=== PATIENT | female | born 1955 | race Caucasian/White ===

== ENCOUNTER → 2018-03-23 07:54 | Outpatient (CLI) | payer OTHER, SELFPAY ==
--- NOTE | 2018-03-23 07:57 | BI_ITS ---
MAMMOGRAPHY - BILATERAL SCREENING REASON FOR EXAM: Female, 62 years old. Routine annual screening examination. PERTINENT HISTORY: Non-contributory. Prior right breast biopsies. TECHNIQUE: Digital bilateral breast shmuel (3D mammographic acquisition) in the CC and MLO projections. 2-D mediolateral oblique (MLO) and craniocaudad (CC) views of both breasts were obtained. CAD: Full Field Digital Mammography with Computer Added Detection was performed. COMPARISON: Comparison is made with prior study dated February 22, 2017 and February 05, 2010. FINDINGS: Breast Composition: The breasts are heterogeneously dense, which may obscure small masses. There are no dominant masses or suspicious calcifications. A tissue clip marker is once again seen in the deep upper lateral portion of the right breast. A subcentimeter well-defined nodular density is seen at that site. This is unchanged. A tissue clip marker is also seen in the retroareolar region of the left breast. Stable benign appearing bilateral axillary lymph nodes. No other significant abnormalities are identified. There has been no significant change since the prior study. BI/SCREENING MAMM (CAD), BILAT IMPRESSION: Stable bilateral screening mammogram. Yearly follow-up mammogram recommended. (A) ASSESSMENT CATEGORY: BIRADS Category 2: Benign. A letter regarding these results will be sent to the patient by the facility within 30 days. Approximately 10% of breast cancers are not detected by mammography. A normal mammogram should not delay biopsy of a clinically suspicious abnormality. [id number] Electronically Signed: Andres Veras MD at 9:31 EST Tel [phone], Service support ,
== END ==
PROVIDERS: Family Provider Family Medicine; PCP Family Medicine; Referring Provider Obstetrics & Gynecology; Visit Provider Obstetrics & Gynecology
DX: Z12.31 Encounter for screening mammogram for malignant neoplasm of breast (principal)
CPT/HCPCS: 77063; 77067

== ENCOUNTER → 2018-05-30 14:32 | Outpatient (CLI) | payer OTHER, SELFPAY ==
[2018-06-06 11:06] LABS: HPV Reflexed? NOT INDICATED
== END ==
PROVIDERS: Visit Provider Obstetrics & Gynecology
DX: Z12.4 Encounter for screening for malignant neoplasm of cervix (principal)
CPT/HCPCS: 88175; G0145

== ENCOUNTER → 2018-06-07 10:03 | Outpatient (CLI) | payer OTHER, SELFPAY ==
[2018-06-08 11:29] LABS: DHEA Sulfate 56.5 ug/dL (29.4-220.5)
== END ==
PROVIDERS: Referring Provider Obstetrics & Gynecology; Visit Provider Obstetrics & Gynecology
DX: R53.83 Other fatigue (principal)
CPT/HCPCS: 82533; 82627; 82626

== ENCOUNTER → 2018-07-17 08:27 | Outpatient (CLI) | payer OTHER, SELFPAY ==
--- NOTE | 2018-07-17 08:30 | BD_ITS ---
STUDY: DUAL ENERGY X-RAY ABSORPTIOMETRY / DXA REASON FOR EXAM: Female, 62 years old. The patient is postmenopausal. Loss of height. TECHNIQUE: Bone Mineral Density (BMD) measurements of lumbar spine and left hip were obtained. COMPARISON: None. FINDINGS: Lumbar Spine (L1-L4): g/cm2 (1.142) / T-score (-0.3) / Z-score (1.2) Findings are suggestive of normal bone density with a low fracture risk. Left Femur Total: g/cm2 (0.776) / T-score (-1.8) / Z-score (-0.7) Left Femoral Neck: g/cm2 (0.697) / T-score (-2.5) / Z-score (-1.1) BD/Dexa Bone Density Study IMPRESSION: The patient is considered osteopenic as outlined below according to World [employer] Organization (WHO) criteria with a high fracture risk. Reference Information: The T-score is the number of standard deviations above or below the standard which is normal for young adults at their peak bone mineral density. The World Health Organization (WHO) interprets the T-scores as follows: Above -1 Normal bone density Between -1 and -2.5 Osteopenia Equal to / or below -2.5 Osteoporosis As a practical clinical guideline, osteopenia may be graded as follows: Mild -1 through -1.5 Moderate -1.6 through -2.0 Severe -2.1 through -2.4 The Z-score is the number of standard deviations above or below age-matched controls. A Z-score of less than -1.5 would be considered abnormal. References: 1. NIH Osteoporosis and Related Bone Diseases http://www.osteo.org 2. International Society for Clinical Densitometry http://www.iscd.org 3. National Osteoporosis Foundation http://www.nof.org Electronically Signed: Andres Veras, at 15:18 EDT , Service support ,
== END ==
PROVIDERS: PCP Family Medicine; Referring Provider Obstetrics & Gynecology; Visit Provider Obstetrics & Gynecology
DX: Z13.820 Encounter for screening for osteoporosis (principal)
CPT/HCPCS: 77080

== ENCOUNTER → 2019-05-28 08:41 | Outpatient (CLI) | payer OTHER, SELFPAY ==
--- NOTE | 2019-05-28 08:50 | BI_ITS ---
MAMMOGRAPHY - BILATERAL SCREENING REASON FOR EXAM: Female, 63 years old. Routine annual screening examination. PERTINENT HISTORY: Non-contributory. TECHNIQUE: Digital bilateral breast ari (3D mammographic acquisition) in the CC and MLO projections. 2-D mediolateral oblique (MLO) and craniocaudad (CC) views of both breasts were obtained. CAD: Full Field Digital Mammography with Computer Added Detection was performed. COMPARISON: Comparison is made with prior study dated March 23, 2018 and February 22, 2017. FINDINGS: Breast Composition: The breasts are heterogeneously dense, which may obscure small masses. There are no dominant masses or suspicious calcifications. A tissue clip marker is once again seen in the deep upper lateral aspect of the right breast. A subcentimeter well-defined nodular density is seen at that site. This is unchanged. A tissue clip marker is also seen in the retroareolar region of the left breast. No other significant abnormalities are identified. There has been no significant change since the prior study. BI/SCREEN MAMM (CAD) W/ARI BILAT IMPRESSION: Stable bilateral screening mammogram. Yearly follow-up mammogram recommended. (A) ASSESSMENT CATEGORY: BIRADS Category 2: Benign. A letter regarding these results will be sent to the patient by the facility within 30 days. Approximately 10% of breast cancers are not detected by mammography. A normal mammogram should not delay biopsy of a clinically suspicious abnormality. [id number] Electronically Signed: Andres Veras, at 10:41 EST , Service support ,
== END ==
PROVIDERS: PCP Family Medicine; Referring Provider Obstetrics & Gynecology; Visit Provider Obstetrics & Gynecology
DX: Z12.31 Encounter for screening mammogram for malignant neoplasm of breast (principal)
CPT/HCPCS: 77063; 77067

== ENCOUNTER → 2020-03-24 16:43 | Outpatient (CLI) | payer OTHER, SELFPAY | PROVIDERS: PCP Family Medicine; Visit Provider Family Medicine | DX: J32.9 Chronic sinusitis, unspecified (principal) | CPT/HCPCS: 87635; U0003 ==

== ENCOUNTER → 2020-07-30 10:55 | Outpatient (CLI) | payer OTHER, SELFPAY ==
--- NOTE | 2020-07-30 10:58 | BI_ITS ---
MAMMOGRAPHY - BILATERAL SCREENING REASON FOR EXAM: Female, 64 years old. Routine annual screening examination. PERTINENT HISTORY: Non-contributory. Remote right stereotactic breast biopsy. TECHNIQUE: Digital bilateral breast ari (3D mammographic acquisition) in the CC and MLO projections. 2-D mediolateral oblique (MLO) and craniocaudad (CC) views of both breasts were obtained. CAD: Full Field Digital Mammography with Computer Added Detection was performed. COMPARISON: Comparison is made with prior study dated 05/28/2019 and 03/23/2018. FINDINGS: Breast Composition: The breasts are heterogeneously dense, which may obscure small masses. There are no dominant masses or suspicious calcifications. Once again, tissue clip marker is seen in the deep upper lateral aspect of the right breast. A tiny nodular density is seen at the biopsy site. This is unchanged. A patient with markers also seen in the retroareolar region of the left breast. No other significant abnormalities are identified. There has been no significant change since the prior study. BI/SCRN MAMM (CAD)W/ARI BILAT IMPRESSION: Stable bilateral screening mammogram. Yearly follow-up mammogram recommended. (A) ASSESSMENT CATEGORY: BIRADS Category 2: Benign. A letter regarding these results will be sent to the patient by the facility within 30 days. Approximately 10% of breast cancers are not detected by mammography. A normal mammogram should not delay biopsy of a clinically suspicious abnormality. [id number] Electronically Signed: Andres Veras MD at 12:20 EDT , Service support ,
--- NOTE | 2020-07-30 10:59 | BD_ITS ---
STUDY: DUAL ENERGY X-RAY ABSORPTIOMETRY / DXA REASON FOR EXAM: Female, 64 years old. [id number]. The patient is postmenopausal. Loss of height. TECHNIQUE: Bone Mineral Density (BMD) measurements of lumbar spine and left hip were obtained. COMPARISON: Comparison is made with prior examination dated 07/17/2018. FINDINGS: Lumbar Spine (L1-L4): g/cm2 (1.101) / T-score (-0.7) / Z-score (0.9) Findings are suggestive of normal bone density with a low fracture risk. Left Femur Total: g/cm2 (0.776) / T-score (-1.8) / Z-score (-0.6) Left Femoral Neck: g/cm2 (0.712) / T-score (-2.3) / Z-score (-0.9) The T-Scores on the most recent prior examination were: Lumbar Spine (L1-L4): There has been worsening of bone density since the previous examination. Left t Femur Total: which represents no significant change. . BD/Dexa Bone Density Study IMPRESSION: The patient is considered osteopenic as outlined below according to World [employer] Organization (WHO) criteria with a high fracture risk. There has been worsening of bone density since the previous examination. Reference Information: The T-score is the number of standard deviations above or below the standard which is normal for young adults at their peak bone mineral density. The World Health Organization (WHO) interprets the T-scores as follows: Above -1 Normal bone density Between -1 and -2.5 Osteopenia Equal to / or below -2.5 Osteoporosis As a practical clinical guideline, osteopenia may be graded as follows: Mild -1 through -1.5 Moderate -1.6 through -2.0 Severe -2.1 through -2.4 The Z-score is the number of standard deviations above or below age-matched controls. A Z-score of less than -1.5 would be considered abnormal. References: 1. NIH Osteoporosis and Related Bone Diseases www osteo.org 2. International Society for Clinical Densitometry www iscd.org 3. National Osteoporosis Foundation www nof.org Electronically Signed: Andres Veras MD at 14:44 EDT , Service support ,
== END ==
PROVIDERS: PCP Family Medicine; Referring Provider Student in an Organized Health Care Education/Training Program; Visit Provider Student in an Organized Health Care Education/Training Program
DX: Z12.31 Encounter for screening mammogram for malignant neoplasm of breast (principal); Z13.820 Encounter for screening for osteoporosis
CPT/HCPCS: 77063; 77067; 77080

== ENCOUNTER → 2020-11-12 08:07 | Outpatient (CLI) | payer OTHER, SELFPAY ==
[2020-11-12 10:13] LABS: Hemoglobin 12.6 g/dL (12.0-15.0); Mean Corp Hgb Conc 32.3 g/dL (32-36); Mean Corpuscular Hgb 28.5 pg (27.0-32.0); Mean Corpuscular Volume 88.2 fL (81-99); Mean Platelet Vol. 9.5 fl (6.2-12.0); Platelet Count 341 K/mm3 (150-450); RBC Distribution Width CV 14.3 % (11.6-14.6); RBC Distribution Width SD 46.1 fl (35.1-43.9); Red Blood Count 4.42 M/mm3 (4.2-5.4); White Blood Count 4.5 K/mm3 (4.4-11.0)
[2020-11-12 10:38] LABS: Vitamin B12 1495 pg/mL (211-911)
[2020-11-12 11:23] LABS: Ferritin 35 ng/mL (8-252); Iron 53 ug/dL (50-170); Iron Binding Capacity,Total 334 ug/dL (250-450); T4 Free Direct 0.96 ng/dL (0.76-1.46)
[2020-11-12 16:21] LABS: Vitamin D,25 Hydroxy 47.1 ng/mL
[2020-11-12 16:26] LABS: Free T3 3.4 pg/mL (2.18-3.98); T3 Uptake 36 % (30-39)
[2020-11-14 13:10] LABS: Zinc, Plasma or Serum 113 ug/dL (44-115)
== END ==
LOC: MTLAB 08:09
PROVIDERS: PCP Family Medicine; Referring Provider Dermatology; Visit Provider Dermatology
DX: L65.0 Telogen effluvium (principal); L30.9 Dermatitis, unspecified
CPT/HCPCS: 36415; 82306; 82607; 82652; 82728; 82746; 83540; 83550; 84439; 84443; 84479; 84481; 84630; 85027

== ENCOUNTER → 2021-03-01 16:20 | Outpatient (CLI) | payer OTHER, SELFPAY ==
--- NOTE | 2021-03-01 16:24 | RAD_ITS ---
STUDY: X-RAY CHEST REASON FOR EXAM: Female, 65 years old. CHEST PAIN COUGH TECHNIQUE: XR Chest 2 Views COMPARISON: 8.19.16 FINDINGS: There are bilateral pleural effusions. There are bilateral infiltrates. Normal size heart. Normal mediastinum and juan pablo. Normal visualized pulmonary arteries. Normal visualized aortic arch and descending thoracic aorta. There are diffuse degenerative changes of the visualized thoracic spine. Normal visualized ribs, clavicles, and shoulders. There is no demonstrated abnormality of the visualized soft tissue structures of the upper abdomen. RAD/Chest PA and Lateral IMPRESSION: There are no acute findings. Electronically Signed: Anoop Raymundo MD at 16:36 EST , Service support ,
== END ==
PROVIDERS: PCP Family Medicine; Referring Provider Nurse Practitioner Family; Visit Provider Nurse Practitioner Family
DX: R05.9 Cough, unspecified (principal)
CPT/HCPCS: 71046

== ENCOUNTER 2021-07-27 09:50 | Outpatient (CLI) | payer OTHER, SELFPAY ==
[2021-08-04 10:26] LABS: HPV APTIMA, High Risk Negative (Negative)
== END 2021-07-27 23:59 | disposition home or self-care (01) ==
LOC: LABSPEC 09:56
PROVIDERS: PCP Family Medicine; Visit Provider Student in an Organized Health Care Education/Training Program
DX: Z12.4 Encounter for screening for malignant neoplasm of cervix (principal)
CPT/HCPCS: 87624; 88175; G0145

== ENCOUNTER → 2021-08-06 | Outpatient (CLI) | payer OTHER, SELFPAY ==
--- NOTE | 2021-08-06 08:45 | BI_ITS ---
MAMMOGRAPHY - BILATERAL SCREENING 3-D TOMOSYNTHESIS REASON FOR EXAM: Female, 65 years old. SCREENING PERTINENT HISTORY: No significant family history. TECHNIQUE: 2-D mammograms and 3-D Tomosynthesis of the breast (s) were performed. CAD was performed. COMPARISON: 07/30/2020 FINDINGS: The breast composition is heterogeneously dense that can obscure small breast masses. Scattered benign calcifications are seen. No dense spiculated masses or suspicious microcalcifications are identified. No architectural distortion is identified. There is no skin thickening or retraction. There has been no significant change since the prior study. BI/SCRN MAMM (CAD)W/ARI BILAT IMPRESSION: No mammographic signs of malignancy. Routine yearly mammograms recommended. ASSESSMENT CATEGORY: BIRADS Category 1: Negative. A letter regarding these results will be sent to the patient by the facility within 30 days. FOLLOW UP RECOMMENDATION: Yearly follow up mammogram recommended. (A) Approximately 10% of breast cancers are not detected by mammography. A normal mammogram should not delay biopsy of a clinically suspicious abnormality. Electronically Signed: Rodri Moeller MD at 9:38 EDT ,
== END | disposition home or self-care (01) ==
LOC: OPBI 08:44
PROVIDERS: Referring Provider Student in an Organized Health Care Education/Training Program; Visit Provider Student in an Organized Health Care Education/Training Program
DX: Z12.31 Encounter for screening mammogram for malignant neoplasm of breast (principal)
CPT/HCPCS: 77063; 77067

== ENCOUNTER → 2022-02-18 | Outpatient (CLI) | payer OTHER, SELFPAY ==
--- NOTE | 2022-02-18 11:15 | RAD_ITS ---
STUDY: X-RAY CHEST REASON FOR EXAM: Female, 66 years old. BRONCHITIS TECHNIQUE: Frontal and lateral views of the chest. COMPARISON: 12/04/2015 and 03/01/2021 FINDINGS: The lungs remain hyperinflated. There is no new focal consolidation. Normal size heart. Normal mediastinum and juan pablo. Normal visualized pulmonary arteries. Normal visualized aortic arch and descending thoracic aorta. Normal visualized thoracic spine. Normal visualized ribs, clavicles, and shoulders. There is no demonstrated abnormality of the visualized soft tissue structures of the upper abdomen. RAD/Chest PA and Lateral IMPRESSION: Stable examination demonstrating no acute cardiopulmonary process. Electronically Signed: Mimi Rosado MD at 14:10 EDT ,
== END | disposition home or self-care (01) ==
LOC: MTLAB 11:13
PROVIDERS: PCP Family Medicine; Referring Provider Family Medicine; Visit Provider Family Medicine
DX: J20.9 Acute bronchitis, unspecified (principal)
CPT/HCPCS: 71046

== ENCOUNTER → 2022-08-15 | Outpatient (CLI) | payer OTHER, SELFPAY ==
--- NOTE | 2022-08-15 08:34 | BI_ITS ---
MAMMOGRAPHY - BILATERAL SCREENING REASON FOR EXAM: Female, 66 years old. Routine annual screening examination. PERTINENT HISTORY: Non-contributory. History of prior right stereotactic breast biopsy. TECHNIQUE: Digital bilateral breast ari (3D mammographic acquisition) in the CC and MLO projections. 2-D mediolateral oblique (MLO) and craniocaudad (CC) views of both breasts were obtained. CAD: Full Field Digital Mammography with Computer Added Detection was performed. COMPARISON: Comparison is made with prior study dated August 06, 2021 and July 30, 2020. FINDINGS: Breast Composition: The breasts are heterogeneously dense, which may obscure small masses. There are no dominant masses or suspicious calcifications. A tissue clip marker is once again seen in the deep upper lateral aspect of the right breast. A tissue clip marker is also seen in the retroareolar region of the left breast. No other significant abnormalities are identified. There has been no significant change since the prior study. BI/SCRN MAMM (CAD)W/ARI BILAT IMPRESSION: Stable bilateral screening mammogram. Yearly follow-up mammogram recommended. (A) ASSESSMENT CATEGORY: BIRADS Category 2: Benign. A letter regarding these results will be sent to the patient by the facility within 30 days. Approximately 10% of breast cancers are not detected by mammography. A normal mammogram should not delay biopsy of a clinically suspicious abnormality. [id number] Electronically Signed: Andres Veras MD at 9:30 EDT ,
== END | disposition home or self-care (01) ==
LOC: OPBI 08:33
PROVIDERS: PCP Family Medicine; Referring Provider Student in an Organized Health Care Education/Training Program; Visit Provider Student in an Organized Health Care Education/Training Program
DX: Z12.31 Encounter for screening mammogram for malignant neoplasm of breast (principal)
CPT/HCPCS: 77063; 77067

== ENCOUNTER → 2023-05-10 | Outpatient (CLI) | payer OTHER, SELFPAY ==
--- OUTSIDE RECORDS SUMMARY | 2023-05-10 17:20 | XMS RPT_ITS | CCD ---
Author Name Unknown Address [address] [place] [address] Organization [facility] Care Team Providers Care Book Illustrator Name Role Phone Unavailable Primary Care Provider UnavailBrandt Kumar MD Unavailable Pcp, No Primary Care Provider UnavailSERA Arevalo Attending Unavailable Brandt Ramos MD Unavailable ANTOINE JEREZ DO Primary Care Physician ANTOINE JEREZ DO Primary Care Unavailable BERNIE THOMAS, DR ASTRID Branch Attending [facility] Allergies Allergy Classification Reported Allergen(s) Allergy Type Date of Onset Reaction(s) Facility (6 sources) Escitalopram; Translations: [ESCITALOPRAM OXALATE] Drug Allergy 0 Intolerance [facility] Work Phone: (5 sources) Sulfamethoxazole / Trimethoprim Drug Allergy 2 Other: See Comments [facility] (6 sources) venlafaxine; Translations: [VENLAFAXINE ANALOGUES] Drug Allergy 0 Intolerance [facility] Work Phone: Medications Current Medications Medication Drug Class(es) Dates Sig (Normalized) Sig (Original) cephalexin 500 mg oral capsule (1 source) Cephalosporin Antibacterial Start: 04-29-2023 End: 05-09-2023 cephalexin 500 mg oral capsule Dose : 500 mg = 1 cap(s), Oral, QID, X 10 day(s), # 40 cap(s), 0 Refill(s), 05/09/23 1:47:00 PM EST, 55.9 Start Date: 04/29/23 Stop Date: 05/09/23 Status: Ordered fluticasone propionate 0.05 mg/actuat metered dose nasal spray (1 source) Corticosteroid Start: 04-29-2023 take 50 ug nasal route once daily in the morning fluticasone proprionate NASAL 50 mcg/ spray 50 mcg Dose = 1 spray(s), Nostril, each, qAM, 0 Refill(s) Start Date: 04/29/23 Status: Ordered levothyroxine sodium 0.025 mg oral tablet (6 sources) l-Thyroxine Start: 04-29-2023 levothyroxine 25 mcg (0.025 mg) oral tablet Dose : 25 mcg = 1 tab(s), Oral, qDay, # 30 tab(s), 0 Refill(s) Start Date: 04/29/23 Status: Ordered Completed/Discontinued Medications Medication Drug Class(es) Dates Sig (Normalized) Sig (Original) Albuterol (Eqv-ProAir HFA) 90 mcg/inh inhalation aerosol (1 source) Start: 04-29-2023 Albuterol (Eqv-ProAir HFA) 90 mcg/inh inhalation aerosol Dose = 2 puff(s), Inhalation, q4h, 2 PUFFS(WAIT 1-5 MINUTES BETWEEN PUFFS) EVERY 4-6 HOURS INHALATION EVERY 6 HRS 90 DAYS Start Date: 04/29/23 Status: Ordered calcium carbonate 1500 mg oral tablet (5 sources) Start: 03-02-2010 take 1 tablet by mouth once daily calcium carbonate (CALTRATE) 600 mg calcium (1,500 mg) tab Take one(1) tablet by mouth daily. 0 03/02/2010 Active Problems Active Problems Problem Classification Problem Date Documented Da te Episodic/Chronic Cancer of bone and connective tissue (5 sources) Osteosarcoma of bone; Translations: [Malignant neoplasm of bone and articular cartilage, unspecified] Onset: 05-28-2012 05-28-2012 Chronic Menopausal disorders (5 sources) Atrophic vaginitis; Translations: [Postmenopausal atrophic vaginitis] Onset: 08-23-2006 02-03-2015 Chronic Nonmalignant breast conditions (5 sources) Fibrocystic disease of breast; Translations: [Diffuse cystic mastopathy of unspecified breast] Onset: 03-29-2005 02-03-2015 Chronic Osteoporosis (5 sources) Senile osteoporosis; Translations: [Age-related osteoporosis without current pathological fracture] Onset: 08-06-2013 08-06-2013 Chronic Other and unspecified benign neoplasm (2 sources) History of polyp of colon; Translations: [Personal history of colonic polyps] Episodic Other nervous system disorders (1 source) Ivory's metatarsalgia; 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, left lower limb] Onset: 01-29-2021 01-29-2021 Chronic Other non-traumatic joint disorders (1 source) Pain in unspecified knee; Translations: [Pain of joint of knee] Onset: 04-29-2023 Episodic Other screening for suspected conditions (not mental disorders or infectious disease) (6 sources) Patient encounter status; Translations: [Encounter for screening for malignant neoplasm of colon] Onset: 06-11-2010 06-11-2010 Episodic Past or Other Problems Problem Classification Problem Date Documented Da te Episodic/Chronic Other and unspecified benign neoplasm (5 sources) Benign neoplasm of rectum and anal canal; Translations: [Benign neoplasm of rectum] Onset: 06-11-2010 06-11-2010 Episodic Results Test Name Value Interpretation Reference Range Facil ity Vital Signs Date Time Vital Sign Value Performing Clinician Facility 04-29-2023 13:52-0500 Diastolic Blood Pressure Non-Invasive 75 mm[Hg] DR ASTRID GIBBS MD [facility] 04-29-2023 13:52-0500 Heart rate 91 /min DR ASTRID GIBBS MD [facility] 04-29-2023 13:52-0500 Respiratory rate 16 /min DR ASTRID GIBBS MD [facility] 04-29-2023 13:52-0500 Systolic Blood Pressure Non-Invasive 133 mm[Hg] DR ASTRID GIBBS MD [facility] 04-29-2023 13:00-0500 Diastolic Blood Pressure Non-Invasive 71 mm[Hg] DR ASTRID GIBBS MD [facility] 04-29-2023 13:00-0500 Heart rate 90 /min DR ASTRID GIBBS MD [facility] 04-29-2023 13:00-0500 Systolic Blood Pressure Non-Invasive 126 mm[Hg] DR ASTRID GIBBS MD [facility] 04-29-2023 12:02-0500 Diastolic Blood Pressure Non-Invasive 63 mm[Hg] DR ASTRID GIBBS MD [facility] 04-29-2023 12:02-0500 Heart rate 83 /min DR ASTRID GIBBS MD [facility] 04-29-2023 12:02-0500 Respiratory rate 15 /min DR ASTRID GIBBS MD [facility] 04-29-2023 12:02-0500 Systolic Blood Pressure Non-Invasive 107 mm[Hg] DR ASTRID GIBBS MD [facility] 04-29-2023 10:09-0500 Body height 167.[address] ASTRID GIBBS MD [facility] 04-29-2023 10:09-0500 Body temperature 98.06 [degF] DR ASTRID GIBBS MD [facility] 04-29-2023 10:09-0500 Body weight 55.[address] ASTRID GIBBS MD [facility] 04-29-2023 10:09-0500 Heart rate 111 /min DR ASTRID GIBBS MD [facility] 05-27-2022 10:07-0500 Heart rate 65 /min Sera Lawton MD Work Phone: [facility] 05-27-2022 10:07-0500 Respiratory rate 16 /min Sera Lawton MD Work Phone: [facility] 05-27-2022 10:07-0500 SaO2% (BldA) [Mass fraction] 98 % Sera Lawton MD Work Phone: [facility] 05-27-2022 09:57-0500 Diastolic blood pressure 70 mm[Hg] Sera Lawton MD Work Phone: [facility] 05-27-2022 09:57-0500 Systolic blood pressure 136 mm[Hg] Sera Lawton MD Work Phone: [facility] 05-27-2022 08:47-0500 Body temperature 99 [degF] Sera Lawton MD Work Phone: [facility] 03-22-2022 09:35-0500 Body height 165.1 cm Sera Lawton MD Work Phone: [facility] 03-22-2022 09:35-0500 Body temperature 97.5 [degF] Sera Lawton MD Work Phone: [facility] 03-22-2022 09:35-0500 Body weight 59.78 kg Sera Lawton MD Work Phone: [facility] 03-22-2022 09:35-0500 Diastolic blood pressure 72 mm[Hg] Sera Lawton MD Work Phone: [facility] 03-22-2022 09:35-0500 Heart rate 78 /min Sera Lawton MD Work Phone: [facility] 03-22-2022 09:35-0500 SaO2% (BldA) [Mass fraction] 99 % Sera Lawton MD Work Phone: [facility] 03-22-2022 09:35-0500 Systolic blood pressure 112 mm[Hg] Sera Lawton MD Work Phone: [facility] Encounters Encounter Date Encounter Type Care Provider Facility Start: 04-29-2023 End: 04-29-2023 Emergency department patient visit ANTOINE JEREZ DO Facility:B Start: 04-29-2023 End: 04-29-2023 Emergency department patient visit DR ASTRID GIBBS MD [facility] Start: 05-30-2022 Telephone encounter Sera Ortiz MD Work Phone: Ambulatory Surgery Procedures Date Procedure Procedure Detail Performing Clinician Start: 05-27-2022 Level iv surg pathol ogy gross&microscopic exam Sera Lawton MD Work Phone: Start: 05-27-2022 Colonoscopy flx dx w /collj spec when pfrmd Sera Lawton MD Work Phone: Start: 05-27-2022 Colonoscopy Sera Lawton MD Work Phone: Start: 11-30-2015 Colonoscopy Sera Lawton MD Work Phone: Start: 08-10-2015 Mammography Sera Lawton MD Work Phone: Start: 05-28-2012 Lipid 1996 panel - S brad or Plasma Sera Lawton MD Work Phone: Arthroplasty of knee DR BRIAN GIBBS MD Plan of Treatment Date Care Activity Detail Author Start: 10-14-2031 Urine microalbumin profile DTaP,Tdap,Td Vaccine (2 - Td or Tdap) [facility] Start: 05-27-2025 Colonoscopy COLONOSCOPY [facility] Start: 05-27-2025 COLORECTAL CANCER SCREENING COLORECTAL CANCER SCREENING [facility] Start: 12-16-2022 Covid-19 Vaccine ( season) Covid-19 Vaccine ( season) [facility] Start: 12-16-2022 Influenza vaccination Influenza Vaccine (#1) [facility] Start: 04-17-2022 ADVANCE DIRECTIVE DISCUSSION ADVANCE DIRECTIVE DISCUSSION [facility] Start: 04-17-2022 DEPRESSION ASSESSMENT DEPRESSION ASSESSMENT [facility] Start: 12-16-2021 Influenza vaccination INFLUENZA (#1) [facility] Start: 04-17-2021 ADVANCE DIRECTIVE DISCUSSION ADVANCE DIRECTIVE DISCUSSION [facility] Start: 04-17-2021 DEPRESSION ASSESSMENT DEPRESSION ASSESSMENT [facility] Start: 04-08-2021 COVID-19 VACCINE (4 - Booster for Moderna series) COVID-19 VACCINE (4 - Booster for Moderna series) [facility] Start: 01-15-2021 Pneumococcal Vaccine: 65+ (2 - PCV) Pneumococcal Vaccine: 65+ (2 - PCV) [facility] Start: 12-16-2020 Influenza vaccination Flu vaccine (#1) [facility] Start: 11-29-2020 Colonoscopy COLONOSCOPY [facility] Start: 11-29-2020 COLORECTAL CANCER SCREENING COLORECTAL CANCER SCREENING [facility] Start: 11-05-2019 PNEUMOCOCCAL: 65+ (1 - PCV) PNEUMOCOCCAL: 65+ (1 - PCV) [facility] Start: 05-28-2017 Lipid 1996 panel - Serum or Plasma Lipid Screening [facility] Start: 05-28-2017 LIPID SCREEN LIPID SCREEN [facility] Start: 08-09-2016 Mammography [facility] Start: 08-19-2015 FECAL OCCULT BLOOD FECAL OCCULT BLOOD [facility] Start: 05-28-2015 DIABETES SCREEN DIABETES SCREEN [facility] Start: 05-28-2015 Diabetes Screening Diabetes Screening [facility] Start: 2014 RSV Vaccine (1 - 1-dose 60+ series) RSV Vaccine (1 - 1-dose 60+ series) [facility] Start: 2009 Screening for osteoporosis DEXA (modify frequency per FRAX score) [facility] Start: 2004 Screening for malignant neoplasm of breast Breast cancer screen [facility] Start: 2004 SHINGRIX VACCINE (1 of 2) SHINGRIX VACCINE (1 of 2) [facility] Start: 11-05-1999 COLOGUARD (FIT-DNA) COLOGUARD (FIT-DNA) [facility] Start: 11-05-[address] COLONOGRAPHY [facility] Start: 11-05-1999 Screening for malignant neoplasm of colon Colon cancer screen colonoscopy [facility] Start: 11-05-1999 SIGMOIDOSCOPY SIGMOIDOSCOPY [facility] Start: 1994 Lipid panel Lipid screen [facility] Start: 1973 DTaP/Tdap/Td vaccine (1 - Tdap) DTaP/Tdap/Td vaccine (1 - Tdap) [facility] Start: 1973 Urine microalbumin profile DTAP,TDAP,TD (1 - Tdap) [facility] Start: 1972 HEPATITIS C SCREENING HEPATITIS C SCREENING [facility] Start: 1966 COVID-19 Vaccine (1) COVID-19 Vaccine (1) [facility] Start: 1954 Hepatitis C screening Hepatitis C screen [facility] End: 03-22-2023 Screening colonoscopy COLONOSCOPY SCREENING Endoscopy Routine History of colonic polyps 1 Occurrences starting 03/22/2022 until 03/22/2023 [facility] Work Phone: Immunizations Immunization Date Immunization Notes Care Provider Rolando ernandez 01-15-2015 influenza virus vacc ine, unspecified formulation Sera Lawton MD Work Phone: [facility] Payers Date Payer Category Payer Private Health Insurance [id number] 2017 Private Health Insurance [id number] 2017 Private Health Insurance [id number] 1954 Unknown [id number] Social History Date Type Detail Facility Start: 01-29-2021 End: 04-29-2023 Tobacco smoking status DCIS Never smoked tobacco [facility] Work Phone: Start: 03-03-2011 End: 01-29-2021 Tobacco use and exposure Smokeless tobacco non-user [facility] Work Phone: Start: 1955 Sex Assigned At Not on file S [facility] Work Phone: Start: 03-22-2022 Alcohol intake Current non-dr family 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 counselor of alcohol (finding) [facility] Start: 08-07-2014 Alcohol Comment Rarely [facility] Start: 05-27-2022 End: 06-01-2022 Alcohol intake Current drinker of alcohol (finding) [facility] Start: 05-02-2022 End: 05-27-2022 History of Social function [facility] Start: 05-02-2022 End: 05-27-2022 Tobacco use panel [facility] National Score (1-10 0), lower number is lower risk 61 [facility] Start: 03-22-2021 Gender identity Identifies as female gender (finding) [facility] Start: 03-22-2021 Sexual orientation Heterosexual (jarod rushing) [facility] Sex Assigned At Female [facility] Functional Status Date Assessment Result Facility 04-29-2023 Functional Status Room check performed [facility] 04-29-2023 Functional Status [facility] Mental Status Date Assessment Result Facility 04-29-2023 Mental Status Orientation Oriented x 4 [facility] 04-29-2023 Mental Status [facility] Clinical Notes 03-22-2022 to 05-06-2023 Telephone Encounter - Sera Lawton MD - 05/30/2022 2:52 PM Viviana Lewis RN - 05/27/2022 9:37 AM Sera Caceres MD - 05/27/2022 9:00 AM ESTPatient Instructions Note Date & Type Note Facility 05-06-2023 Note . MICRO - Microbiology PROCEDURE: Culture Body Fluid with Gram Stain [*1] SOURCE: Body Fluid, BODY SITE: Miscellaneous COLLECTED DATE/TIME: 04/29/2023 13:43 EST RECEIVED DATE/TIME: 04/29/2023 15:58 EST START DATE/TIME: 04/29/2023 15:59 EST FREE TEXT SOURCE: synovial fluid FINAL REPORTS Final Report [] Verified Date/Time/Personnel: 05/06/2023 07:40 EST No aerobes or anaerobes isolated at 7 days. PRELIMINARY REPORTS Preliminary Report [] Verified Date/Time/Personnel: 04/30/2023 12:19 EST No growth to date Preliminary Report [] Verified Date/Time/Personnel: 04/29/2023 16:59 EST Culture has been received in lab and is no growth to date. Routine cultures are held for 5 days. STAINS GS [] Verified Date/Time/Personnel: 04/29/2023 18:40 EST Unsedimented No organisms seen. Performing Locations *1: This test was performed at: [facility], [address] [place] [address], [id number] , [facility] ([facility] 05-04-2023 Note . MICRO - Microbiology PROCEDURE: Blood Culture (bacterial) [*1] SOURCE: Blood BODY SITE: COLLECTED DATE/TIME: 04/29/2023 10:32 EST RECEIVED DATE/TIME: 04/29/2023 15:50 EST START DATE/TIME: 04/29/2023 15:50 EST FREE TEXT SOURCE: FINAL REPORTS Final Report [] Verified Date/Time/Personnel: 05/04/2023 15:59 EST Blood Culture: No Growth at 5 days. PRELIMINARY REPORTS Preliminary Report [] Verified Date/Time/Personnel: 04/29/2023 16:59 EST Culture has been received in lab and is no growth to date. Routine cultures are held for 5 days. Performing Locations *1: This test was performed at: [address] 05-04-2023 Note . MICRO - Microbiology PROCEDURE: Blood Culture (bacterial) [*1] SOURCE: Blood BODY SITE: COLLECTED DATE/TIME: 04/29/2023 10:32 EST RECEIVED DATE/TIME: 04/29/2023 15:50 EST START DATE/TIME: 04/29/2023 15:50 EST FREE TEXT SOURCE: FINAL REPORTS Final Report [] Verified Date/Time/Personnel: 05/04/2023 15:59 EST Blood Culture: No Growth at 5 days. PRELIMINARY REPORTS Preliminary Report [] Verified Date/Time/Personnel: 04/29/2023 16:59 EST Culture has been received in lab and is no growth to date. Routine cultures are held for 5 days. Performing Locations *1: This test was performed at: [address], [address] [place] [address] ([facility] 05-01-2023 Note . MICRO - Microbiology PROCEDURE: Fungal Culture with Stain if Ind [*1] SOURCE: Synovial Fluid BODY SITE: COLLECTED DATE/TIME: 04/29/2023 13:43 EST RECEIVED DATE/TIME: 04/29/2023 15:58 EST START DATE/TIME: 04/29/2023 15:59 EST FREE TEXT SOURCE: PRELIMINARY REPORTS Preliminary Report [] Verified Date/Time/Personnel: 05/01/2023 08:58 EST No fungus isolated to date. Final report to follow. STAINS FUNSM [] Verified Date/Time/Personnel: 05/01/2023 13:59 EST No fungal elements observed by calcofluor white stain. Performing Locations *1: This test was performed at: [address], [address] [place] [address] 05-01-2023 Note . MICRO - Microbiology PROCEDURE: Acid Fast Bacilli Culture w Stain if Ind [*1] SOURCE: Synovial Fluid BODY SITE: COLLECTED DATE/TIME: 04/29/2023 13:43 EST RECEIVED DATE/TIME: 04/29/2023 15:58 EST START DATE/TIME: 04/29/2023 15:59 EST FREE TEXT SOURCE: STAINS AFS [] Verified Date/Time/Personnel: 05/01/2023 13:44 EST Acid Fast Smear from Concentrated Specimen: Negative Performing Locations *1: This test was performed at: [address], [address] [place] [address] ([place]) 04-29-2023 Hospital Discharg e instructions Patient Education 04/29/2023 13:46:54 Knee Pain of Uncertain Cause Knee Pain with Uncertain Cause There are several common causes for knee pain. These can include: A sprain of the ligaments that support the joint An injury to the cartilage lining of the joint Arthritis from ktcy-bjv-gvyg or inflammation There are other causes as well. There may also be swelling, reduced movement of the knee joint, and pain with walking. A definite diagnosis will still need to be made. If your symptoms don't improve, further follow-up and testing may be needed. Home care Stay off the injured leg as much as possible until pain improves. Apply an ice pack over the injured area for 15 to 20 minutes every 3 to 6 hours. You should do this for the first 24 to 48 hours. You can make an ice pack by filling a plastic bag that seals at the top with ice cubes and then wrapping it with a thin towel. Continue to use ice packs for relief of pain and swelling as needed. As the ice melts, be careful not to get your wrap, splint, or cast wet. After 48 hours, apply heat (warm shower or warm bath) for 15 to 20 minutes several times a day, or alternate ice and heat. If you have to wear a dntf-vhk-qvrn knee brace, you can open it to apply the ice pack, or heat, directly to the knee. Never put ice directly on the skin. Always wrap the ice in a towel or other type of cloth. You may use acql-jht-buenqxz pain medicine to control pain, unless another pain medicine was prescribed. If you have chronic liver or kidney disease or ever had a stomach ulcer or gastrointestinal bleeding, talk with your healthcare provider before using these medicines. If crutches or a walker have been recommended, don't put weight on the injured leg until you can do so without pain. Check with your healthcare provider before returning to sports or full work duties. If you have a rcen-hln-fbpl knee brace, you can remove it to bathe and sleep, unless told otherwise. Follow-up care Follow up with your healthcare provider as advised. This is usually within 1 to 2 weeks. If X-rays were taken, you will be told of any new findings that may affect your care Call 911 Call 911 if you have: Shortness of breath Chest pain When to seek medical advice Call your healthcare provider right away if any of these occur: Toes or foot becomes swollen, cold, blue, numb, or tingly Pain or swelling spreads over the knee or calf Warmth or redness appears over the knee or calf Other joints become painful Rash appears Fever of 100.4 F (38 C) or higher, or as directed by your healthcare provider [employer] [id number] [employer]. [address] [place] [address], [place] [address]. All rights reserved. This information is not intended as a substitute for professional medical care. Always follow your healthcare professional's instructions. Follow Up Care 04/29/2023 09:57:11 With:ROXY ELY Address: [address] [place] [address] [facility] [place] [address]- [phone] Business (1) When:2-4 days Comments:Return to ED if symptoms worsen With:ANTOINE JEREZ Address: [address] [place] [address]- [phone] Business (1) When:2-4 days [facility] 04-29-2023 Evaluation + Plan note Diagnostic Tests PendingAcid Fast Bacilli Culture w Stain if Ind 04/29/23Fungal Culture with Stain if Ind 04/29/23 [facility] 04-29-2023 Note Discharge Instructions Thank you for allowing [facility] to assist you with your healthcare needs. The following is important discharge information regarding your hospital visit. Diagnosis from Today's Visit Body aches Chills Knee pain Leg pain-swelling Runny nose What to Do Next Instructions from Your Care Team No qualifying data available. Post Acute Orders No qualifying data available. You Need to Schedule the Following Appointments Follow Up with ROXY ELY When Within 2-4 days Why: Return to ED if symptoms worsen [facility] [address] [facility] [address] [place] [address] [phone] Business (1) Follow Up with ANTOINE JEREZ When Within 2-4 days Where: [address] [place] [address]- [phone] Business (1) Allergies NKA Medications Please ask your primary doctor or pharmacist before taking any other medication not listed, including over the counter drugs, herbal medications, vitamins and or supplements as they may interact with your home medications. What How Much When Why Instructions Last Dose New cephalexin (cephalexin 500 mg oral capsule) 1 cap by mouth Four (4) times a day Duration: 10 Days Printed Prescription New oxyCODONE (oxyCODONE 5 mg oral tablet ( IMMEDIATE release )) 1 tab(s) by mouth Every 6 hours as needed for for pain Knee pain Duration: 5 Days Printed Prescription New sulfamethoxazole-trimethoprim (Bactrim DS 800 mg-160 mg oral tablet) 1 tab(s) by mouth Two (2) times a day Duration: 10 Days Printed Prescription Unchanged albuterol (Albuterol (Eqv-ProAir HFA) 90 mcg/ inh inhalation aerosol) 2 puff(s) by inhalation Every 4 hours 2 PUFFS(WAIT 1-5 MINUTES BETWEEN PUFFS) EVERY 4-6 HOURS INHALATION EVERY 6 HRS 90 DAYS Unchanged fluticasone nasal (fluticasone proprionate NASAL 50 mcg/ spray) 1 spray(s) each nostril Once a day (in the morning) Unchanged levothyroxine (levothyroxine 25 mcg (0.025 mg) oral tablet) 1 tab(s) by mouth Once a day Unchanged meloxicam (meloxicam 15 mg oral tablet) 1 tab(s) by mouth Once a day Please take this list to your next doctor s visit. Bring all medications you take, including over the counter medications, herbals and other supplements with you to your doctor s visit. Patients and families are reminded to discard old lists and to update any records with all medication providers or retail pharmacies. Medication Leaflets cephalexin (sef a JUAN ANTONIO in) What is the most important information I should know about cephalexin? You should not use this medicine if you are allergic to cephalexin or to similar antibiotics, such as Ceftin, Cefzil, Omnicef, and others. Tell your doctor if you are allergic to any drugs, especially penicillins or other antibiotics. What is cephalexin? Cephalexin is a cephalosporin (SEF a low spor in) antibiotic that is used to treat bacterial infections of the lungs, ear, skin, bones, bladder, and kidneys. Cephalexin is used to treat infections in adults and children who are at least 1 year old. Cephalexin may also be used for purposes not listed in this medication guide. What should I discuss with my healthcare provider before taking cephalexin? You should not use this medicine if you are allergic to cephalexin or any other cephalosporin antibiotic (cefdinir, cefadroxil, cefoxitin, cefprozil, ceftriaxone, cefuroxime, Omnicef, and others). Tell your doctor if you have ever had: an allergy to any drug (especially penicillin); liver or kidney disease; or intestinal problems, such as colitis. The liquid form of cephalexin may contain sugar. This may affect you if you have diabetes. Tell your doctor if you are or breast-feeding. How should I take cephalexin? Follow all directions on your prescription label and read all medication guides or instruction sheets. Use the medicine exactly as directed. Do not use cephalexin to treat any condition that has not been checked by your doctor. Measure liquid medicine carefully. Use the dosing syringe provided, or use a medicine dose-measuring device (not a kitchen spoon). Use this medicine for the full prescribed length of time, even if your symptoms quickly improve. Skipping doses can increase your risk of infection that is resistant to medication. Cephalexin will not treat a viral infection such as the flu or a common cold. Do not share cephalexin with another person, even if they have the same symptoms you have. This medicine can affect the results of certain medical tests. Tell any doctor who treats you that you are using cephalexin. Store the tablets and capsules at room temperature away from moisture, heat, and light. Store the liquid medicine in the refrigerator. Throw away any unused liquid after 14 days. What happens if I miss a dose? Take the medicine as soon as you can, but skip the missed dose if it is almost time for your next dose. Do not take two doses at one time. What happens if I overdose? Seek emergency medical attention or call the Poison Help line at . Overdose symptoms may include nausea, vomiting, stomach pain, diarrhea, and blood in your urine. What should I avoid while taking cephalexin? Antibiotic medicines can cause diarrhea, which may be a sign of a new infection. If you have diarrhea that is watery or bloody, call your doctor before using anti-diarrhea medicine. What are the possible side effects of cephalexin? Get emergency medical help if you have signs of an allergic reaction (hives, difficult breathing, swelling in your face or throat) or a severe skin reaction (fever, sore throat, burning eyes, skin pain, red or purple skin rash with blistering and peeling). Call your doctor at once if you have: severe stomach pain, diarrhea that is watery or bloody (even if it occurs months after your last dose); unusual tiredness, feeling light-headed or short of breath; easy bruising, unusual bleeding, purple or red spots under your skin; a seizure; pale skin, cold hands and feet; yellowed skin, dark colored urine; fever, weakness; or pain in your side or lower back, painful urination. Common side effects may include: diarrhea; nausea, vomiting; indigestion, stomach pain; or vaginal itching or discharge. This is not a complete list of side effects and others may occur. Call your doctor for medical advice about side effects. You may report side effects to FDA at 9-702-PLS-0295. What other drugs will affect cephalexin? Tell your doctor about all your other medicines, especially: metformin; or probenecid. This list is not complete. Other drugs may affect cephalexin, including prescription and lzrm-zrh-rwwlbyj medicines, vitamins, and herbal products. Not all possible drug interactions are listed here. Where can I get more information? Your pharmacist can provide more information about cephalexin. Remember, keep this and all other medicines out of the reach of children, never share your medicines with others, and use this medication only for the indication prescribed. Every effort has been made to ensure that the information provided by [employer]. [employer]') is accurate, up-to-date, and complete, but no guarantee is made to that effect. Drug information contained herein may be time sensitive. [employer] information has been compiled for use by healthcare practitioners and consumers in the [place] and therefore [employer] does not warrant that uses outside of the [place] are appropriate, unless specifically indicated otherwise. [employer] drug information does not endorse drugs, diagnose patients or recommend therapy. [employer] drug information is an informational resource designed to assist licensed healthcare practitioners in caring for their patients and/or to serve consumers viewing this service as a supplement to, and not a substitute for, the expertise, skill, knowledge and judgment of healthcare practitioners. The absence of a warning for a given drug or drug combination in no way should be construed to indicate that the drug or drug combination is safe, effective or appropriate for any given patient. [employer] does not assume any responsibility for any aspect of healthcare administered with the aid of information [employer] provides. The information contained herein is not intended to cover all possible uses, directions, precautions, warnings, drug interactions, allergic reactions, or adverse effects. If you have questions about the drugs you are taking, check with your doctor, nurse or pharmacist. Copyright 8613-0856 [employer]. Version: 12.. Revision Date: 11/16/2022. oxycodone (ox i KOE done) Oxaydo, OxyCONTIN, Roxicodone, RoxyBond, Xtampza ER What is the most important information I should know about oxycodone? MISUSE OF OPIOID MEDICINE CAN CAUSE ADDICTION, OVERDOSE, OR . Keep the medication in a place where others cannot get to it. Taking opioid medicine during may cause life-threatening withdrawal symptoms in the . Fatal side effects can occur if you use opioid medicine with alcohol, or with other drugs that cause drowsiness or slow your breathing. What is oxycodone? Oxycodone is an opioid pain medication used to treat moderate to severe pain. The extended-release form of oxycodone is for fmeuoh-bis-bunzs treatment of pain and should not be used on an as-needed basis for pain. Oxycodone may also be used for purposes not listed in this medication guide. What should I discuss with my healthcare provider before using oxycodone? You should not use oxycodone if you are allergic to it, or if you have: severe asthma or breathing problems; or a blockage in your stomach or intestines. You should not use oxycodone unless you are already using a similar opioid medicine and are tolerant to it. Most brands of oxycodone are not approved for use in people under 18. OxyContin should not be given to a child younger than 11 years old. Tell your doctor if you have ever had: breathing problems, sleep apnea; a head injury, or seizures; drug or alcohol addiction, or mental illness; liver or kidney disease; urination problems; or problems with your gallbladder, pancreas, or thyroid. If you use opioid medicine while you are , your baby could become dependent on the drug. This can cause life-threatening withdrawal symptoms in the baby after it is born. Babies born dependent on opioids may need medical treatment for several weeks. Ask a doctor before using opioid medicine if you are . Tell your doctor if you notice severe drowsiness or slow breathing in the nursing baby. How should I use oxycodone? Follow the directions on your prescription label and read all medication guides. Never use oxycodone in larger amounts, or for longer than prescribed. Tell your doctor if you feel an increased urge to take more of this medicine. Never share opioid medicine with another person, especially someone with a history of drug abuse or addiction. MISUSE CAN CAUSE ADDICTION, OVERDOSE, OR . Keep the medication in a place where others cannot get to it. Selling or giving away opioid medicine is against the law. Stop taking all other hkdmle-tsg-vniwh opioid pain medicines when you start taking extended-release oxycodone. Take oxycodone with food. Swallow the capsule or tablet whole to avoid exposure to a potentially fatal overdose. Do not crush, chew, break, open, or dissolve. If you cannot swallow a capsule whole, open it and sprinkle the medicine into a spoonful of pudding or applesauce. Swallow the mixture right away without chewing. Do not save it for later use. Never crush or break an oxycodone pill to inhale the powder or mix it into a liquid to inject the drug into your vein. This can cause in . Measure liquid medicine carefully. Use the dosing syringe provided, or use a medicine dose-measuring device (not a kitchen spoon). You should not stop using oxycodone suddenly. Follow your doctor's instructions about tapering your dose. Store at room temperature, away from heat, moisture, and light. Keep track of your medicine. Oxycodone is a drug of abuse and you should be aware if anyone is using your medicine improperly or without a prescription. Do not keep leftover opioid medication. Just one dose can cause in someone using this medicine accidentally or improperly. Ask your pharmacist where to locate a drug take-back disposal program. If there is no take-back program, flush the unused medicine down the toilet. What happens if I miss a dose? Since oxycodone is used for pain, you are not likely to miss a dose. Skip any missed dose if it is almost time for your next dose. Do not use two doses at one time. What happens if I overdose? Seek emergency medical attention or call the Poison Help line at . An opioid overdose can be fatal, especially in a child or other person using the medicine without a prescription. Overdose symptoms may include severe drowsiness, pinpoint pupils, slow breathing, or no breathing. Your doctor may recommend you get naloxone (a medicine to reverse an opioid overdose) and keep it with you at all times. A person caring for you can give the naloxone if you stop breathing or don't wake up. Your caregiver must still get emergency medical help and may need to perform CPR (cardiopulmonary resuscitation) on you while waiting for help to arrive. Anyone can buy naloxone from a pharmacy or local health department. Make sure any person caring for you knows where you keep naloxone and how to use it. What should I avoid while using oxycodone? Do not drink alcohol. Dangerous side effects or could occur. Avoid driving or operating machinery until you know how oxycodone will affect you. Dizziness or severe drowsiness can cause falls or other accidents. Avoid medication errors. Always check the brand and strength of oxycodone you get from the pharmacy. What are the possible side effects of oxycodone? Get emergency medical help if you have signs of an allergic reaction: hives; difficult breathing; swelling of your face, lips, tongue, or throat. Opioid medicine can slow or stop your breathing, and may occur. A person caring for you should give naloxone and/or seek emergency medical attention if you have slow breathing with long pauses, blue colored lips, or if you are hard to wake up. Call your doctor at once if you have: noisy breathing, sighing, shallow breathing, breathing that stops during sleep; a slow heart rate or weak pulse; a light-headed feeling, like you might pass out; confusion, unusual thoughts or behavior; seizure (convulsions); low cortisol levels-- nausea, vomiting, loss of appetite, dizziness, worsening tiredness or weakness; or high levels of serotonin in the body--agitation, hallucinations, fever, sweating, shivering, fast heart rate, muscle stiffness, twitching, loss of coordination, nausea, vomiting, diarrhea. Serious breathing problems may be more likely in older adults and in those who are debilitated or have wasting syndrome or chronic breathing disorders. Common side effects may include: drowsiness, headache, dizziness, tiredness; or constipation, stomach pain, nausea, vomiting. This is not a complete list of side effects and others may occur. Call your doctor for medical advice about side effects. You may report side effects to FDA at 7-370-LZU-6258. What other drugs will affect oxycodone? You may have breathing problems or withdrawal symptoms if you start or stop taking certain other medicines. Tell your doctor if you also use an antibiotic, antifungal medication, heart or blood pressure medication, seizure medication, or medicine to treat HIV or hepatitis C. Opioid medication can interact with many other drugs and cause dangerous side effects or . Be sure your doctor knows if you also use: cold or allergy medicines, bronchodilator asthma/COPD medication, or a diuretic ('water pill'); medicines for motion sickness, irritable bowel syndrome, or overactive bladder; other opioids--opioid pain medicine or prescription cough medicine; a sedative like Valium--diazepam, alprazolam, lorazepam, Xanax, Klonopin, Versed, and others; drugs that make you sleepy or slow your breathing--a sleeping pill, muscle relaxer, medicine to treat mood disorders or mental illness; or drugs that affect serotonin levels in your body--a stimulant, or medicine for depression, Parkinson's disease, migraine headaches, serious infections, or nausea and vomiting. This list is not complete and many other drugs may affect oxycodone. This includes prescription and lozb-jfz-rhkhwrx medicines, vitamins, and herbal products. Not all possible drug interactions are listed here. Where can I get more information? Your pharmacist can provide more information about oxycodone. Remember, keep this and all other medicines out of the reach of children, never share your medicines with others, and use this medication only for the indication prescribed. Every effort has been made to ensure that the information provided by [employer]. [employer]') is accurate, up-to-date, and complete, but no guarantee is made to that effect. Drug information contained herein may be time sensitive. [employer] information has been compiled for use by healthcare practitioners and consumers in the [place] and therefore [employer] does not warrant that uses outside of the [place] are appropriate, unless specifically indicated otherwise. [employer]'s drug information does not endorse drugs, diagnose patients or recommend therapy. [employer] drug information is an informational resource designed to assist licensed healthcare practitioners in caring for their patients and/or to serve consumers viewing this service as a supplement to, and not a substitute for, the expertise, skill, knowledge and judgment of healthcare practitioners. The absence of a warning for a given drug or drug combination in no way should be construed to indicate that the drug or drug combination is safe, effective or appropriate for any given patient. [employer] does not assume any responsibility for any aspect of healthcare administered with the aid of information [employer] provides. The information contained herein is not intended to cover all possible uses, directions, precautions, warnings, drug interactions, allergic reactions, or adverse effects. If you have questions about the drugs you are taking, check with your doctor, nurse or pharmacist. Copyright 6711-5471 [employer]. Version: 16.01. Revision Date: 11/18/2022. sulfamethoxazole and trimethoprim (oral/injection) (SUL fa meth OX a zole and trye METH oh prim) Bactrim, Bactrim DS, Sulfatrim Pediatric What is the most important information I should know about sulfamethoxazole and trimethoprim? Use only as directed. Tell your doctor if you use other medicines or have other medical conditions or allergies. What is sulfamethoxazole and trimethoprim? Sulfamethoxazole and trimethoprim is a combination antibiotic used to treat ear infections, urinary tract infections, bronchitis, traveler's diarrhea, shigellosis, and Pneumocystis jiroveci pneumonia. Sulfamethoxazole and trimethoprim may also be used for purposes not listed in this medication guide. What should I discuss with my healthcare provider before using sulfamethoxazole and trimethoprim? You should not use this medicine if you are allergic to sulfamethoxazole or trimethoprim, or if you have: severe liver disease; kidney disease that is not being treated or monitored; anemia (low red blood cells) caused by folic acid deficiency; a history of low blood platelets after taking trimethoprim or any sulfa drug; or if you take dofetilide. May cause defects. Do not use if you are . Tell your doctor if you become . Do not breastfeed. This medicine should not be given to a child younger than 2 months old. Tell your doctor if you have ever had: kidney or liver disease; a folate (folic acid) deficiency; asthma or severe allergies; HIV or AIDS; a thyroid disorder; malnourishment; alcoholism; an electrolyte imbalance (such as low blood sodium or high potassium); porphyria, or isjekok-4-ikwmczihv dehydrogenase (G6PD) deficiency; or if you use a blood thinner (such as warfarin) and you have routine 'INR' or prothrombin time tests. How should I use sulfamethoxazole and trimethoprim? Follow all directions on your prescription label and read all medication guides or instruction sheets. Use the medicine exactly as directed. Sulfamethoxazole and trimethoprim oral is taken by mouth. Shake the oral suspension (liquid). Measure a dose with the supplied measuring device (not a kitchen spoon). Sulfamethoxazole and trimethoprim injection is given in a vein. Be sure you understand how to properly mix this medicine with a liquid (diluent) and how to store the mixture. Ask your doctor or pharmacist if you don't understand how to use an injection. Prepare an injection only when you are ready to give it. Call your pharmacist if the medicine looks cloudy, has changed colors, or has particles in it. Mixed medicine must be used within 2 to 6 hours depending on the amount of diluent in the mixture. Follow your doctor's instructions. Do not refrigerate mixed medicine. Do not reuse a needle or syringe. Place them in a puncture-proof 'sharps' container and dispose of it following state or local laws. Keep out of the reach of children and pets. Drink plenty of fluids to prevent kidney stones. Antibiotic medicines can cause diarrhea. Tell your doctor if you have diarrhea that is watery or bloody. Keep using this medicine even if your symptoms quickly improve. Skipping doses could make your infection resistant to medication. Sulfamethoxazole and trimethoprim will not treat a viral infection (flu or a common cold). You may need blood and urine tests, and this medicine may be stopped based on the results. Store at room temperature away from moisture, heat, and light. Do not refrigerate. What happens if I miss a dose? Use the medicine as soon as you can, but skip the missed dose if it is almost time for your next dose. Do not use two doses at one time. What happens if I overdose? Seek emergency medical attention or call the Poison Help line at . Overdose symptoms may include loss of appetite, vomiting, fever, blood in your urine, yellowing of your skin or eyes, confusion, or loss of consciousness. What should I avoid while using sulfamethoxazole and trimethoprim? If you use the injection form of this medicine, do not eat or drink anything that contains propylene glycol (an ingredient in many processed foods, soft drinks, and medicines). Dangerous effects could occur. Sulfamethoxazole and trimethoprim could make you sunburn more easily. Avoid sunlight or tanning beds. Wear protective clothing and use sunscreen (SPF 30 or higher) when you are outdoors. What are the possible side effects of sulfamethoxazole and trimethoprim? Get emergency medical help if you have signs of an allergic reaction (hives, cough, chest pain, shortness of breath, swelling in your face or throat) or a severe skin reaction (fever, sore throat, burning eyes, skin pain, red or purple skin rash with blistering and peeling). Seek medical treatment if you have a serious drug reaction that can affect many parts of your body. Symptoms may include: skin rash, fever, swollen glands, joint pain, muscle aches, severe weakness, pale skin, unusual bruising, or yellowing of your skin or eyes. Call your doctor at once if you have: severe stomach pain, diarrhea that is watery or bloody (even if it occurs months after your last dose); any skin rash, no matter how mild; yellowing of your skin or eyes; a seizure; new or unusual joint pain; increased or decreased urination; swelling, bruising, or irritation around the IV needle; increased thirst, dry mouth, fruity breath odor; new or worsening cough, fever, trouble breathing; high blood potassium--nausea, weakness, tingly feeling, chest pain, irregular heartbeats, loss of movement; low blood sodium--headache, confusion, problems with thinking or memory, weakness, feeling unsteady; or low blood cell counts--fever, chills, mouth sores, skin sores, easy bruising, unusual bleeding, pale skin, cold hands and feet, feeling light-headed or short of breath. Common side effects may include: nausea, vomiting, loss of appetite; or skin rash. This is not a complete list of side effects and others may occur. Call your doctor for medical advice about side effects. You may report side effects to FDA at 2-677-AIH-9638. What other drugs will affect sulfamethoxazole and trimethoprim? You may need more frequent check-ups or medical tests if you also use medicine to treat depression, diabetes, seizures, or HIV. Tell your doctor about all your current medicines. Many drugs can affect sulfamethoxazole and trimethoprim, especially: amantadine, digoxin, cyclosporine, indomethacin, leucovorin, methotrexate, procainamide, pyrimethamine; an 'SILVANA inhibitor' heart or blood presure medication (benazepril, enalapril, lisinopril, quinapril, ramipril, and others); or a diuretic or 'water pill'. This list is not complete and many other drugs may affect sulfamethoxazole and trimethoprim. This includes prescription and upmv-rzw-shvdsxe medicines, vitamins, and herbal products. Not all possible drug interactions are listed here. Where can I get more information? Your pharmacist can provide more information about sulfamethoxazole and trimethoprim. Remember, keep this and all other medicines out of the reach of children, never share your medicines with others, and use this medication only for the indication prescribed. Every effort has been made to ensure that the information provided by [employer]. ('[employer]') is accurate, up-to-date, and complete, but no guarantee is made to that effect. Drug information contained herein may be time sensitive. [employer] information has been compiled for use by healthcare practitioners and consumers in the [place] and therefore [employer] does not warrant that uses outside of the [place] are appropriate, unless specifically indicated otherwise. [employer]'s drug information does not endorse drugs, diagnose patients or recommend therapy. [employer] drug information is an informational resource designed to assist licensed healthcare practitioners in caring for their patients and/or to serve consumers viewing this service as a supplement to, and not a substitute for, the expertise, skill, knowledge and judgment of healthcare practitioners. The absence of a warning for a given drug or drug combination in no way should be construed to indicate that the drug or drug combination is safe, effective or appropriate for any given patient. [employer] does not assume any responsibility for any aspect of healthcare administered with the aid of information [employer] provides. The information contained herein is not intended to cover all possible uses, directions, precautions, warnings, drug interactions, allergic reactions, or adverse effects. If you have questions about the drugs you are taking, check with your doctor, nurse or pharmacist. Copyright 4236-5408 [employer]. Version: 13.. Revision Date: 11/17/2022. Education Materials Knee Pain with Uncertain Cause There are several common causes for knee pain. These can include: A sprain of the ligaments that support the joint An injury to the cartilage lining of the joint Arthritis from xwhe-xxf-xoyo or inflammation There are other causes as well. There may also be swelling, reduced movement of the knee joint, and pain with walking. A definite diagnosis will still need to be made. If your symptoms don't improve, further follow-up and testing may be needed. Home care Stay off the injured leg as much as possible until pain improves. Apply an ice pack over the injured area for 15 to 20 minutes every 3 to 6 hours. You should do this for the first 24 to 48 hours. You can make an ice pack by filling a plastic bag that seals at the top with ice cubes and then wrapping it with a thin towel. Continue to use ice packs for relief of pain and swelling as needed. As the ice melts, be careful not to get your wrap, splint, or cast wet. After 48 hours, apply heat (warm shower or warm bath) for 15 to 20 minutes several times a day, or alternate ice and heat. If you have to wear a exiw-ofj-ywqd knee brace, you can open it to apply the ice pack, or heat, directly to the knee. Never put ice directly on the skin. Always wrap the ice in a towel or other type of cloth. You may use bwvi-uei-lcixwng pain medicine to control pain, unless another pain medicine was prescribed. If you have chronic liver or kidney disease or ever had a stomach ulcer or gastrointestinal bleeding, talk with your healthcare provider before using these medicines. If crutches or a walker have been recommended, don't put weight on the injured leg until you can do so without pain. Check with your healthcare provider before returning to sports or full work duties. If you have a muws-fzh-lvuv knee brace, you can remove it to bathe and sleep, unless told otherwise. Follow-up care Follow up with your healthcare provider as advised. This is usually within 1 to 2 weeks. If X-rays were taken, you will be told of any new findings that may affect your care Call 911 Call 911 if you have: Shortness of breath Chest pain When to seek medical advice Call your healthcare provider right away if any of these occur: Toes or foot becomes swollen, cold, blue, numb, or tingly Pain or swelling spreads over the knee or calf Warmth or redness appears over the knee or calf Other joints become painful Rash appears Fever of 100.4 F (38 C) or higher, or as directed by your healthcare provider [place] 4361-4995 [employer]. [address] [place] [address], [place] [address]. All rights reserved. This information is not intended as a substitute for professional medical care. Always follow your healthcare professional's instructions. Additional Information VACCINATE! IT SAVES LIVES! Members of the community who have not yet received the COVID-19 vaccine and would like to receive it can visit one of [facility] vaccine clinics. There are many vaccine clinic locations within the [facility]. For locations and available times, please visit [email or web address] .gov/. It is important to note that some COVID mobile vaccine clinics are held outdoors and may be canceled in rainy or stormy conditions. To learn more about pediatric vaccinations (ages 5-11), we invite you to visit the [facility] webpage. [email or web address].[email or web address]/ [email or web address]-Uaygd-Efutbojiubt-Fr jpkfusvs-Lqzgn-Jpgtdurln.html To learn more about the COVID-19 vaccine, we invite you to visit the CDC website for a list of frequently asked questions. https://www.cdc.gov/coronavirus /2019-ncov/vaccines/faq.html [facility] Patient Portal Access Instructions: Stay connected with your healthcare team and access your personal medical information anytime with the [facility] Patient Portal. If you would like a full copy of your medical records please contact the [facility] Medical Records Department Monday through Monday between 8a.m. and 4:30p.m. Please follow the directions below to access the portal: 1.Access the email account you provided upon registration to the hospital.2.Look for an invitation email from [facility].3.Open the email and access the invitation link: Accept Invitation to [facility]4.Fill in the required bishop to create your account. Sign into www.[employer] with your username and password that you created in the above steps to stay up to date. You can then view a summary of results, a summary of your visits, and the ability to download your summaries to your computer or send the information securely to a physician. Remember that your healthcare information is confidential, so carefully consider who you will allow to register on the [facility] Patient Portal for access to your information. You can also access the [facility] Patient Portal on the [employer] holland. Simply click on Health Records under Health Data and then click on the [facility] logo. HOW TO SAFELY DISPOSE OF PRESCRIPTION MEDICATIONS Please use one of the following methods to safely dispose of your unused medications. 1.Use a drug disposal kit: the drug disposal pouch allows you to safely discard your old and unused drugs. Ask your nurse to give you one when you are discharged.2.Visit a local take-back location: Many local pharmacies and police departments have programs that collect old and unwanted prescription drugs. Call your local pharmacy or go to http://[employer]/4D8Ff0n to find one close to you.3.Make use of household items: Use cat litter or old coffee grounds to dispose medications if other options are not available. Mix your drugs with these household products, seal them in an airtight container and throw it into the garbage. Call [facility]: [phone] to be sure your drugs can be disposed of in this way. Some medicines may require a different approach.4.Never flush your medications down the toilet. IF YOU HAVE BEEN PRESCRIBED AN OPIOIDS FOR PAIN If you have been prescribed an opioid (such as hydrocodone, oxycodone or morphine), it is critical to understand the possible side effects and risks of opioid pain medications. Even when taken as directed, opioids can have several side effects including: Tolerance, meaning you might need to take more of a medication for the same pain relief. Nausea, vomiting and/or constipation. Sleepiness, dizziness, dry mouth, confusion, depression or itching. Physical dependence, meaning you have withdrawal symptoms when a medication is stopped ? this can develop within a few days. KNOW YOUR RESPONSIBILITIES It is important to know exactly how much and how often to take the opioid pain medications you are prescribed. Never take opioids in higher amounts or more often than prescribed. Do not combine opioids with alcohol or other drugs that cause drowsiness, such as benzodiazepines, also known as benzos, including diazepam and alprazolam, muscle relaxants or sleep aids. Never sell or share prescription opioids. This is illegal. Store opioids in a secure place and out of reach of others (including children, family, friends and visitors). The last page(s) of this document has been signed and retained as a CHART COPY Signatures Patient Education Materials Knee Pain of Uncertain Cause Medication Leaflets cephalexin, oxycodone, sulfamethoxazole and trimethoprim (oral/injection) My discharge plan and instructions have been reviewed and explained to me and I,REVA TAYLOR understand my current condition and have read and understand these discharge instructions. I have received a written copy of the plan/instructions. If I have questions, I am aware that I should contact my doctor. 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 HISTORY: ORDERING SYSTEM PROVIDED HISTORY: Reason for Exam: Pain FINDINGS: Surgical prosthesis noted in the left knee. There is resection of a distal segment of the femur with cement type material surrounding the prosthesis of the femur in this region. Lucency is seen surrounding the tibial stem. The lucency is well-defined and could relate to prior surgical revision. There is osteopenia. IMPRESSION: Extensive surgical changes. Lucency around the tibial stem is nonspecific but could relate to revision of a prior knee arthroplasty. If there is concern for loosening or infection, a follow-up dual acquisition bone scan will be necessary Interpreted by: Arthur Rojas MD Preliminary Report By: Arthur Rojas MD Electronically signed By Arthur Rojas MD Dictated Date: 04/29/2023 1:37:37 PM Prelim Date: 04/29/2023 1:40:11 PM Sign Date: 04/29/2023 1:40:11 PM Ordering Provider: ASTRID GIBBS [facility] 04-29-2023 Note ORIGINAL EXAMINATION: TWO XRAY VIEWS OF THE LEFT KNEE04/29/2023 1:32 pm COMPARISON: None. HISTORY: ORDERING SYSTEM PROVIDED HISTORY: Reason for Exam: Pain FINDINGS: Surgical prosthesis noted in the left knee. There is resection of a distal segment of the femur with cement type material surrounding the prosthesis of the femur in this region. Lucency is seen surrounding the tibial stem. The lucency is well-defined and could relate to prior surgical revision. There is osteopenia. IMPRESSION: Extensive surgical changes. Lucency around the tibial stem is nonspecific but could relate to revision of a prior knee arthroplasty. If there is concern for loosening or infection, a follow-up dual acquisition bone scan will be necessary Interpreted by: Arthur Rojas MD Preliminary Report By: Arthur Rojas MD Electronically signed By Arthur Rojas MD Dictated Date: 04/29/2023 1:37:37 PM Prelim Date: 04/29/2023 1:40:11 PM Sign Date: 04/29/2023 1:40:11 PM Ordering Provider: [facility] 04-29-2023 Note ORIGINAL EXAMINATION: XRAY VIEWS OF THE RIGHT FEMUR04/29/2023 11:52 am FEMUR RIGHT CLINICAL STATEMENT: . COMPARISON: None HISTORY: ORDERING SYSTEM PROVIDED HISTORY: Reason for Exam: pain FINDINGS: No status post total knee arthroplasty, with likely revision with a femoral kaleb extending to the level of the lesser trochanter. There is perihardware lucency surrounding the tibial component. No evidence of hardware fracture. No evidence of osseous fracture or traumatic malalignment. The knee joint is poorly visualized. Grossly unremarkable soft tissues. IMPRESSION: 1. No evidence of acute fracture. 2. Status post total knee arthroplasty, with likely revision with findings suspicious for hardware loosening or infection involving the tibial component. Highly recommend correlation with any prior imaging to assess stability over time and clinical correlation. Interpreted by: Josias Guevara Preliminary Report By: Josias Guevara Electronically signed By Josias Guevara Dictated Date: 04/29/2023 12:08:51 PM Prelim Date: 04/29/2023 12:11:26 PM Sign Date: 04/29/2023 12:11:26 PM Ordering Provider: [facility] 04-29-2023 Note ORIGINAL EXAMINATION: ONE XRAY VIEW OF THE CHEST04/29/2023 10:58 am COMPARISON: None. HISTORY: ORDERING SYSTEM PROVIDED HISTORY: Reason for Exam: SOB/cough/fever FINDINGS: The heart is normal in size. Vascular structures appear within normal limits. There is no consolidation. No pleural fluid or pneumothorax. No aggressive osseous lesions identified.Prominent costochondral calcifications seen. Left upper quadrant rim calcified structure may be related to the spleen or splenic artery. IMPRESSION: No acute radiographic findings. Interpreted by: Arthur Rojas MD Preliminary Report By: Arthur Rojas MD Electronically signed By Arthur Rojas MD Dictated Date: 04/29/2023 11:07:09 AM Prelim Date: 04/29/2023 11:08:25 AM Sign Date: 04/29/2023 11:08:25 AM Ordering Provider: [facility] 04-29-2023 SARS-CoV-2 (COVID-19) RNA LACEY+probe Ql (Nph) Negative *NA* (04/29/23 10:23 AM) AO Auto Urine SS 05-30-2022 Miscellaneous Notes Told patient pathology results from colonoscopy - sessile serrated polyp, < 1 cm, I have rec'd follow up surveillance colonoscopy in 3 years Patient acknowledges above HM updated and recall letter entered. documented in this encounter [facility] 05-27-2022 Nurse Note Arrived in phase II via cart. Left lateral position. Sedated, but responds to verbal stimuli. Color normal; skin warm and dry. Respirations wnl and unlabored. Abdomen soft and with + bowel sounds in quads X 4. Patient resting comfortably. Viviana Yeboah RN documented in this encounter [facility] 05-27-2022 History and physical note UPDATED PROCEDURAL SEDATION HISTORY AND PHYSICAL EXAMINATION SERVICE DATE: 05/27/2022 SERVICE TIME: 8:54 PHYSICAL EXAM MUST BE COMPLETED ON ADMISSION PROCEDURE: colonoscopy, possible biopsies Procedure Indications: history of colon polyps The History and Physical (completed in the past 30 days) has been reviewed and the patient has been examined. The contents accurately reflect the patient's condition with the following additions or revisions since the H&P was completed. ASA Class: ASA Class:: Patient with mild systemic disease Examination indicates no changes. AIRWAY: Airway Visualization of Uvula: Yes Mouth opening greater than 2 fingerbreadths: Yes Neck Full Range of Motion: Yes LUNGS: Lungs clear to auscultation CARDIAC: Regular rhythm,Regular rate Provisional Diagnosis/Treatment Plan: colonoscopy, possible biopsies SEDATION GOAL: Moderate This H&P can be found in the Electronic Medical Record. SIGNATURE: Sera Lawton MD PATIENT NAME: Reva Taylor DATE: May 27, 2022 TIME: 8:54 AM Source Note - Sera Lawton MD - 05/27/2022 9:00 AM EST HISTORY AND PHYSICAL Reva Taylor 1955 REFERRING PHYSICIAN: Self CHIEF COMPLAINT: Consult (colonoscopy) HPI: The patient is a 66 year old female referred for endoscopy. Reva notes history of tubular adenoma from colonoscopy done in 2010. 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 She denies noting any blood in her stools. She denies abdominal pain. She denies changes in her bowel habits. She notes no colon cancer in her family. PAST MEDICAL HISTORY Diagnosis Date Benign neoplasm of rectum and anal canal Internal hemorrhoids without mention of complication Microcalcifications of the breast 10/08/2015 [facility] - PAST MEDICAL HISTORY OF OSTEOSARCOMA/ RIGHT KNEE PAST SURGICAL HISTORY Procedure Laterality Date COLONOSCOPY FLX DX W/COLLJ SPEC WHEN PFRMD 11/30/2015 Colonoscopy COLONOSCOPY W/BIOPSY SINGLE/MULTIPLE 06/11/2010 LIG/TRNSXJ FLP TUBE ABDL/VAG APPR UNI/BI PAST SURGICAL HISTORY OF RIGHT KNEE RECONSTRUCTION AFTER A TUMOR REMOVAL PAST SURGICAL HISTORY OF 04/17/2001 EXCISION OF AN ENLARGED LYMPH NODE IN THE LEFT GROIN, BENIGN REVISION OF KNEE JOINT Right 1999 femur REVISION OF KNEE JOINT Right 2000 STEREOTACTIC CORE BIOPSY Right 10/08/2015 benign Current Outpatient Medications Medication Sig CALCIUM CARBONATE/VITAMIN D3 (VITAMIN D-3 ORAL) Take by mouth. calcium carbonate (CALTRATE) 600 mg calcium (1,500 mg) tab Take one(1) tablet by mouth daily. MULTIVITAMIN TAB Take one(1) tablet daily. levothyroxine (SYNTHROID) 100 mcg tablet Take 100 mcg by mouth daily before breakfast. minoxidil (LONITEN) 10 mg tablet Take 5 mg by mouth once daily. peg 3350-Electrolytes (GOLYTELY) 236-22.74-6.74 -5.86 gram suspension Take 4,000 mL by mouth one time only for 1 dose. Refer to printed prep instructions from your provider. DOCOSAHEXANOIC ACID/EPA (FISH OIL ORAL) Take by mouth once daily. 1200mg daily (Patient not taking: Reported on 03/22/2022) estradiol (ESTRACE) 0.01 % (0.1 mg/gram) vaginal cream Use small amount at vaginal opening 2 nights per week (Patient not taking: Reported on 03/22/2022) ALLERGIES: Bactrim [Sulfamethoxazole-Trimethoprim] , Effexor [Venlafaxine Analogues], and Lexapro [Escitalopram Oxalate] PERSONAL HISTORY: Social History Tobacco Use Smoking status: Never Smokeless tobacco: Never Vaping Use Vaping Use: Never used Substance Use Topics Alcohol use: No Comment: Rarely Drug use: No FAMILY HISTORY Problem Relation Age of Onset Hypertension Mother Hypertension Father Heart Mother [place] REVIEW OF SYMPTOMS: The review of systems data was entered by the nurse and reviewed by me There are no exam notes on file for this visit. PHYSICAL EXAMINATION: General: The patient is 66 year old female, well nourished, well hydrated in no acute distress. The patient is oriented to time, place, and person. VITALS: Blood pressure 112/72, pulse 78, temperature 36.4 C (97.5 F), height 165.1 cm (5' 5 ), weight 59.8 kg (131 lb 12.8 oz), SpO2 99 %. Body mass index is 21.93 kg/m . Head: Normal cephalic, atraumatic Eyes: pupils are equally round, sclera are clear/anicteric Neck is supple with no tracheal deviation Respiratory: Normal respiratory excursion and pattern. Abdominal exam: benign Extremities: no clubbing, cyanosis or edema. Neuro: non focal Psych: normal mood IMPRESSION: history of colon polyps PLAN: I have discussed the above with the patient. I have offered colonoscopy , possible biopsies I have explained the procedure to the patient. I have counseled the patient as to the risks of the procedure, including but not limited to: infection, bleeding, injury to any intrabdominal organs such as liver/spleen, perforation of the GI tract, inability to complete the procedure, complications of anesthesia, etc. - the patient understands. The patient wishes to proceed. I have answered all questions to the patient s satisfaction and the patient has no further questions. Diagnoses: (Z86.010) History of colonic polyps (primary encounter diagnosis) HISTORY AND PHYSICAL Reva Taylor 1955 REFERRING PHYSICIAN: Self CHIEF COMPLAINT: Consult (colonoscopy) HPI: The patient is a 66 year old female referred for endoscopy. Reva notes history of tubular adenoma from colonoscopy done in 2010. 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 She denies noting any blood in her stools. She denies abdominal pain. She denies changes in her bowel habits. She notes no colon cancer in her family. PAST MEDICAL HISTORY Diagnosis Date Benign neoplasm of rectum and anal canal Internal hemorrhoids without mention of complication Microcalcifications of the breast 10/08/2015 [facility] - PAST MEDICAL HISTORY OF OSTEOSARCOMA/ RIGHT KNEE PAST SURGICAL HISTORY Procedure Laterality Date COLONOSCOPY FLX DX W/COLLJ SPEC WHEN PFRMD 11/30/2015 Colonoscopy COLONOSCOPY W/BIOPSY SINGLE/MULTIPLE 06/11/2010 LIG/TRNSXJ FLP TUBE ABDL/VAG APPR UNI/BI PAST SURGICAL HISTORY OF RIGHT KNEE RECONSTRUCTION AFTER A TUMOR REMOVAL PAST SURGICAL HISTORY OF 04/17/2001 EXCISION OF AN ENLARGED LYMPH NODE IN THE LEFT GROIN, BENIGN REVISION OF KNEE JOINT Right 1999 femur REVISION OF KNEE JOINT Right 2000 STEREOTACTIC CORE BIOPSY Right 10/08/2015 benign Current Outpatient Medications Medication Sig CALCIUM CARBONATE/VITAMIN D3 (VITAMIN D-3 ORAL) Take by mouth. calcium carbonate (CALTRATE) 600 mg calcium (1,500 mg) tab Take one(1) tablet by mouth daily. MULTIVITAMIN TAB Take one(1) tablet daily. levothyroxine (SYNTHROID) 100 mcg tablet Take 100 mcg by mouth daily before breakfast. minoxidil (LONITEN) 10 mg tablet Take 5 mg by mouth once daily. peg 3350-Electrolytes (GOLYTELY) 236-22.74-6.74 -5.86 gram suspension Take 4,000 mL by mouth one time only for 1 dose. Refer to printed prep instructions from your provider. DOCOSAHEXANOIC ACID/EPA (FISH OIL ORAL) Take by mouth once daily. 1200mg daily (Patient not taking: Reported on 03/22/2022) estradiol (ESTRACE) 0.01 % (0.1 mg/gram) vaginal cream Use small amount at vaginal opening 2 nights per week (Patient not taking: Reported on 03/22/2022) ALLERGIES: Bactrim [Sulfamethoxazole-Trimethoprim] , Effexor [Venlafaxine Analogues], and Lexapro [Escitalopram Oxalate] PERSONAL HISTORY: Social History Tobacco Use Smoking status: Never Smokeless tobacco: Never Vaping Use Vaping Use: Never used Substance Use Topics Alcohol use: No Comment: Rarely Drug use: No FAMILY HISTORY Problem Relation Age of Onset Hypertension Mother Hypertension Father Heart Mother [place] REVIEW OF SYMPTOMS: The review of systems data was entered by the nurse and reviewed by me There are no exam notes on file for this visit. PHYSICAL EXAMINATION: General: The patient is 66 year old female, well nourished, well hydrated in no acute distress. The patient is oriented to time, place, and person. VITALS: Blood pressure 112/72, pulse 78, temperature 36.4 C (97.5 F), height 165.1 cm (5' 5 ), weight 59.8 kg (131 lb 12.8 oz), SpO2 99 %. Body mass index is 21.93 kg/m . Head: Normal cephalic, atraumatic Eyes: pupils are equally round, sclera are clear/anicteric Neck is supple with no tracheal deviation Respiratory: Normal respiratory excursion and pattern. Abdominal exam: benign Extremities: no clubbing, cyanosis or edema. Neuro: non focal Psych: normal mood IMPRESSION: history of colon polyps PLAN: I have discussed the above with the patient. I have offered colonoscopy , possible biopsies I have explained the procedure to the patient. I have counseled the patient as to the risks of the procedure, including but not limited to: infection, bleeding, injury to any intrabdominal organs such as liver/spleen, perforation of the GI tract, inability to complete the procedure, complications of anesthesia, etc. - the patient understands. The patient wishes to proceed. I have answered all questions to the patient s satisfaction and the patient has no further questions. Diagnoses: (Z86.010) History of colonic polyps (primary encounter diagnosis) documented in this encounter [facility] 05-26-2022 Miscellaneous Notes [facility] for Reva regarding Dr. Lawton's message. Krystin Chen RN Images from the original note were not included. Sera Lawton MD You 3 hours ago (9:37 AM) Yes, she is OK to proceed Pt called in states had a dental procedure this week where that had to put tissue grafts in her gums. Pt had local anesthetic and has not had any complications with bleeding or infection. Pt was just making sure she was still ok to proceed with colonoscopy tomorrow. Please advise documented in this encounter [facility] 05-16-2022 Miscellaneous Notes Patient called to notify Dr. Lawton that she has been prescribed Amoxicillin by [facility] to take prior to colonoscopy. Gissell Leigh LPN documented in this encounter [facility] 03-22-2022 Note HNO ID: [id number] Author: Sera Lawton MD Service: ? Author Type: Physician Type: Progress Notes Filed: 03/26/2022 12:53 PM Note Text: HISTORY AND PHYSICAL Reva Taylor 1955 REFERRING PHYSICIAN: Self CHIEF COMPLAINT: Consult (colonoscopy) HPI: The patient is a 66 year old female referred for endoscopy. Reva notes history of tubular adenoma from colonoscopy done in 2010. 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 She denies noting any blood in her stools. She denies abdominal pain. She denies changes in her bowel habits. She notes no colon cancer in her family. PAST MEDICAL HISTORY Diagnosis Date Benign neoplasm of rectum and anal canal Internal hemorrhoids without mention of complication Microcalcifications of the breast 10/08/2015 [facility] - PAST MEDICAL HISTORY OF OSTEOSARCOMA/ RIGHT KNEE PAST SURGICAL HISTORY Procedure Laterality Date COLONOSCOPY FLX DX W/COLLJ SPEC WHEN PFRMD 11/30/2015 Colonoscopy COLONOSCOPY W/BIOPSY SINGLE/MULTIPLE 06/11/2010 LIG/TRNSXJ FLP TUBE ABDL/VAG APPR UNI/BI PAST SURGICAL HISTORY OF RIGHT KNEE RECONSTRUCTION AFTER A TUMOR REMOVAL PAST SURGICAL HISTORY OF 04/17/2001 EXCISION OF AN ENLARGED LYMPH NODE IN THE LEFT GROIN, BENIGN REVISION OF KNEE JOINT Right 1999 femur REVISION OF KNEE JOINT Right 2000 STEREOTACTIC CORE BIOPSY Right 10/08/2015 benign Current Outpatient Medications Medication Sig CALCIUM CARBONATE/VITAMIN D3 (VITAMIN D-3 ORAL) Take by mouth. calcium carbonate (CALTRATE) 600 mg calcium (1,500 mg) tab Take one(1) tablet by mouth daily. MULTIVITAMIN TAB Take one(1) tablet daily. levothyroxine (SYNTHROID) 100 mcg tablet Take 100 mcg by mouth daily before breakfast. minoxidil (LONITEN) 10 mg tablet Take 5 mg by mouth once daily. peg 3350-Electrolytes (GOLYTELY) 236-22.74-6.74 -5.86 gram suspension Take 4,000 mL by mouth one time only for 1 dose. Refer to printed prep instructions from your provider. DOCOSAHEXANOIC ACID/EPA (FISH OIL ORAL) Take by mouth once daily. 1200mg daily (Patient not taking: Reported on 03/22/2022) estradiol (ESTRACE) 0.01 % (0.1 mg/gram) vaginal cream Use small amount at vaginal opening 2 nights per week (Patient not taking: Reported on 03/22/2022) ALLERGIES: Bactrim [Sulfamethoxazole-Trimethoprim] , Effexor [Venlafaxine Analogues], and Lexapro [Escitalopram Oxalate] PERSONAL HISTORY: Social History Tobacco Use Smoking status: Never Smokeless tobacco: Never Vaping Use Vaping Use: Never used Substance Use Topics Alcohol use: No Comment: Rarely Drug use: No FAMILY HISTORY Problem Relation Age of Onset Hypertension Mother Hypertension Father Heart Mother [place] REVIEW OF SYMPTOMS: The review of systems data was entered by the nurse and reviewed by me There are no exam notes on file for this visit. PHYSICAL EXAMINATION: General: The patient is 66 year old female, well nourished, well hydrated in no acute distress. The patient is oriented to time, place, and person. VITALS: Blood pressure 112/72, pulse 78, temperature 36.4 ?C (97.5 ?F), height 165.1 cm (5' 5 ), weight 59.8 kg (131 lb 12.8 oz), SpO2 99 %. Body mass index is 21.93 kg/m?. Head: Normal cephalic, atraumatic Eyes: pupils are equally round, sclera are clear/anicteric Neck is supple with no tracheal deviation Respiratory: Normal respiratory excursion and pattern. Abdominal exam: benign Extremities: no clubbing, cyanosis or edema. Neuro: non focal Psych: normal mood Assessment IMPRESSION: history of colon polyps PLAN: I have discussed the above with the patient. I have offered colonoscopy , possible biopsies I have explained the procedure to the patient. I have counseled the patient as to the risks of the procedure, including but not limited to: infection, bleeding, injury to any intrabdominal organs such as liver/spleen, perforation of the GI tract, inability to complete the procedure, complications of anesthesia, etc. - the patient understands. The patient was offered a surgery/procedure at a [facility] facility. The provider and patient have discussed in detail the risk of exposure to and/or potential harm posed by the COVID-19 virus with having a surgery/procedure at this time versus the risk of delaying the surgery/procedure. It is not possible to know either the risk of delaying the surgery or procedure or chance of getting an infection with perfect accuracy, but a joint decision was made between the patient and the provider to proceed at this time with the scheduled surgery/procedure. The patient wishes to proceed. I have answered all questions to the patient?s satisfaction and the patient has no further questions. Diagnoses: (Z86.010) History of colonic polyps (primary encounter diagnosis) I have confirmed and edited as necessary, the PFSH and ROS obtained by others. Return (more content not included)... [facility] 03-22-2022 History of Presen t illness Narrative HISTORY AND PHYSICAL Reva Taylor 1955 REFERRING PHYSICIAN: Self CHIEF COMPLAINT: Consult (colonoscopy) HPI: The patient is a 66 year old female referred for endoscopy. Reva notes history of tubular adenoma from colonoscopy done in 2010. 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 She denies noting any blood in her stools. She denies abdominal pain. She denies changes in her bowel habits. She notes no colon cancer in her family. PAST MEDICAL HISTORY Diagnosis Date Benign neoplasm of rectum and anal canal Internal hemorrhoids without mention of complication Microcalcifications of the breast 10/08/2015 PMH - PAST MEDICAL HISTORY OF OSTEOSARCOMA/ RIGHT KNEE PAST SURGICAL HISTORY Procedure Laterality Date COLONOSCOPY FLX DX W/COLLJ SPEC WHEN PFRMD 11/30/2015 Colonoscopy COLONOSCOPY W/BIOPSY SINGLE/MULTIPLE 06/11/2010 LIG/TRNSXJ FLP TUBE ABDL/VAG APPR UNI/BI PAST SURGICAL HISTORY OF RIGHT KNEE RECONSTRUCTION AFTER A TUMOR REMOVAL PAST SURGICAL HISTORY OF 04/17/2001 EXCISION OF AN ENLARGED LYMPH NODE IN THE LEFT GROIN, BENIGN REVISION OF KNEE JOINT Right 1999 femur REVISION OF KNEE JOINT Right 2000 STEREOTACTIC CORE BIOPSY Right 10/08/2015 benign Current Outpatient Medications Medication Sig CALCIUM CARBONATE/VITAMIN D3 (VITAMIN D-3 ORAL) Take by mouth. calcium carbonate (CALTRATE) 600 mg calcium (1,500 mg) tab Take one(1) tablet by mouth daily. MULTIVITAMIN TAB Take one(1) tablet daily. levothyroxine (SYNTHROID) 100 mcg tablet Take 100 mcg by mouth daily before breakfast. minoxidil (LONITEN) 10 mg tablet Take 5 mg by mouth once daily. peg 3350-Electrolytes (GOLYTELY) 236-22.74-6.74 -5.86 gram suspension Take 4,000 mL by mouth one time only for 1 dose. Refer to printed prep instructions from your provider. DOCOSAHEXANOIC ACID/EPA (FISH OIL ORAL) Take by mouth once daily. 1200mg daily (Patient not taking: Reported on 03/22/2022) estradiol (ESTRACE) 0.01 % (0.1 mg/gram) vaginal cream Use small amount at vaginal opening 2 nights per week (Patient not taking: Reported on 03/22/2022) ALLERGIES: Bactrim [Sulfamethoxazole-Trimethoprim] , Effexor [Venlafaxine Analogues], and Lexapro [Escitalopram Oxalate] PERSONAL HISTORY: Social History Tobacco Use Smoking status: Never Smokeless tobacco: Never Vaping Use Vaping Use: Never used Substance Use Topics Alcohol use: No Comment: Rarely Drug use: No FAMILY HISTORY Problem Relation Age of Onset Hypertension Mother Hypertension Father Heart Mother [place] REVIEW OF SYMPTOMS: The review of systems data was entered by the nurse and reviewed by me There are no exam notes on file for this visit. PHYSICAL EXAMINATION: General: The patient is 66 year old female, well nourished, well hydrated in no acute distress. The patient is oriented to time, place, and person. VITALS: Blood pressure 112/72, pulse 78, temperature 36.4 C (97.5 F), height 165.1 cm (5' 5 ), weight 59.8 kg (131 lb 12.8 oz), SpO2 99 %. Body mass index is 21.93 kg/m . Head: Normal cephalic, atraumatic Eyes: pupils are equally round, sclera are clear/anicteric Neck is supple with no tracheal deviation Respiratory: Normal respiratory excursion and pattern. Abdominal exam: benign Extremities: no clubbing, cyanosis or edema. Neuro: non focal Psych: normal mood Assessment IMPRESSION: history of colon polyps PLAN: I have discussed the above with the patient. I have offered colonoscopy , possible biopsies I have explained the procedure to the patient. I have counseled the patient as to the risks of the procedure, including but not limited to: infection, bleeding, injury to any intrabdominal organs such as liver/spleen, perforation of the GI tract, inability to complete the procedure, complications of anesthesia, etc. - the patient understands. The patient was offered a surgery/procedure at a [facility] facility. The provider and patient have discussed in detail the risk of exposure to and/or potential harm posed by the COVID-19 virus with having a surgery/procedure at this time versus the risk of delaying the surgery/procedure. It is not possible to know either the risk of delaying the surgery or procedure or chance of getting an infection with perfect accuracy, but a joint decision was made between the patient and the provider to proceed at this time with the scheduled surgery/procedure. The patient wishes to proceed. I have answered all questions to the patient s satisfaction and the patient has no further questions. Diagnoses: (Z86.010) History of colonic polyps (primary encounter diagnosis) I have confirmed and edited as necessary, the PFSH and ROS obtained by others. Return to Clinic: The patient will be scheduled at [facility] for colonoscopy. Medical Decision Making: Risk: Moderate: Moderate risk from testing/treatment Medical Decision Making Level: 2 - Straightforward Sera Lawton MD REVIEW OF SYSTEMS: General: The patient denies fatigue, denies weight loss, denies weight gain, NOTES feeling hot, and denies feelings of cold. Eyes: The patient denies glaucoma, denies eye injury/surgery, wears glasses or contacts. Ear/Nose/Throat: The patient denies allergies, denies hayfever, denies ear infections, and denies bloody noses. Cardiovascular: The patient denies chest pain, denies heart disease, denies high blood pressure,denies cardiac stent, denies prior heart attack, denies irregular heart beat, denies high cholesterol, denies poor circulation, denies heart failure, other cardiac issues, denies claudication, denies cold feet, denies peripheral arterial stent. Respiratory: The patient denies tuberculosis, denies pneumonia, denies frequent cough, denies pulmonary embolism, denies shortness of breath, and denies coughing up blood. Gastrointestinal: The patient denies difficulty swallowing, denies acid reflux, denies ulcers, denies vomiting, denies jaundice/hepatitis, denies gallbladder problems, denies black or tarry stools, notes hemorrhoids, denies bleeding from rectum, denies diverticulitis, denies constipation, denies diarrhea, denies loss of stool control, and denies hernias. Kidney/Bladder: The patient denies kidney stones, denies urine infections, and denies bloody urine. Skin: The patient denies a history of skin cancer, denies bleeding/changing moles, and denies a history of skin rash. Neurologic: The patient denies a history of epilepsy/convulsions, NOTES headaches, denies head/spinal injuries, and denies stroke/TIA. Psychiatric: The patient denies psychiatric medications, denies depression, and denies voices, denies substance abuse. Endocrine: The patient NOTES thyroid disorders, denies diabetes, and denies hormonal problems. Hematologic: The patient denies a history of bruising, denies bleeding, and denies anemia, denies blood clots. Infections: The patient denies a history of measles and mumps, denies rheumatic fever, and denies sexually transmitted diseases. Musculoskeletal: The patient denies back pain/injury, denies back problems, denies sciatica, NOTES knee/foot trouble, denies arthritis, or denies gout. When was patient's last Mammogram screening? 2020 Last Colonoscopy: 2015 Gissell Leigh LPN documented in this encounter [facility] 03-22-2022 Note HNO ID: [id number] Author: Gissell Leigh LPN Service: ? Author Type: LICENSED NURSE Type: Progress Notes Filed: 03/26/2022 12:53 PM Note Text: REVIEW OF SYSTEMS: General: The patient denies fatigue, denies weight loss, denies weight gain, NOTES feeling hot, and denies feelings of cold. Eyes: The patient denies glaucoma, denies eye injury/surgery, wears glasses or contacts. Ear/Nose/Throat: The patient denies allergies, denies hayfever, denies ear infections, and denies bloody noses. Cardiovascular: The patient denies chest pain, denies heart disease, denies high blood pressure,denies cardiac stent, denies prior heart attack, denies irregular heart beat, denies high cholesterol, denies poor circulation, denies heart failure, other cardiac issues, denies claudication, denies cold feet, denies peripheral arterial stent. Respiratory: The patient denies tuberculosis, denies pneumonia, denies frequent cough, denies pulmonary embolism, denies shortness of breath, and denies coughing up blood. Gastrointestinal: The patient denies difficulty swallowing, denies acid reflux, denies ulcers, denies vomiting, denies jaundice/hepatitis, denies gallbladder problems, denies black or tarry stools, notes hemorrhoids, denies bleeding from rectum, denies diverticulitis, denies constipation, denies diarrhea, denies loss of stool control, and denies hernias. Kidney/Bladder: The patient denies kidney stones, denies urine infections, and denies bloody urine. Skin: The patient denies a history of skin cancer, denies bleeding/changing moles, and denies a history of skin rash. Neurologic: The patient denies a history of epilepsy/convulsions, NOTES headaches, denies head/spinal injuries, and denies stroke/TIA. Psychiatric: The patient denies psychiatric medications, denies depression, and denies voices, denies substance abuse. Endocrine: The patient NOTES thyroid disorders, denies diabetes, and denies hormonal problems. Hematologic: The patient denies a history of bruising, denies bleeding, and denies anemia, denies blood clots. Infections: The patient denies a history of measles and mumps, denies rheumatic fever, and denies sexually transmitted diseases. Musculoskeletal: The patient denies back pain/injury, denies back problems, denies sciatica, NOTES knee/foot trouble, denies arthritis, or denies gout. When was patient's last Mammogram screening? 2020 Last Colonoscopy: 2015 Gissell Leigh LPN [facility] 03-22-2022 Instructions Sera Lawton MD - 03/22/2022 9:46 AM EST Images from the original note were not included. Bowel Preparation Instructions for: Golytely, Nulytely, Trilyte or Colyte (polyethylene glycol 3350 and electrolytes) IF YOU DO NOT FOLLOW THESE DIRECTIONS, YOUR COLONOSCOPY WILL BE CANCELLED. Sow Instructions: Your bowel must be empty so that your doctor can clearly view your colon. Follow all of the instructions in this handout EXACTLY as they are written. Do NOT eat any solid food the ENTIRE day before your colonoscopy. Drink only clear liquids. Buy your bowel preparation at least 5 days before your colonoscopy. TRANSPORTATION on the Day of Your Exam A responsible person MUST be present with you at Check In prior to your colonoscopy and REMAIN in the endoscopy area until you are discharged. You are NOT ALLOWED to drive, take a taxi or bus, or leave the Endoscopy Center ALONE. If you do not have a responsible show horse driver (family member or friend) with you to take you home, your exam cannot be done with sedation and will be cancelled. Please bring a list of all of your current medications, including any Over-the Counter medications with you. Medications If you take insulin, diabetic medications or blood thinners such as Coumadin (warfarin), Plavix (clopidogrel), Ticlid (ticlopidine hydrochloride), Agrylin (anagrelide), Xarelto (Rivaroxaban), Pradaxa (Dabigatran), Eliquis (Apixaban), and Effient (Prasugrel). You MUST call the doctors who orders those medicines for instructions on altering the dosage before your colonoscopy. All other medications should be taken the day of the exam with a sip of water including ASPIRIN. Five (5) Days Before Your Colonoscopy Do NOT take medicines that stop diarrhea - such as Imodium, Kaopectate, or Pepto Bismol. Do NOT take fiber supplements - such as Metamucil, Citrucel, or Perdiem. Do NOT take products that contain iron - such as multi-vitamins (the label lists what is in the products). Do NOT take Vitamin E. Buy the prescription bowel preparation solution at your local pharmacy or drugstore pharmacy. 03/2019 Bowel Preparation Instructions for: Golytely, Nulytely, Trilyte or Colyte (polyethylene glycol 3350 and electrolytes) Three (3) Days Before Your Colonoscopy Do NOT eat high-fiber foods - such as popcorn, beans, seeds (flax, sunflower, quinoa), multigrain bread, nuts, salad/vegetables, or fresh and dried fruit. One (1) Day Before Your Colonoscopy Only drink clear liquids the ENTIRE DAY before your colonoscopy. Do NOT eat any solid foods. Drink at least 8 ounces of clear liquids every hour after waking up. The clear liquids you can drink include: Clear Liquid (NO RED LIQUIDS) DO NOT DRINK Gatorade, Pedialyte or Powerade Clear broth or bouillon Coffee or tea (no milk or non-dairy creamer) Carbonated and non-carbonated soft drinks Romain-Aid or other fruit flavored drinks Strained fruit juices (no pulp) Jell-O, popsicles, hard candy Water Alcohol Milk or non-dairy creamers Noodles or vegetables in soup Juice with pulp Liquid you cannot see through Do not use tobacco/vaping products The bowel preparation solution will be consumed in two parts. Mix the solution the evening before your colonoscopy and refrigerate before drinking. You may add the flavor pack that came with the bowel preparation. Do NOT add ice, sugar or any other flavorings to the solution. Part 1 At 6:00 PM - Evening before your colonoscopy Drink an 8-oz glass of bowel preparation every 10 minutes for a total of 8 glasses. You may continue to drink clear liquids until midnight. Part 2 On the day of your colonoscopy you may drink clear liquids up to (three) 3 hours before your procedure. 4 1/2 hours before your colonoscopy Drink an 8-oz glass of bowel preparation every 10 minutes for a total of 8 glasses. Fifteen (15) minutes later, drink an 8-oz glass of clear liquids every 15 minutes for a total of 2 glasses. You may continue to drink clear liquids up to (three) 3 hours before your exam. 2 03/2019 documented in this encounter [facility] documented in this [facility] Diagnosis Special screening for malignant neoplasms, colon- Primary History of colonic polyps Personal history of colonic polyps documented in this encounter [facility] course Narrative No data available for this section [facility] Reason for referral (narrative)* Outpatient Procedure (Routine) - Authorized Specialty Diagnoses / Procedures Referred By Jake knott Referred To Contact [facility] Diagnoses History of colonic polyps Procedures COLONOSCOPY SCREENING COLONOSCOPY FLX DX W/COLLJ SPEC WHEN Sera Davis MD [address] [place] [address] [place] [address] Referral ID Status Reason Start Date Expiration Date Visits Requested Visits Authorized [id number] Authorized Auto-Generat ed Referral 03/22/2022 03/22/2023 1 1 [facility] for referral (narrative)* Outpatient Procedure (Routine) - Closed Specialty Diagnoses / Procedures Referred By Jake knott Referred To Contact [facility] Diagnoses History of colonic polyps Procedures COLONOSCOPY SCREENING COLONOSCOPY FLX DX W/COLLJ SPEC WHEN Sera Davis MD [address] [place] [address] [facility] Disease [address] [address] Referral ID Status Reason Start Date Expiration Date V isits Requested Visits Authorized [id number] Closed Auto-Generate d Referral 03/22/2022 03/22/2023 1 1 [facility] N[facility]* Outpatient Procedure (Routine) - Closed Specialty Diagnoses / Procedures Referred By Contac t Referred To Contact [facility] Diagnoses History of colonic polyps Procedures COLONOSCOPY SCREENING COLONOSCOPY FLX DX W/COLLJ SPEC WHEN PFRMD Sera Lawton MD [address] [facility] [place] [address] [facility] [place] [address] [place] [address] Referral ID Status Reason Start Date Expiration Date V isits Requested Visits Authorized [id number] Closed Auto-Generate d Referral 03/22/2022 03/22/2023 1 1 [facility] Summary Purpose Family History No Family History Records Found No data available for this section No Family History Records Found Advance Directives No Advanced Directives Records FoundNo Advanced Directives Records Found Medications Administered Section Inactive Administered Medications - up to 3 most recent administrations Medication Order MAR Action Action Date Dose Rate Site diphenhydrAMINE 12.5-50 mg injection (BENADRYL) 12.5-50 mg, INTRAVENOUS, DIRECTED, Starting on Mon05/27/22 at 0930, Until Mon05/27/22 at 1329, DOSING DIRECTED BY PHYSICIAN FOR PROCEDURAL SEDATION ONLY, Intraprocedure Given 05/27/2022 9:02 AM EST 50 mg fentaNYL 50 mcg/mL 25-100 mcg injection (SUBLIMAZE) 25-100 mcg, INTRAVENOUS, DIRECTED, Starting on Mon05/27/22 at 0930, Until Mon05/27/22 at 1329, DOSING DIRECTED BY PHYSICIAN FOR PROCEDURAL SEDATION ONLY, Intraprocedure Given 05/27/2022 9:24 AM EST 25 mcg Additional Source Comments Source Comments (unrecognize d section and content) In the event this informatio n is protected by the Federal Confidentiality of Alcohol and Drug Abuse Patient Records regulations: The Federal rules restrict any use of the information to criminally investigate or prosecute any alcohol or drug abuse patient.[facility] the event this information is protected by the Federal Confidentiality of Alcohol and Drug Abuse Patient Records regulations: The Federal rules restrict any use of the information to criminally investigate or prosecute any alcohol or drug abuse patient.[facility] the event this information is protected by the Federal Confidentiality of Alcohol and Drug Abuse Patient Records regulations: The Federal rules restrict any use of the information to criminally investigate or prosecute any alcohol or drug abuse patient.[facility] the event this information is protected by the Federal Confidentiality of Alcohol and Drug Abuse Patient Records regulations: The Federal rules restrict any use of the information to criminally investigate or prosecute any alcohol or drug abuse patient.[facility] the event this information is protected by the Federal Confidentiality of Alcohol and Drug Abuse Patient Records regulations: The Federal rules restrict any use of the information to criminally investigate or prosecute any alcohol or drug abuse patient.[facility] Reason for Visit (unrecogniz ed section and content) Reason Comments Patient Update Regarding antibiotic d/t ortho Reason Comments Patient Update Reason Comments Results Care Teams (unrecognized sec tion and content) Book Illustrator Relationship Specialty Start Date End Date Pcp, No PCP - General 10/30/21 05/17/22 Brandt Ramos MD [address] [place] [address] [id number] 06/30/04 Book Illustrator Relationship Specialty Start Date End Date Brandt Ramos MD [address] [place] [id number] 06/30/04 Book Illustrator Relationship Specialty Start Date End Date Brandt Ramos MD [address] [place] [address] [id number] 06/30/04 Book Illustrator Relationship Specialty Start Date End Date Brandt Ramos MD [address] [place] [address] [id number] 06/30/04 INFORMATION SOURCE (unrecogn ized section and content) DATE CREATED AUTHOR AUTHOR'S ORGANIZ ATION 05/07/2023 [facility] ([place]) FOR RECORDS PERTAINING TO PATIENTS WHO ARE OR HAVE BEEN ENROLLED IN A CHEMICAL DEPENDENCY/SUBSTANCEABUSE PROGRAM, SOME INFORMATION MAY BE OMITTED. This clinical summary was aggregated from multiple sources. Caution should be exercised in using it in the provision of clinical care. This summary normalizes information from multiple sources, and as a consequence, information in this document may materially change the coding, format and clinical context of patient data. In addition, data may be omitted in some cases. CLINICAL DECISIONS SHOULD BE BASED ON THE PRIMARY CLINICAL RECORDS. [facility]. provides no warranty or guarantee of the accuracy or completeness of information in this document.
[2023-05-10 17:58] LABS: Vitamin B12 1236 pg/mL (211-911)
[2023-05-10 18:00] LABS: Absolute Lymphocyte Count 1.32 X10^3/uL (0.83-4.51); Basophil# 0.04 X10^3/uL; Basophil% 0.5 % (0-1); Eosinophil# 0.67 X10^3/uL; Eosinophils% 8.8 % (0-5); Hematocrit 33.5 % (37-47); Hemoglobin 10.4 g/dL (12.0-15.0); Lymphocyte # 1.32 X10^3/ul (0.83-4.51); Lymphocyte % 17.3 % (19-41); Mean Corpuscular Volume 83.8 fL (81-99); Mean Platelet Vol. 8.8 fl (6.2-12.0); Monocyte% 7.9 % (0-10); NRBC Flagged by Analyzer 0 % (0-5); Neutrophil # 4.95 X10^3/uL (2.7-7.7); Neutrophil % 65.1 % (47-70); Platelet Count 574 K/mm3 (150-450); RBC Distribution Width CV 14.2 % (11.6-14.6); RBC Distribution Width SD 43.5 fl (35.1-43.9); White Blood Count 7.6 K/mm3 (4.4-11.0)
[2023-05-10 18:05] LABS: Ferritin 84 ng/mL (8-252); Iron 30 ug/dL (50-170); Iron Binding Capacity,Total 274 ug/dL (250-450)
== END | disposition home or self-care (01) ==
LOC: MFPLAB 15:59
PROVIDERS: PCP Family Medicine; Visit Provider Nurse Practitioner Family
DX: D64.9 Anemia, unspecified (principal)
CPT/HCPCS: 36415; 82607; 82728; 83540; 83550; 85025

== ENCOUNTER → 2023-05-15 | Outpatient (CLI) | payer OTHER, SELFPAY ==
--- NOTE | 2023-05-15 06:17 | ECHOD_ITS ---
Reason For Study: PRE-OP, ABNORMAL EKG Procedure This was a 2D Doppler, Color Flow transthoracic echocardiogram. Exam performed in department. Left Ventricle Normal LV size. Apical false tendon noted. Left ventricular systolic function is normal. The estimated ejection fraction is 55 %. Normal diastololic function. No regional wall motion abnormalities noted. Right Ventricle Normal RV size. Normal systolic function. Atria The left and right atria are normal. Mitral Valve Mild diffuse mitral valve thickening. There is no mitral valve stenosis. Mild (1+) mitral valve insufficiency. Tricuspid Valve Normal tricuspid valve. Trivial tricuspid valve insufficiency. Right ventricular systolic pressure estimated to be 29 mmHg. Aortic Valve Trisinus/trileaflet aortic valve. Mild focal aortic valve calcification. Pulmonic Valve Normal pulmonic valve. Mild (1+) pulmonic valve insufficiency. Great Vessels Normal aortic root. Pericardium/Pleural Trivial pericardial effusion. There are no echocardiographic indications of cardiac tamponade. MMode/2D Measurements & Calculations LVIDd: 4.4 cm IVSd: 0.92 cm Ao root diam: 3.4 cm LVIDs: 2.7 cm LVPWd: 0.99 cm RVDd: 3.0 cm FS: 37.9 % LAV(MOD-bp): 32.4 ml LVAd ap4: 30.1 cm2 SV(MOD-sp4): 53.2 ml LAV(MOD-bp) Indexed: 20.0 ml/m2 LVLd ap4: 7.7 cm LAV(MOD-sp2): 34.1 ml EDV(MOD-sp4): 97.2 ml LAV(MOD-sp4): 30.8 ml EDV(sp4-el): 99.8 ml LVAs ap4: 18.2 cm2 LVLs ap4: 6.3 cm ESV(MOD-sp4): 44.0 ml ESV(sp4-el): 44.8 ml EF(MOD-sp4): 54.7 % EF(sp4-el): 55.1 % SV(sp4-el): 54.9 ml LA A4 area: 14.0 cm2 LA dimension(2D): 3.1 cm RA A4 area: 12.7 cm2 TAPSE: 2.5 cm Time Measurements MV dec time: 0.27 sec Doppler Measurements & Calculations MV E max jose maria: 93.2 cm/sec Lat Peak E' Jose Maria: 8.2 cm/sec Med Peak E' Jose Maria: 6.4 cm/sec MV A max jose maria: 99.5 cm/sec E/E' lat: 11.3 E/E' med: 14.5 MV E/A: 0.94 Ao V2 max: 162.6 cm/sec LV V1 max: 119.6 cm/sec PA V2 max: 111.7 cm/sec Ao max P.6 mmHg LV V1 max P.7 mmHg TR max jose maria: 255.9 cm/sec TR max P.2 mmHg ECHO/Echo Complete Interpretation Summary The estimated ejection fraction is 55 %. Mild diffuse mitral valve thickening. Mild (1+) mitral valve insufficiency. Mild focal aortic valve calcification. There is no comparison study available. Ordering Physician: Temitope Burk Referring Physician: ANTOINE JEREZ Performed By: Jazmine Scott RDCS
--- OUTSIDE RECORDS SUMMARY | 2023-05-15 06:30 | XMS RPT_ITS | CCD ---
Author Name Unknown Address [address] [place] [address] Organization [facility] Care Team Providers Care Medical Manager Name Role Phone Unavailable Primary Care Provider UnavailBrandt Kumar MD Unavailable Pcp, No Primary Care Provider UnavailSERA Arevalo Attending Unavailable Brandt Ramos MD Unavailable ANTOINE JEREZ DO Primary Care Physician ANTOINE JEREZ DO Primary Care Unavailable BERNIE THOMAS, DR ASTRID Branch Attending [facility] Allergies Allergy Classification Reported Allergen(s) Allergy Type Date of Onset Reaction(s) Facility (6 sources) Escitalopram; Translations: [ESCITALOPRAM OXALATE] Drug Allergy [address] [facility] Work Phone: (5 sources) Sulfamethoxazole / Trimethoprim Drug Allergy 2 Other: See Comments [facility] (6 sources) venlafaxine; Translations: [VENLAFAXINE ANALOGUES] Drug Allergy [address] [facility] Work Phone: Medications Current Medications Medication Drug [...] Non-Invasive 75 mm[Hg] DR ASTRID GIBBS MD [facility] 04-29-2023 13:52-0500 Heart rate 91 /min DR ASTRID GIBBS MD [facility] 04-29-2023 13:52-0500 Respiratory rate 16 /min DR ASTRID GIBBS MD [facility] 04-29-2023 13:52-0500 Systolic Blood Pressure Non-Invasive 133 mm[Hg] DR ASTRID GIBBS MD [facility] 04-29-2023 13:00-0500 Diastolic Blood Pressure Non-Invasive 71 mm[Hg] DR ATSRID GIBBS MD [facility] 04-29-2023 13:00-0500 Heart rate 90 /min DR ASTRID GIBBS MD [facility] 04-29-2023 13:00-0500 Systolic Blood Pressure Non-Invasive 126 mm[Hg] DR ASTRID GIBBS MD [facility] 04-29-2023 12:02-0500 Diastolic Blood Pressure Non-Invasive 63 mm[Hg] DR ASTRID GIBBS MD [facility] 04-29-2023 12:02-0500 Heart rate 83 /min DR ASTRID GIBBS MD [facility] 04-29-2023 12:02-0500 Respiratory rate 15 /min DR ASTRID GIBBS MD [facility] 04-29-2023 12:02-0500 Systolic Blood Pressure Non-Invasive 107 mm[Hg] DR ASTRID GIBBS MD [facility] 04-29-2023 10:09-0500 Body height 167.[address] ASTRID GIBBS MD [facility] 04-29-2023 10:09-0500 Body temperature 98.06 [degF] DR ASTRID GIBBS MD [facility] 04-29-2023 10:09-0500 Body weight 55.[address] ASTRID GIBBS MD [facility] 04-29-2023 10:09-0500 Heart rate 111 /min DR ASTRID GIBBS MD [facility] 05-27-2022 10:07-0500 Heart rate 65 /min Sera Lawton MD Work Phone: [facility] 05-27-2022 10:07-0500 Respiratory rate 16 /min Sera Lawton MD Work Phone: [facility] 05-27-2022 10:07-0500 SaO2% (BldA) [Mass fraction] 98 % Sera Lawton MD Work Phone: [facility] 05-27-2022 09:57-0500 Diastolic blood pressure 70 mm[Hg] Sera Lawton MD Work Phone: [facility] 05-27-2022 09:57-0500 Systolic blood pressure 136 mm[Hg] Sera Lawton MD Work Phone: [facility] 05-27-2022 08:47-0500 Body temperature 99 [degF] Sera Lawton MD Work Phone: [facility] 03-22-2022 09:35-0500 Body height 165.1 cm Sear Lawton MD Work Phone: [facility] 03-22-2022 09:35-0500 Body temperature 97.5 [degF] Sera Lawton MD Work Phone: [facility] 03-22-2022 09:35-0500 Body weight 59.78 kg Sera Lawton MD Work Phone: [facility] 03-22-2022 09:35-0500 Diastolic blood pressure 72 mm[Hg] Sera Lawton MD Work Phone: [facility] 03-22-2022 09:35-0500 Heart rate 78 /min Sera Lawton MD Work Phone: [facility] 03-22-2022 09:35-0500 SaO2% (BldA) [Mass fraction] 99 % Sera Lawton MD Work Phone: [facility] 03-22-2022 09:35-0500 Systolic blood pressure 112 mm[Hg] Sera Lawton MD Work Phone: [facility] Encounters Encounter Date Encounter Type Care Provider Facility Start: 04-29-2023 End: 04-29-2023 Emergency department patient visit ANTOINE JEREZ DO Facility:B Start: 04-29-2023 End: 04-29-2023 Emergency department patient visit DR ASTRID GIBBS MD [facility] Start: 05-30-2022 Telephone encounter Sera Ortiz [...] DTaP,Tdap,Td Vaccine (2 - Td or Tdap) [facility] Start: 05-27-[address] [facility] Start: 05-27-2025 COLORECTAL CANCER SCREENING COLORECTAL CANCER SCREENING [facility] Start: 12-16-2022 Covid-19 Vaccine ( season) Covid-19 Vaccine ( season) [facility] Start: 12-16-2022 Influenza vaccination Influenza Vaccine (#1) [facility] Start: 04-17-2022 ADVANCE DIRECTIVE DISCUSSION ADVANCE DIRECTIVE DISCUSSION [facility] Start: 04-17-2022 DEPRESSION ASSESSMENT DEPRESSION ASSESSMENT [facility] Start: 12-16-2021 Influenza vaccination INFLUENZA (#1) [facility] Start: 04-17-2021 ADVANCE DIRECTIVE DISCUSSION ADVANCE DIRECTIVE DISCUSSION [facility] Start: 04-17-2021 DEPRESSION ASSESSMENT DEPRESSION ASSESSMENT [facility] Start: 04-08-2021 COVID-19 VACCINE (4 - Booster for Moderna series) COVID-19 VACCINE (4 - Booster for Moderna series) [facility] Start: 01-15-2021 Pneumococcal Vaccine: 65+ (2 - PCV) Pneumococcal Vaccine: 65+ (2 - PCV) [facility] Start: 12-16-2020 Influenza vaccination Flu vaccine (#1) [facility] Start: 11-29-[address] [facility] Start: 11-29-2020 COLORECTAL CANCER SCREENING COLORECTAL CANCER SCREENING [facility] Start: 11-05-2019 PNEUMOCOCCAL: 65+ (1 - PCV) PNEUMOCOCCAL: 65+ (1 - PCV) [facility] Start: 05-28-2017 Lipid 1996 panel - Serum or Plasma Lipid Screening [facility] Start: 05-28-2017 LIPID SCREEN LIPID SCREEN [facility] Start: 08-09-[address] [facility] Start: 08-19-2015 FECAL OCCULT BLOOD FECAL OCCULT BLOOD [facility] Start: 05-28-2015 DIABETES SCREEN DIABETES SCREEN [facility] Start: 05-28-2015 Diabetes Screening Diabetes Screening [facility] Start: 2014 RSV Vaccine (1 - 1-dose 60+ series) RSV Vaccine (1 - 1-dose 60+ series) [facility] Start: 2009 Screening for osteoporosis DEXA (modify frequency per FRAX score) [facility] Start: 2004 Screening for malignant neoplasm of breast Breast cancer screen [facility] Start: 2004 SHINGRIX VACCINE (1 of 2) SHINGRIX VACCINE (1 of 2) [facility] Start: 11-05-1999 COLOGUARD (FIT-DNA) COLOGUARD (FIT-DNA) [facility] Start: 11-05-[address]APHY [facility] Start: 11-05-1999 Screening for malignant neoplasm of colon Colon cancer screen colonoscopy [facility] Start: 11-05-[address] [facility] Start: 1994 Lipid panel Lipid screen [facility] Start: 1973 DTaP/Tdap/Td vaccine (1 - Tdap) DTaP/Tdap/Td vaccine (1 - Tdap) [facility] Start: 1973 Urine microalbumin profile DTAP,TDAP,TD (1 - Tdap) [facility] Start: 1972 HEPATITIS C SCREENING HEPATITIS C SCREENING [facility] Start: 1966 COVID-19 Vaccine (1) COVID-19 Vaccine (1) [facility] Start: 1954 Hepatitis C screening Hepatitis C screen [facility] End: 03-22-2023 Screening colonoscopy COLONOSCOPY SCREENING Endoscopy Routine History of colonic polyps 1 Occurrences starting 03/22/2022 until 03/22/2023 [facility] Work Phone: Immunizations Immunization Date Immunization Notes Care Provider Rolando ernandez 01-15-2015 influenza virus vacc ine, unspecified formulation Sera Lawton MD Work Phone: [facility] Payers Date Payer Category Payer Private Health Insurance [id number] 2017 Private Health Insurance [id number] 2017 Private Health Insurance [id number] 1954 Unknown [id number] Social History Date Type Detail Facility Start: 01-29-2021 End: 04-29-2023 Tobacco smoking status WIIS Never smoked tobacco [facility] Work Phone: Start: 03-03-2011 End: 01-29-2021 Tobacco use and exposure Smokeless tobacco non-user [facility] Work Phone: Start: 1955 Sex Assigned At Not on file [facility] Work Phone: Start: 03-22-2022 Alcohol intake Current non-dr care rep of alcohol (finding) [facility] Start: 08-07-2014 Alcohol Comment [facility] Start: 05-27-2022 End: 06-01-2022 Alcohol intake Current drinker of alcohol (finding) [facility] Start: 05-02-2022 End: 05-27-2022 History of Social function [facility] Start: 05-02-2022 End: 05-27-[address] [facility] National Score (1-10 0), lower number is lower risk 61 [facility] Start: 03-22-2021 Gender identity Identifies as female gender (finding) [facility] Start: 03-22-2021 Sexual orientation Heterosexual (jarod rushing) [facility] Sex Assigned At Female [facility] Functional Status Date Assessment Result Facility 04-29-2023 Functional Status Room check performed [facility] 04-29-2023 Functional Status [facility] Mental Status Date Assessment Result Facility 04-29-2023 Mental Status Orientation Oriented x 4 [facility] 04-29-2023 [facility] Clinical Notes 03-22-2022 to 05-06-2023 Telephone Encounter [...] Locations *1: This test was performed at: [facility], [address] [place] [address], [id number] , [facility] ([facility] 05-04-2023 Note . MICRO - Microbiology [...] Locations *1: This test was performed at: [address] 05-04-2023 Note . MICRO - Microbiology [...] Locations *1: This test was performed at: [address], [address] [place] [address] ([facility] 05-01-2023 Note . MICRO - Microbiology [...] Locations *1: This test was performed at: [address], [address] [place] [address] 05-01-2023 Note . MICRO - Microbiology PROCEDURE: Acid Fast Bacilli Culture w Stain if Ind [*1] SOURCE: Synovial Fluid BODY SITE: COLLECTED DATE/TIME: 04/29/2023 13:43 EST RECEIVED DATE/TIME: 04/29/2023 15:58 EST START DATE/TIME: 04/29/2023 15:59 EST FREE TEXT SOURCE: STAINS AFS [] Verified Date/Time/Personnel: 05/01/2023 13:44 EST Acid Fast Smear from Concentrated Specimen: Negative Performing Locations *1: This test was performed at: [address], [address] [place] [address] ([place]) 04-29-2023 Hospital Discharg e instructions Patient Education 04/29/2023 13:46:54 Knee Pain of Uncertain Cause Knee Pain with Uncertain Cause There are several common causes for knee pain. These can include: A sprain of the ligaments that support the joint An injury to the cartilage lining of the joint Arthritis from ypei-wgg-bcgx or inflammation There are other causes as [...] heat. If you have to wear a hlmv-eux-uyss knee brace, you can open it to apply the ice pack, or heat, directly to the knee. Never put ice directly on the skin. Always wrap the ice in a towel or other type of cloth. You may use nhgb-wyx-tsejicq pain medicine to control pain, unless another [...] full work duties. If you have a fjvo-nki-whwk knee brace, you can remove it to [...] as directed by your healthcare provider [place] [phone] [employer]. [address] [place] [address], [place] [address]. All rights reserved. This information is not intended as a substitute for professional medical care. Always follow your healthcare professional's instructions. Follow Up Care 04/29/2023 09:57:11 With:ROXY ELY Address: [address] [place] [address] [facility] [place] [address]- [phone] Business (1) When:2-4 days Comments:Return to ED if symptoms worsen With:ANTOINE JEREZ Address: [address] [place] [address]- [phone] Business (1) When:2-4 days [facility] 04-29-2023 Evaluation + Plan note Diagnostic Tests PendingAcid Fast Bacilli Culture w Stain if Ind 04/29/23Fungal Culture with Stain if Ind 04/29/23 [facility] 04-29-2023 Note Discharge Instructions Thank you for allowing [facility] to assist you with your healthcare needs. [...] to ED if symptoms worsen Where: [address] [facility] [address] [address] [facility] [place] [address] [phone] Business (1) Follow Up with ANTOINE JEREZ When Within 2-4 days Where: [address] [place] [address]- [phone] Business (1) Allergies NKA Medications Please ask [...] may report side effects to FDA at 4-940-OLZ-6702. What other drugs will affect cephalexin? Tell your doctor about all your other medicines, especially: metformin; or probenecid. This list is not complete. Other drugs may affect cephalexin, including prescription and kgiu-miv-cogvbhm medicines, vitamins, and herbal products. Not all [...] to ensure that the information provided by [employer]. ('[employer]') is accurate, up-to-date, and complete, but no guarantee is made to that effect. Drug information contained herein may be time sensitive. [employer] information has been compiled for use by healthcare practitioners and consumers in the [place] and therefore [employer] does not warrant that uses outside of the [place] are appropriate, unless specifically indicated otherwise. [employer] drug information does not endorse drugs, diagnose patients or recommend therapy. [employer] drug information is an informational resource designed [...] effective or appropriate for any given patient. [employer] does not assume any responsibility for any aspect of healthcare administered with the aid of information [employer] provides. The information contained herein is not intended to cover all possible uses, directions, precautions, warnings, drug interactions, allergic reactions, or adverse effects. If you have questions about the drugs you are taking, check with your doctor, nurse or pharmacist. Copyright 5220-7732 [employer]. Version: 12.. Revision Date: 11/16/2022. oxycodone (ox [...] The extended-release form of oxycodone is for klnjmw-epy-rdsqv treatment of pain and should not be [...] against the law. Stop taking all other xtxqwt-idl-mpjbu opioid pain medicines when you start taking [...] may report side effects to FDA at 3-926-KWF-9659. What other drugs will affect oxycodone? You [...] may affect oxycodone. This includes prescription and ugae-ypd-rpjoono medicines, vitamins, and herbal products. Not all [...] to ensure that the information provided by [employer]') is accurate, up-to-date, and complete, but no guarantee is made to that effect. Drug information contained herein may be time sensitive. [employer] information has been compiled for use by healthcare practitioners and consumers in the [place] and therefore [employer] does not warrant that uses outside of the [place] are appropriate, unless specifically indicated otherwise. [employer]'s drug information does not endorse drugs, diagnose patients or recommend therapy. [employer] drug information is an informational resource designed [...] effective or appropriate for any given patient. [employer] does not assume any responsibility for any aspect of healthcare administered with the aid of information [employer] provides. The information contained herein is not intended to cover all possible uses, directions, precautions, warnings, drug interactions, allergic reactions, or adverse effects. If you have questions about the drugs you are taking, check with your doctor, nurse or pharmacist. Copyright 3279-4321 [employer]. Version: 16.01. Revision Date: 11/18/2022. sulfamethoxazole and [...] blood sodium or high potassium); porphyria, or qhlcody-7-ddrfislbi dehydrogenase (G6PD) deficiency; or if you use [...] may report side effects to FDA at 8-911-ZBN-9184. What other drugs will affect sulfamethoxazole and [...] sulfamethoxazole and trimethoprim. This includes prescription and oqte-tkx-fvcaefa medicines, vitamins, and herbal products. Not all [...] to ensure that the information provided by [employer]. ('[employer]') is accurate, up-to-date, and complete, but no guarantee is made to that effect. Drug information contained herein may be time sensitive. [employer] information has been compiled for use by healthcare practitioners and consumers in the [place] and therefore [employer] does not warrant that uses outside of the [place] are appropriate, unless specifically indicated otherwise. [employer]'s drug information does not endorse drugs, diagnose patients or recommend therapy. [employer] drug information is an informational resource designed [...] effective or appropriate for any given patient. [employer] does not assume any responsibility for any aspect of healthcare administered with the aid of information [employer] provides. The information contained herein is not intended to cover all possible uses, directions, precautions, warnings, drug interactions, allergic reactions, or adverse effects. If you have questions about the drugs you are taking, check with your doctor, nurse or pharmacist. Copyright 2768-9235 [employer]. Version: 13.. Revision Date: 11/17/2022. Education Materials Knee Pain with Uncertain Cause There are several common causes for knee pain. These can include: A sprain of the ligaments that support the joint An injury to the cartilage lining of the joint Arthritis from ntmp-koh-plok or inflammation There are other causes as [...] heat. If you have to wear a ewxn-xcx-xidg knee brace, you can open it to apply the ice pack, or heat, directly to the knee. Never put ice directly on the skin. Always wrap the ice in a towel or other type of cloth. You may use klaa-nrq-fqvolzr pain medicine to control pain, unless another [...] full work duties. If you have a zjyd-wbc-eque knee brace, you can remove it to [...] as directed by your healthcare provider [place] 3040-6098 [employer]. [address] [place] [address], [place] [address]. All rights reserved. This information is not intended as a substitute for professional medical care. Always follow your healthcare professional's instructions. Additional Information VACCINATE! IT SAVES LIVES! Members of the community who have not yet received the COVID-19 vaccine and would like to receive it can visit one of [facility] vaccine clinics. There are many vaccine clinic locations within the [facility]. For locations and available times, please visit www.gettheshot.coronavirus.[place] .gov/. It is important to note that some COVID mobile vaccine clinics are held outdoors and may be canceled in rainy or stormy conditions. To learn more about pediatric vaccinations (ages 5-11), we invite you to visit the [facility] webpage. https://www.[facility].org/ pages/8983-Jnavt-Iizbfkqjfcy-Fr gbufpehi-Ofjsq-Omgnqpvyq.html To learn more about the COVID-19 vaccine, we invite you to visit the CDC website for a list of frequently asked questions. https://www.cdc.gov/coronavirus /2019-ncov/vaccines/faq.html [facility] Patient Portal Access Instructions: Stay connected with your healthcare team and access your personal medical information anytime with the [facility] Patient Portal. If you would like a full copy of your medical records please contact the [facility] Medical Records Department Monday through Monday between 8a.m. and 4:30p.m. Please follow the directions below to access the portal: 1.Access the email account you provided upon registration to the hospital.2.Look for an invitation email from [facility].3.Open the email and access the invitation link: Accept Invitation to [facility]4.Fill in the required bishop to create your account. Sign into [email or web address] with your username and password that you [...] you will allow to register on the [facility] Patient Portal for access to your information. You can also access the [facility] Patient Portal on the [employer] [place]. Simply click on Health Records under [...] Call your local pharmacy or go to [email or web address] to find one close to you.3.Make use of household items: Use cat litter or old coffee grounds to dispose medications if other options are not available. Mix your drugs with these household products, seal them in an airtight container and throw it into the garbage. Call [facility]: [phone] to be sure your drugs can be [...] aware that I should contact my doctor. 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 Signature: Date/Time: Relationship to Patient: Witness Name/Signature: Date/Time: [facility] 04-29-2023 Note ORIGINAL EXAMINATION: TWO XRAY [...] 04/29/2023 1:40:11 PM Ordering Provider: ASTRID GIBBS [facility] 04-29-2023 Note ORIGINAL EXAMINATION: TWO XRAY [...] Sign Date: 04/29/2023 1:40:11 PM Ordering Provider: [facility] 04-29-2023 Note ORIGINAL EXAMINATION: XRAY VIEWS [...] Sign Date: 04/29/2023 12:11:26 PM Ordering Provider: [facility] 04-29-2023 Note ORIGINAL EXAMINATION: ONE XRAY [...] Sign Date: 04/29/2023 11:08:25 AM Ordering Provider: [facility] 04-29-2023 SARS-CoV-2 (COVID-19) RNA LACEY+probe Ql (Nph) Negative *NA* (04/29/23 10:23 AM) AO Auto Urine SS 05-30-2022 Miscellaneous Notes Told patient pathology results from colonoscopy - sessile serrated polyp, < 1 cm, I have rec'd follow up surveillance colonoscopy in 3 years Patient acknowledges above HM updated and recall letter entered. documented in this encounter [facility] 05-27-2022 Nurse Note Arrived in phase II via cart. Left lateral position. Sedated, but responds to verbal stimuli. Color normal; skin warm and dry. Respirations wnl and unlabored. Abdomen soft and with + bowel sounds in quads X 4. Patient resting comfortably. Viviana Yeboah RN documented in this encounter [facility] 05-27-2022 History and physical note UPDATED PROCEDURAL [...] Onset Hypertension Mother Hypertension Father Heart Mother [place] REVIEW OF SYMPTOMS: The review of systems [...] Onset Hypertension Mother Hypertension Father Heart Mother [place] REVIEW OF SYMPTOMS: The review of systems [...] (primary encounter diagnosis) documented in this encounter [facility] 05-26-2022 Miscellaneous Notes [facility] for Reva regarding Dr. Lawton's message. [...] tomorrow. Please advise documented in this encounter [facility] 05-16-2022 Miscellaneous Notes Patient called to notify Dr. Lawton that she has been prescribed Amoxicillin by [facility] to take prior to colonoscopy. Gissell Leigh LPN documented in this encounter [facility] 03-22-2022 Note HNO ID: [id number] Author: Sera Lawton MD Service: ? Author [...] Onset Hypertension Mother Hypertension Father Heart Mother [place] REVIEW OF SYMPTOMS: The review of systems [...] patient was offered a surgery/procedure at a [facility] facility. The provider and patient have discussed [...] by others. Return (more content not included)... [facility] 03-22-2022 History of Presen t illness Narrative [...] Onset Hypertension Mother Hypertension Father Heart Mother [place] REVIEW OF SYMPTOMS: The review of systems [...] patient was offered a surgery/procedure at a [facility] facility. The provider and patient have discussed [...] patient will be scheduled at [facility] for [facility]oscopy. Medical Decision Making: Risk: Moderate: [...] Gissell Leigh LPN documented in this encounter [facility] 03-22-2022 Note HNO ID: [id number] Author: Gissell Leigh LPN Service: ? Author [...] 2020 Last Colonoscopy: 2015 Gissell Leigh LPN [facility] 03-22-2022 Instructions Sera Lawton MD - 03/22/2022 [...] If you do not have a responsible fleet driver (family member or friend) with you [...] exam. 2 03/[address] [facility] Special screening for malignant neoplasms, colon- Primary History of colonic polyps Personal history of colonic polyps documented in this encounter [facility] course Narrative No data available for this section [facility] Reason for referral (narrative)* Outpatient Procedure (Routine) - Authorized Specialty Diagnoses / Procedures Referred By Jake knott Referred To Contact [facility] Diagnoses History of colonic polyps Procedures COLONOSCOPY SCREENING COLONOSCOPY FLX DX W/COLLJ SPEC WHEN Sera Davis MD [address] [place] [address] [place] [address] Referral ID Status Reason Start Date Expiration Date Visits Requested Visits Authorized [id number] Authorized Auto-Generat ed Referral 03/22/2022 03/22/2023 1 1 [facility] for referral (narrative)* Outpatient Procedure (Routine) - Closed Specialty Diagnoses / Procedures Referred By Jake knott Referred To Contact [facility] Diagnoses History of colonic polyps Procedures COLONOSCOPY SCREENING COLONOSCOPY FLX DX W/COLLJ SPEC WHEN Sera Davis MD [address] [place] [address] [facility] [address] [address] Referral ID Status Reason Start Date Expiration Date V isits Requested Visits Authorized [id number] Closed Auto-Generate d Referral 03/22/2022 03/22/[address] [facility] Outpatient Procedure (Routine) - Closed Specialty Diagnoses / Procedures Referred By Contac t Referred To Contact [facility] Diagnoses History of colonic polyps Procedures COLONOSCOPY SCREENING COLONOSCOPY FLX DX W/COLLJ SPEC WHEN P[facility]MD Sera Lawton MD [address] [facility] [facility] [address] [facility] [address] [place] [address] Referral ID Status Reason Start Date Expiration Date V isits Requested Visits Authorized [id number] Closed Auto-Generate d Referral 03/22/2022 03/22/[address] [facility] Summary Purpose Family History No Family History [...] or prosecute any alcohol or drug abuse patient.[facility] the event this information is protected by the Federal Confidentiality of Alcohol and Drug Abuse Patient Records regulations: The Federal rules restrict any use of the information to criminally investigate or prosecute any alcohol or drug abuse patient.[facility] the event this information is protected by the Federal Confidentiality of Alcohol and Drug Abuse Patient Records regulations: The Federal rules restrict any use of the information to criminally investigate or prosecute any alcohol or drug abuse patient.[facility] the event this information is protected by the Federal Confidentiality of Alcohol and Drug Abuse Patient Records regulations: The Federal rules restrict any use of the information to criminally investigate or prosecute any alcohol or drug abuse patient.[facility] the event this information is protected by the Federal Confidentiality of Alcohol and Drug Abuse Patient Records regulations: The Federal rules restrict any use of the information to criminally investigate or prosecute any alcohol or drug abuse patient.[facility] Reason for Visit (unrecogniz ed section and content) Reason Comments Patient Update Regarding antibiotic d/t ortho Reason Comments Patient Update Reason Comments Results Care Teams (unrecognized sec tion and content) Medical Manager Relationship Specialty Start Date End Date Pcp, No PCP - General 10/30/21 05/17/22 Brandt Ramos MD [address] [place] [address] [phone] 06/30/04 Medical Manager Relationship Specialty Start Date End Date Brandt Ramos MD [address] [place] [phone] 06/30/04 Medical Manager Relationship Specialty Start Date End Date Brandt Ramos MD [address] [place] [id number] 06/30/04 Medical Manager Relationship Specialty Start Date End Date Brandt Ramos MD [address] [place] [address] [id number] 06/30/04 INFORMATION SOURCE (unrecogn ized section and content) DATE CREATED AUTHOR AUTHOR'S ORGANIZ ATION 05/07/2023 [facility] ([place]) FOR RECORDS PERTAINING TO PATIENTS WHO [...] BE BASED ON THE PRIMARY CLINICAL RECORDS. [facility]. provides no warranty or guarantee of the accuracy or completeness of information in this document.
--- NOTE | 2023-05-15 12:14 | STRESSREP ---
Stress Test Report Date: 05/15/2023 Procedure: Pharmacologic stress nuclear imaging study Indications: Abnormal ECG Consent: Per the patient Procedure: The patient underwent pharmacologic (Regadenoson 0.4mg ) evaluation with a peak heart rate of 102 beats per minute (67%predicted maximal heart rate) and a peak blood pressure of 140/82 mmHg. The baseline ECG demonstrated sinus rhythm with nonspecific ST changes. The peak pharmacologic ECG demonstrated no diagnostic ischemic changes. There were no cardiac dysrhythmias pretest, during pharmacologic infusion, or recovery. There was no complaint of chest discomfort during pharmacologic infusion or recovery. The patient was injected with 11.4 millicuries of technetium 99m Cardiolite and subsequently rest SPECT Cardiolite nuclear imaging was obtained in the horizontal long, vertical long, and short axis views. The patient underwent pharmacologic (Regadenoson) evaluation. The patient was injected with 34.3 millicuries of technetium 99m Cardiolite and subsequently stress SPECT Cardiolite nuclear imaging was obtained in the horizontal long, vertical long, and short axis views. A gated Cardiolite study at peak stress was obtained. The examination was stopped secondary to completion of protocol. Rest and stress SPECT Cardiolite nuclear imaging status post realignment, normalization, and attenuation correction demonstrate mild apical attenuation artifact. There is end systolic thickening and brightening. The gated Cardiolite study demonstrates myocardial thickening and inward wall motion. The reported LVEF is 68%. Impression: 1. Pharmacologic (Regadenoson) evaluation 2. Peak pharmacologic ECG with no diagnostic ischemic changes. 3. There were no cardiac dysrhythmias pretest, during pharmacologic infusion, or recovery. 5. Rest and stress SPECT Cardiolite nuclear imaging demonstrate relative uniform tracer uptake and myocardial perfusion appearing within normal limits. 6. The gated Cardiolite study reports an LVEF of 68%. This note was generated with [employer] software. It may contain incorrect words, spelling, and punctuation that were not noted in checking the note before signing.
== END | disposition home or self-care (01) ==
LOC: CVS 06:16
PROVIDERS: PCP Family Medicine; Referring Provider Internal Medicine Cardiovascular Disease; Visit Provider Internal Medicine Cardiovascular Disease
DX: Z01.810 Encounter for preprocedural cardiovascular examination (principal); R94.31 Abnormal electrocardiogram [ECG] [EKG]; E78.00 Pure hypercholesterolemia, unspecified
CPT/HCPCS: 78452; 93017; 93306; A9500; A4216; J2785

== ENCOUNTER 2023-05-17 08:42 | Inpatient (IN) | payer OTHER, MEDICARE, SELFPAY ==
--- NOTE | 2023-05-05 08:25 | EKG12_ITS ---
Test Reason : PREOP Blood Pressure : / mmHG Vent. Rate : 084 BPM Atrial Rate : 084 BPM P-R Int : 148 ms QRS Dur : 110 ms QT Int : 382 ms P-R-T Axes : 073 058 074 degrees QTc Int : 451 ms Normal sinus rhythm Anterior infarct , age undetermined Abnormal ECG Confirmed by ROMEL THOMAS, CHRISTA ([id number]), editor dictionary NISHA LOPEZ ([id number]) on 05/05/2023 1:31:23 PM Referred By: Ryan Christie Confirmed By:CHRISTA URENA MD
[2023-05-05 09:28] LABS: Absolute Lymphocyte Count 1.03 X10^3/uL (0.83-4.51); Absolute Neutrophil Count 5.5 X10^3/uL (2.0-7.7); Basophil# 0.06 X10^3/uL; Basophil% 0.7 % (0-1); Eosinophil# 0.74 X10^3/uL; Eosinophils% 9.1 % (0-5); Hematocrit 34.5 % (37-47); Hemoglobin 10.5 g/dL (12.0-15.0); Lymphocyte # 1.03 X10^3/ul (0.83-4.51); Lymphocyte % 12.7 % (19-41); Mean Corp Hgb Conc 30.4 g/dL (32-36); Mean Corpuscular Hgb 25.6 pg (27.0-32.0); Mean Corpuscular Volume 84.1 fL (81-99); Mean Platelet Vol. 8.8 fl (6.2-12.0); Monocyte# 0.77 X10^3/uL; Monocyte% 9.5 % (0-10); NRBC Flagged by Analyzer 0 % (0-5); Neutrophil # 5.47 X10^3/uL (2.7-7.7); Neutrophil % 67.6 % (47-70); Platelet Count 537 K/mm3 (150-450); RBC Distribution Width CV 13.9 % (11.6-14.6); RBC Distribution Width SD 43.3 fl (35.1-43.9); White Blood Count 8.1 K/mm3 (4.4-11.0)
[2023-05-05 10:12] LABS: Albumin, Serum 2.9 g/dL (3.2-5.0); Anion Gap 4 (5-15); BUN 17 mg/dL (7-18); BUN/Creat Ratio 20.9 RATIO (10-20); Calcium,Total 9.6 mg/dL (8.5-10.1); Chloride 105 mmol/L (98-107); Creatinine, Serum 0.81 mg/dL (0.55-1.02); EST Glomerular Filtration Rate 74 mL/min (>60); Est Glom Filt Rate - Afr Amer 90 mL/min (>60); Glucose 93 mg/dL (74-106); Sodium Level 137 mmol/L (136-145)
[2023-05-05 10:29] LABS: Magnesium 2.5 mg/dL (1.6-2.6); Thyroid Stim Hormone (TSH) 1.66 uIU/mL (0.358-3.74)
--- NOTE | 2023-05-09 19:11 | HP.PCM_ITS ---
History and Physical History and Physical? Patient Name: Reva Taylor : 1955 From:? KYLE VALLE PA-C? DATE OF PRE-OPERATIVE EXAM: 05/08/2023 DATE OF SURGERY:? 05/17/2023 SCHEDULED PROCEDURE:? Irrigation and debridement with revision right distal femoral placement HISTORY OF PRESENT ILLNESS: Preoperative history and physical exam was performed on May 08, 2023.? This is a 67-year-old female who has had ongoing pain with her right knee for over 2 months.? Pain has been progressively been getting worse.? Her pain can reach 9/10.? Pain is increased with going up and down stairs, walking, driving.? She has worsening pain with steps.? Pain is located over the anterior knee.? Pain does awaken her at night.? Patient has had a previous distal femoral resection in 1998 with subsequent distal femoral placement prosthesis.? She had 2 episodes of loosening with revision in 1999 and 2000.? Patient had significant loss of motion with stiffness of the knee.? In 2015 after having an endoscopy patient began having an effusion in her right knee.? Patient met criteria for infectious etiology however never had any positive cultures.? We proceeded at that time with irrigation debridement and revision of inner change of the parts.? Patient has also had lymph node resection since her surgeries in the early 1999 with concern of plastic debris causing lymphadenopathy in the right lower extremity groin.? She has had x-rays at the emergency room where there was concern for loosening however based on Dr. Ryan Christie's review he did not feel that the radiologist was aware that patient had an all polyethylene tibia generating lucencies.? Most concerning for the patient is that her pain continues to progress over the past couple months.? She did have positive serum inflammatory markers in the emergency department and aspiration was performed.? Patient has been taking in the past amoxicillin and Bactrim which was recently stopped.? A repeat aspiration was performed by Dr. Ryan Christie in which her Synovasure results were not consistent with an active infection.? She did have a positive CRP.? ESR was normal.? The white blood cell count has decreased since her emergency room visit.? Blood cultures were unremarkable.? Patient has medical history pertinent for thyroid disease.? She denies any hypertension, type 2 diabetes mellitus, denies past history of DVT or pulmonary embolism.? Patient currently denies any chest pain, shortness of breath.? She did have preoperative lab work as well as EKG.? EKG does have an abnormality.? We are having patient going to see a global sales manager.? After failing conservative measures and discussing treatment options patient would like to continue with an irrigation and debridement with revision right distal femoral replacement.? We will proceed as long as patient can get appropriate clearance.? Dr. Ryan Christie did have a long discussion with the patient in which she is aware that we may ultimately never be able to fully delineate between infection versus polyethylene debris and associated inflammatory response.? There is concern for high potential bone loss with removal of the well fixed femoral cemented stem.? This could lead to further bone loss and likely making it possible for total femoral replacement which is a procedure associated with significant complications.? Dr. Ryan Christie has recommended that we proceed with surgical intervention retaining the cemented femoral stem.? She will most likely be on chronic suppressive antibiotics. REVIEW OF SYSTEMS: Review Of Systems: Constitutional: Denies change in appetite, fever,or weight change. Cardiovasular: Denies chest pain, heart murmur and irregular heartbeat. Respiratory: Reports cough, but denies pneumonia, shortness of breath, tuberculosis and wheezing. Gastrointestinal: Denies constipation, diarrhea, heartburn, nausea, rectal itching, bloody stools and vomiting. Genitourinary: Denies incontinence. Musculoskeletal: Reports gait disturbance and pain, but denies leg swelling and trouble walking. Skin: Denies Raynaud's, history of shingles and tattoo. Neurological: Denies ambulatory dysfunction, dizziness, numbness/tingling and tremor. Psychiatric: Denies anxiety, insomnia and stress. Hematologic/Lymphatic: Denies anemia, bleeding/bruising tendency and past transfusion. Reviewed, no changes. PAST MEDICAL HISTORY: Advance Care Plan: Other Directive, POA Effective Date: 12/06/2018 Other Directive, LIVING WILL Effective Date: 12/06/2018 Past Medical History: Medical Problems: Cancer, Thyroid Disease Accidents: None Surgical Hx: Tubal Ligation - (1989) [email or web address] RT TKR - 1998, 1999 & 2000 KEYONA AGUILERA RT TKR Revision - (12/04/2015) [email or web address] Anesthesia Complications: Nausea Assistive Devices: Contacts Reviewed, no changes. SOCIAL HISTORY: Social History: Marital: .Occupation: [employer].Work Status: Currently Working.Hand Dominance: Right-handed. Personal Habits:? Cigarette Use: Never Smoked Cigarettes.Smokeless Tobacco: Never Used Smokeless Tobacco.E-Cigarette Use: Never Used.Alcohol: Occasionally.Drug Use: Denies Use.Enjoy Exercising: Exercises 1-3 X/Week. Reviewed, no changes. VITALS: Ht: 66 Wt: 127lb Wt k.607 BMI: 20.5 BP: 118/80 Pulse: 67 Resp: 16 T: 98.7 T: 37.1C Pain Level: 7 O2SatR: 99 ALLERGIES: Clindamycin? MEDICATIONS: Iron (Ferrous Sulfate) 325 (65 Fe) MG one by mouth once per day, Folic Acid 1 mg 1 by mouth every day, Fluticasone Propionate Nasal [place] Allergy Relief 24- Hour 50 mcg/Act 50 mcg dose = 1 spray(s), nostril, each, qam, 0 refill(s), Sulfamethoxazole/Trimethoprim DS 800-160 mg dose = 1 tab(s), oral, bid, x 10 day(s), # 20 tab(s), 0 refill(s), 55.9, Oxycodone HCL 5 mg dose : 5 mg = 1 tab(s), oral, q6h, prn for pain, x 5 day(s), # 20 tab(s), 0 refill(s), 05/04/23 1:47:00 pm est, knee pain, 55.9, Cephalexin 500 mg dose : 500 mg = 1 cap(s), oral, qid, x 10 day(s), # 40 cap(s), 0 refill(s), 05/09/23 1:47:00 pm est, 55.9, Amoxicillin 500 mg 4 by mouth 1 h prior to dental procedure, Vitamin D3 56308 Unit 1po qday, Preservision Areds 2 + Multi Vitamin Areds 2 2 by mouth every day, Osteo Bi-Flex Regular Strength 250-200 mg 1 by mouth every day, Flonase Allergy Relief 50 mcg/Act once a day, Levothyroxine Sodium 25 mcg take 1 tablet by mouth every day PRE-OP EXAM:? General appearance:NORMAL? ? ? Other: Eyes: Conjunctivae and lids: NORMAL? Pupils: ERR Ears, Nose, Mouth, and Throat: NORMAL? Other: Inspection of lips, teeth and gums: NORMAL? ?Other: Neck: Examination of neck: no masses noted. Respiratory: Assessment of respiratory effort: NORMAL? ?Other: ?Auscultation of lungs: clear to auscultation no wheezes, rhonchi or rales. Cardiovascular:? Auscultation of heart: regular rate and rhythm, no murmurs, gallops or rubs. PHYSICAL EXAMINATION: Previous incision is well-healed without erythema or signs of infection.? She does have mild effusion.? She has limited range of motion.? Tenderness to palpation diffusely throughout the knee.? Extensor mechanism intact.? Stable to varus/valgus stress test.? Sensation intact to light touch. IMAGING STUDIES: Previous x-rays of the right knee reveal distal femoral replacement with longest available stem.? The femoral cement mantle goes above the lesser trochanter in the intertrochanteric area.? 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 When reviewing available serial radiographs there does appear to be increasing lucency along the medial tibial baseplate and keel potentially consistent with radiographic loosening of the tibial implant.? Femur remains well fixed. IMPRESSION: 1.? Painful right knee distal femoral replacement 2.? Thyroid disease 3.? Anemia PLAN: Dr. Ryan Christie did discuss and review with the patient all treatment options including surgical versus nonsurgical options.? Patient does wish to proceed with the above-stated procedure.? Potential risks, benefits, and complications of the procedure were discussed in detail including but not limited to , infection, nerve and blood vessel damage, persistent pain, numbness, tingling, paresthesias, blood clot, pulmonary embolism, and requirement for possible further surgery.? The patient expressed full understanding and has no further questions for the doctor.? Patient does agree to proceed with the above-stated procedure and has signed the surgery consent form. POST-OP MEDICATION PLAN: Pain Medications: Postoperative pain regimen will be initiated by Dr. Ryan Christie postsurgery.? She was preoperatively started on ferrous sulfate and folic acid due to anemia.? She has also been using protein drinks twice daily. DVT Prophylaxis:? Aspirin 81 mg twice daily for 4 weeks postoperatively.? Denies past history of DVT or pulmonary embolism This dictation was created using voice recognition software. Phonetic and/or grammatical errors may exist. ___? I have re-examined the patient.? There are no clinical changes since date of exam. ___? See progress notes for changes. ___? Dictated on admission Date: ? ? ?Time: Signature:
[2023-05-17] VITALS (11 sets, daily range): BP systolic 114–137; BP diastolic 49–98; PULSE 63–77; RESP 16–18; TEMP 36.2–36.8; O2SAT 97–100; BMI 19.9
[2023-05-17] MEDS: Magnesium 1 GM over 15 mins IV (09:50)
[2023-05-17] MEDS: Lactated Ringers 1,000 ML 999 ML IV ×2 (09:50→15:20)
[2023-05-17] MEDS: Celecoxib 200 MG Capsule 400 MG PO (09:51)
[2023-05-17] MEDS: Acetaminophen 500 MG Tablet 1000 MG PO ×2 (09:51→21:10)
[2023-05-17] MEDS: Gabapentin 600 MG Tablet PO (09:51)
[2023-05-17 10:10] LABS: Bedside Glucose 112 mg/dL (74-106)
--- NOTE | 2023-05-17 11:15 | SYN_PTH ---
PATHOLOGY RESULTS PATIENT: SALVATORE GAMBOA LOC: MS3 U#:[id number] AGE/SX: 67/F ROOM: [facility] RE05/17/[address]: Dr. Ryan Christie MD : 1955 BED: 1 DIS: 05/22/2023 SPEC #: [id number] RECD: 05/18/23 07:30 STATUS: ASHUTOSH JUSTICE #: [id number] MERCEDEZ: 05/17/23 11:[address]: Ryan Christie DEPT: SURGICAL PATHOLOGY RECD BY: Olivia Cohn ENTERED: 05/18/23 07:31 SP TYPE: SYNOVIUM OTHR DR: DO Dr. Christi Fortune MD Kristin M Wenger, DO Dr. Nicholas F Kotsonis, MD Dr. Paige Pierce, MD Tissues: Synovial tissue of joint, NOS Procedures: Surgery Specimen Level IV HEADER OPERATION: ERAS, Irrigation and debridement with revision of distal femur PRE-OP DIAGNOSIS: Painful right knee, distal femoral replacement TISSUE SUBMITTED: Medial joint synovium right knee MICROSCOPIC DIAGNOSIS Synovium of right knee, biopsy: Fibrosis, fibrinoid degeneration and chronic inflammation. AM:anabela 05/19/2023 MICROSCOPIC DESCRIPTION Slides are reviewed. GROSS DESCRIPTION Received in fixative is one container labeled with the patient's name and designated medial joint synovium right knee. The specimen consists of two pieces of light yellow indurated tissue measuring in aggregate 7.0 x 4.5 x 1.5 cm. Casing Cooker sections are submitted in two cassettes. / SJ:anabela 05/18/2023 TC:3 CPT: 65215
[2023-05-17] MEDS: TXA 1000mg in NS100 100ml (IVPB at Incision) 660 MG IV (12:03)
[2023-05-17] MEDS: dexAMETHasone 10 MG/ML Vial IV (12:08)
[2023-05-17] MEDS: Cefazolin 2 GM in 0.9% Normal Saline (100mL Bag) 100 ML IV (13:09)
[2023-05-17] MEDS: TXA 1000mg in NS100 100ml (IVPB at Closure) 660 MG IV (14:41)
--- NOTE | 2023-05-17 15:13 | OP.PCM_ITS ---
Report of Operation Date of Procedure: 05/17/23 Pre-Operative Diagnosis: Painful right total knee replacement, polyethylene wear Post-Operative Diagnosis: painful right total knee replacement, polyethylene wear, failed Avila taper distal femur. Surgery/Procedure Performed:: Revision right total knee replacement distal femoral replacement and entire tibial component. Description of Surgical Findings:: Intraoperatively it was noted that once we remove the cement surrounding the femoral implant the Avila taper links were not adequately bonded and noted to have micromotion. Additionally all polyethylene tibial component had cracking and where with loosening of the cement mantle. Finally there was a small episiotomy noted while placing the final tibial implants. Did not extend to 2 cortices. Was stable when placing tibial cone. There was a significant amount of spongy intra-articular debris noted. Surgeon: Ryan Christie nuclear design engineer: Ajith Villavicencio Type of Anesthesia: Spinal Anesthesiologist: Toño Nguyen Special Medications: ANCEF AFTER CULTURES Specimen's removed: 3 separate specimens were sent to culture. Intra-articular debris tissue was sent for pathology. Estimated Blood Loss (mL): 200 mL Fluids Replaced: Crystalloid 900 mL Description of Procedure: On date of procedure patient was seen and evaluated in the preoperative area. At her preoperative appointment patient was noted to have a abnormal EKG. Cardiac clearance was verified. We again verified the plan with the patient. Patient demonstrated understanding. We again reiterated that she did not meet criteria for infectious etiology. All patient parties agreed on the treatment plan. Patient's right leg was marked in the preoperative area and patient was taken back to the operating room. Spinal anesthetic was administered and patient was laid in the supine position. Anesthesia assumed control of the C- spine and airway and remained controlled throughout the remainder of the procedure. All bony prominences were identified well-padded. Tourniquet was placed on the right upper thigh and the right lower extremity was prepped in a sterile fashion while the surgeon scrubbed. Upon reentering the room the right lower extremity was draped in the standard orthopedic fashion. Incision was marked out using the previous incision and Ioban was placed in the skin. Timeout was called and everyone agreed upon the side, the site, the procedure to be performed, patient's identity and antibiotics given. Esmarch bandage was used to exsanguinate the extremity and tourniquet was placed to 250 mmHg. Incision was taken down through skin subtenons tissue fat down to fascia. We identified the extent of the extensor mechanism and palpated out the patella. In doing this we then made arthrotomy and medial parapatellar fashion. Upon entering the joint it was noted there was some spongy debris within the joint. This was carefully debrided and some of this was sent to pathology. We then performed a complete synovectomy with the knee in extension. 3 separate specimens were sent to microbiology. Once we completed the synovectomy is much as we could we then elected to remove the distal femoral component. There was a small lateral incision made in order to remove the pin from the hinge. Once this pin was removed we then dissociated the femoral tibial components. The rotating portion of the tibial components were removed and we began debriding the cement from around the distal femur which was uses a cement spacer at the last visit. As we began debriding the cement spacer we noted that the previous Avila taper just linking the distal femoral component body to the cemented stem were not stable. There was micromotion in these areas. There was some black debris here as well. The stem cemented into the femur was left in place and remained well-fixed. At this time we completed our synovectomy in the posterior portion of the knee. Once this was done we flexed the knee up and began to work on the tibial implant. There was an all polyethylene tibial implant. We carefully debrided underneath the cement mantle and noted that this area was was grossly loose. However the distal portion seem to be well-fixed. We used a saw to cut the proximal all polyethylene tibial off. We then burred around the keel and used a vice marine extension agent with back slap to remove the intramedullary portion of the keel and rotating- hinge all polyethylene tibial component. Once was done we debrided the rest the cement. We then reamed the canal for a proximal tibial hinge implant and then reamed for a size C cone. And reaming for the size C cone we did note that there was a small episiotomy in the anterior tibia just lateral to the tibial tubercle. We carefully watch this and explored it went about a centimeter down and remained stable and preparing the rest of the tibia. The tibial baseplate was selected and the keel was punched. The trial was put into place. We then trialed using the distal femoral component 40 body and small right distal femoral 65 mm implant. We try to 16, 13 and 10 mm polyethylene. The 10 mm gave us about 80 degrees of flexion and with the knee in extension had appropriate tension on the quadriceps. Based on patient's previous limitations in range of motion and complaints we elected to proceed with a 10 mm. Once were happy with the trials trials were removed 6 L of normal saline were irrigated throughout the wound. Tibial components were opened on the back table and cement was prepared for mixture. Once his tibial components were assembled with the S2 tibial tray and 12 x 50 mm cemented stem and the irrigation was completed the cement was mixed. Tourniquet was let down hemostasis obtained. We then placed tourniquet back up for cementing. Bone was irrigated and dried. The cone was placed and again we visualized the episiotomy which remained stable. The tibia was then cemented into place pressurized the canal. After the cement cured we again verified that the Peezy on any was stable. Knowing that we had bypassed episiotomy we felt would be appropriate to proceed with weightbearing as tolerated as previously planned. Once the tibia was appropriately fixed into place. The distal femoral components were open and assembled. Avila tapers were checked and remained stable after final impaction onto the distal femoral stem. Finally, we again trialed the 10 mm gave us the best range of motion and appropriate tension of the tissues. 3 degree bumper was selected and the bushings and central bar were put into place for the hinge component. Knee was taken through range of motion and could flex to about 80 degrees with good patella tracking. The wound was irrigated out with a 3-minute dilute Betadine lavage followed by 1 minute chlorhexidine lavage followed by copious amounts of normal saline. Once it was done tourniquet was let down hemostasis was obtained. Hemostasis was maintained throughout closure. In order to help with patellar tracking we did do it lateral release. Arthrotomy was closed with #1 Vicryl. We used 16 interrupted sutures and then ran proximally and distally. Skin was closed with 2-0 Vicryl and final skin closure was done with 2-0 nylon sutures. Sterile dressing was placed. Patient was then awakened by anesthesia and transferred to the PACU for recovery in stable condition. Postop plan: Will follow cultures for a minimum of 48 hours before discharging patient. Patient will be weightbearing as tolerated range of motion as tolerated working with physical therapy. Will plan to proceed with a wound VAC dressing tomorrow morning to help with wound healing considering the patient's previous surgical history. 81 mg aspirin p.o. twice daily for DVT prophylaxis. If cultures are negative we will continue the patient on 6 weeks of doxycycline as she is high risk. My physician wild life photographer (ALYSSA) was a vital part of this case. They were important in appropriate retraction during the case, and protection of soft tissues during bony cuts. Their intimate knowledge of the case and my steps aided in safe and expedient completion of the procedure as well as appropriate position of the leg during the case. They were also vital in assisting with closure under my direct supervision. Implants: Distal femur: [place] distal femoral placement hinged implant with small 65 mm distal femoral component and 40 mm body component. Small bushings bearing. 3 degree lumbar. Tibia: Lionel triathlon TriTanium size C tibial cone [place] GMRS S2 tibial component with 12 x 50 mm cemented stem. Complications Nondisplaced episiotomy noted at the proximal tibia Admit VTE Documentation VTE Present on Admission: No VTE Mechan Device Prophylaxis: SCD's and Thigh High JASON Hose VTE Pharm Prophylaxis ordered?: Yes
--- NOTE | 2023-05-17 16:03 | RAD_ITS ---
INDICATION: post op -- AP and Lateral x-ray of operative knee in PACU EXAMINATION/TECHNIQUE: X-RAY - RIGHT XR Knee 1 or 2 Views 2 VIEWS COMPARISON: Prior study dated: 12/04/2015. FINDINGS: SOFT TISSUES: Gas in the soft tissues of the knee anteriorly consistent with recent surgery. Surgical clips in the soft tissues posteriorly. No radiopaque foreign body. BONES/JOINTS: Revision of total right knee arthroplasty. No demonstrated acute complications . No sclerotic or destructive changes observed. RAD/Knee 1 or 2 Views IMPRESSION: Status post revision of total knee arthroplasty. Electronically Signed: Antonio Peter MD at 16:25 EST ,
--- NOTE | 2023-05-17 16:38 | SUR.PHASEI ---
AWAITING CLEAN ROOM 322
--- NOTE | 2023-05-17 20:50 | PN.HOSP_ITS ---
Reason for Visit Reason for Visit: Diagnoses Encounter for other preprocedural examination (05/17/23) Subjective Subjective Patient is a 59-year-old female with history of arthritis and hypothyroidism who presented to [facility] 05/17[facility] for a revision of right total knee replacement with distal femoral replacement entire tibial component. Patient underwent revision and was transported to the floor, hospitalist contacted for medical management. Patient seen at bedside and reports she initially been a little bit nauseous but did not vomit and is feeling much better now, little bit tired and knees a little bit stiff but overall has no other complaints. Objective Data Objective Data Vital Signs: Vital Signs Temp Pulse Resp BP Pulse Ox O2 Del Method O2 Flow Rate 97.8 F 74 18 117/61 99 Room Air 4 05/17/23 18:10 05/17/23 18:10 05/17/23 18:10 05/17/23 18:10 05/17/23 18:10 05/17/23 18:27 05/17/23 16:30 Oxygen Flow Rate (L/min) 4 Oxygen Delivery Method Room Air Weight: 56 kg Body Mass Index (BMI) 19.9 Intake & Output: Intake and Output for Last 24 Hours 05/15/23 05/16/23 05/17/23 23:59 23:59 23:59 Intake Total 2432 / 2432 Balance 2432 / 2432 Lab / Micro Data 05/05/23 08:44 05/05/23 08:44 Labs: Laboratory Results - last 24 hr 05/17/23 09:39: POC Glucose 112 H Micro: Microbiology 05/05/23 08:44 Swab (Method) Nasal Screen MRSA/MSSA - Final Radiography Diagnostic Testing: Radiology Impression Knee X-Ray 05/17/23 16:03 IMPRESSION: Status post revision of total knee arthroplasty. Electronically Signed: Antonio Peter MD at 16:25 EST , Physical Exam Narrative General: Alert, oriented, no apparent distress HEENT: Atraumatic, normocephalic Eyes: Anicteric, normal conjunctiva, extraocular movements grossly intact Neck: Supple Respiratory: Clear to auscultation bilaterally, normal respiratory effort Cardiovascular: Regular rate and rhythm GI: Soft, nontender, nondistended Extremities: No edema Musculoskeletal: Moving all extremities Neuro: No overt focal neurological deficits Skin: No rashes appreciated Psych: Cooperative Assessment & Plan Assessment/Plan (1) Arthritis: PLAN: Plan # Right knee pain -Postop day 0 for revision right total knee replacement with distal femoral replacement and entire tibial component -Management per primary -Pain control -PT/OT #Hypothyroidism -Continue Synthroid #DVT ppx: Per primary Sendy Christy MD Charges/Coding Visit Charges Inpatient E&M: 11457 Subs Hosp L1
[2023-05-17] MEDS: Cefazolin 1 GM/50 ML BAG IV (21:05)
[2023-05-17] MEDS: Senna/Docusate Sodium 1 Tablet 2 TABLET PO (21:10)
[2023-05-17] MEDS: Aspirin 81 MG TAB.CHEW PO (21:11)
[2023-05-18] MEDS: Ketorolac 15 MG/ML Vial IV ×2 (00:46→09:56)
[2023-05-18] MEDS: 0.9% Saline Lock 10 ML Syringe IV ×2 (00:46→09:56)
[2023-05-18 01:30] VITALS: BP 110/68; PULSE 70; RESP 16; TEMP 36.7; O2SAT 98
[2023-05-18] MEDS: Acetaminophen 500 MG Tablet 1000 MG PO ×3 (05:09→22:07)
[2023-05-18] MEDS: Cefazolin 1 GM/50 ML BAG IV (05:09)
[2023-05-18] MEDS: Levothyroxine 25 MCG TABLET PO (05:09)
[2023-05-18 06:00] VITALS: BP 124/57; PULSE 60; RESP 16; TEMP 36.7; O2SAT 100
[2023-05-18] MEDS: Cholecalciferol (VIT D3) 25 MCG TABLET (1,000 UNITS) PO (08:16)
[2023-05-18] MEDS: Ascorbic Acid 500 MG Tablet 1000 MG PO (08:16)
[2023-05-18] MEDS: Senna/Docusate Sodium 1 Tablet 2 TABLET PO ×2 (08:16→22:08)
[2023-05-18] MEDS: Famotidine 20 MG Tablet PO (08:16)
[2023-05-18] MEDS: Aspirin 81 MG TAB.CHEW PO ×2 (08:16→17:20)
[2023-05-18] MEDS: Multivitamin (Healthy Eyes) Capsule 1 CAP PO ×2 (08:16→17:20)
[2023-05-18 08:58] LABS: Hematocrit 30.2 % (37-47); Hemoglobin 9.4 g/dL (12.0-15.0); Mean Corp Hgb Conc 31.1 g/dL (32-36); Mean Corpuscular Hgb 26.4 pg (27.0-32.0); Mean Corpuscular Volume 84.8 fL (81-99); Mean Platelet Vol. 8.8 fl (6.2-12.0); Platelet Count 472 K/mm3 (150-450); RBC Distribution Width CV 14.7 % (11.6-14.6); RBC Distribution Width SD 45.8 fl (35.1-43.9); Red Blood Count 3.56 M/mm3 (4.2-5.4); White Blood Count 11.8 K/mm3 (4.4-11.0)
[2023-05-18 09:28] LABS: Anion Gap 3 (5-15); BUN 20 mg/dL (7-18); BUN/Creat Ratio 28.9 RATIO (10-20); Calcium,Total 8.8 mg/dL (8.5-10.1); Chloride 104 mmol/L (98-107); Creatinine, Serum 0.69 mg/dL (0.55-1.02); EST Glomerular Filtration Rate 89 mL/min (>60); Est Glom Filt Rate - Afr Amer 108 mL/min (>60); Glucose 87 mg/dL (74-106); Potassium 4.1 mmol/L (3.5-5.1); Sodium Level 134 mmol/L (136-145)
[2023-05-18 10:00] VITALS: BP 123/57; PULSE 64; RESP 18; TEMP 36.8; O2SAT 97
--- NOTE | 2023-05-18 10:43 | PN.ORTHO_ITS ---
Subjective Subjective The patient was sitting in bed upon examination. Patient denies any chest pain, shortness of breath, dizziness, lightheadedness, nausea or vomiting, or calf pain. Pain is controlled on medications. No adverse overnight events. Patient overall is doing well this morning. She has not been up with therapy yet. Her pain has been adequately controlled. She has regular Mepilex dressing in which there is plan for incisional wound VAC. Patient has been up to the bathroom but no therapy at this point. Cultures were obtained intraoperatively. She is currently on doxycycline postoperatively. Objective Data Objective Data Vital Signs: Vital Signs Temp Pulse Resp BP Pulse Ox O2 Del Method O2 Flow Rate 98.1 F 60 16 124/57 H 100 Room Air 4 05/18/23 06:00 05/18/23 06:00 05/18/23 06:00 05/18/23 06:00 05/18/23 06:00 05/18/23 06:00 05/17/23 16:30 Oxygen Flow Rate (L/min) 4 Oxygen Delivery Method Room Air Weight: 56 kg Body Mass Index (BMI) 19.9 Intake & Output: Intake and Output for Last 24 Hours 05/16/23 05/17/23 05/18/23 23:59 23:59 23:59 Intake Total 2482 / 3082 1250 / 1250 Balance 2482 / 3082 1250 / 1250 Lab / Micro Data 05/18/23 08:15 05/18/23 08:15 Labs: Laboratory Results - last 24 hr 05/18/23 08:15: WBC 11.8 H, RBC 3.56 L, Hgb 9.4 L, Hct 30.2 L, MCV 84.8, MCH 26.4 L, MCHC 31.1 L, RDW Std Deviation 45.8 H, RDW Coeff of Melida 14.7 H, Plt Count 472 H, MPV 8.8, Sodium 134 L, Potassium 4.1, Chloride 104, Carbon Dioxide 27.0, Anion Gap 3 L, BUN 20 H, Creatinine 0.69, Estim Creat Clear Calc 59.50, Est GFR (MDRD) Af Amer 108, Est GFR (MDRD) Non-Af 89, BUN/Creatinine Ratio 28.9 H, Glucose 87, Calcium 8.8 Micro: Microbiology 05/17/23 13:08 Tissue - Knee Gram Stain - Final 05/17/23 13:08 Tissue - Knee Wound Culture - Preliminary 05/17/23 12:49 Tissue - Knee Gram Stain - Final 05/17/23 12:49 Tissue - Knee Wound Culture - Preliminary 05/17/23 12:41 Tissue - Knee Gram Stain - Final 05/17/23 12:41 Tissue - Knee Wound Culture - Preliminary No growth-Final to follow 05/05/23 08:44 Swab (Method) Nasal Screen MRSA/MSSA - Final Radiography Diagnostic Testing: Radiology Impression Knee X-Ray 05/17/23 16:03 IMPRESSION: Status post revision of total knee arthroplasty. Electronically Signed: Antonio Peter MD at 16:25 EST , Physical Exam Narrative Vital signs stable and afebrile. SCDs and JASON hose are in place bilaterally Patient is able to plantarflex and dorsiflex actively. Sensation is intact to light touch to saphenous, sural, superficial and deep peroneal, and tibial distribution. Dressing is clean dry and intact. Negative Homans bilaterally, negative signs and symptoms of DVT. Const alert, oriented x3 and no apparent distress Assessment & Plan Assessment/Plan (1) Status post revision of total replacement of right knee: PLAN: 1. S/P revision right total knee replacement distal femoral replacement and entire tibial component POD #1 2. Continue Pain Medications: Tylenol, meloxicam, and oxycodone. Do not take any other nonsteroidal anti-inflammatories while using meloxicam/Mobic. 3. DVT Prophylaxis: Take 81 mg aspirin twice daily for 4 weeks postoperatively for DVT prophylaxis. 4. PT/OT: Weightbearing as tolerated with walker 5. H & H: 9.4/30.2, asymptomatic. Monitoring patient's hemoglobin and hematocrit with postoperative anemia secondary to intraoperative blood loss versus dilutional component without any intra operative complications. At this time no treatment is required. Preoperatively patient was found to have drop in hemoglobin in which her hemoglobin/hematocrit preoperatively was 10.4/33.5. She was started on ferrous sulfate and folic acid. 6. Reactive leukocytosis: 11.8, Afebrile. Patient did receive Decadron intraoperatively. No clinical signs of infection. 7. Continue postoperative medical management per medicine 8. Currently on doxycycline for 2 weeks postoperatively. Microbiology wound and tissue specimens were reviewed in chart but are currently pending. I discussed with the patient potential side effects of doxycycline including sensitivity to the sunlight and increased risk of skin burn. Recommend patient take appropriate precautions. Also recommend patient to take probiotic while on the antibiotic. Patient voiced understanding agreement. 9. Wound: Patient currently has Mepilex dressing and plan will be for placement of incisional wound VAC for 1 week postoperatively due to the risk for drainage from extensive surgery and to help with wound healing. This was discussed with wound nurse and consult order will be placed. Plan will be for probable VAC via. 10. Encouraged Incentive Spirometry 11. Disposition: At this time patient is not ready for current discharge as we would like to make sure that we have cultures from the intraoperative microbiology. Patient is currently on doxycycline for 6 weeks postoperatively. Once we have been able to review cultures plan will be for possible discharge home as long as patient is medically stable and tolerates physical therapy. We will repeat lab work tomorrow. Possible discharge home tomorrow depending upon culture results. I have reviewed the [place] Automated Rx Reporting System (OARRS) report for this patient for refill pattern and other prescriber involvement as part of the appropriate surveillance for the provision of acute and chronic controlled medications. The report was requested and reviewed on the date of this entry and was considered in the prescribing process. This dictation was created using voice recognition software. Phonetic and/or grammatical errors may exist.
[2023-05-18] MEDS: Ferrous Sulfate 325 MG Tablet PO (11:51)
--- NOTE | 2023-05-18 12:18 | PCM.PN.HOSP ---
Subjective Subjective Doing well, no issues overnight. Pain is controlled Objective Data Objective Data Vital Signs: Vital Signs Temp Pulse Resp BP Pulse Ox O2 Del Method O2 Flow Rate 98.2 F 64 18 123/57 H 97 Room Air 4 05/18/23 10:00 05/18/23 10:00 05/18/23 10:00 05/18/23 10:00 05/18/23 10:00 05/18/23 10:00 05/17/23 16:30 Oxygen Flow Rate (L/min) 4 Oxygen Delivery Method Room Air Weight: 123 lb 7.342 oz Body Mass Index (BMI) 19.9 Intake & Output: Intake and Output for Last 24 Hours 05/17/23 05/18/23 05/19/23 03:59 03:59 03:59 Intake Total 3082 / 3082 650 / 650 Balance 3082 / 3082 650 / 650 Lab / Micro Data 05/19/23 05:20 05/18/23 08:15 Labs: Laboratory Results - last 24 hr 05/18/23 08:15: WBC 11.8 H, RBC 3.56 L, Hgb 9.4 L, Hct 30.2 L, MCV 84.8, MCH 26.4 L, MCHC 31.1 L, RDW Std Deviation 45.8 H, RDW Coeff of Meliad 14.7 H, Plt Count 472 H, MPV 8.8, Sodium 134 L, Potassium 4.1, Chloride 104, Carbon Dioxide 27.0, Anion Gap 3 L, BUN 20 H, Creatinine 0.69, Estim Creat Clear Calc 59.50, Est GFR (MDRD) Af Amer 108, Est GFR (MDRD) Non-Af 89, BUN/Creatinine Ratio 28.9 H, Glucose 87, Calcium 8.8 Micro: Microbiology 05/17/23 13:08 Tissue - Knee Gram Stain - Final 05/17/23 13:08 Tissue - Knee Wound Culture - Preliminary 05/17/23 12:49 Tissue - Knee Gram Stain - Final 05/17/23 12:49 Tissue - Knee Wound Culture - Preliminary 05/17/23 12:41 Tissue - Knee Gram Stain - Final 05/17/23 12:41 Tissue - Knee Wound Culture - Preliminary No growth-Final to follow 05/05/23 08:44 Swab (Method) Nasal Screen MRSA/MSSA - Final Radiography Diagnostic Testing: Radiology Impression Knee X-Ray 05/17/23 16:03 IMPRESSION: Status post revision of total knee arthroplasty. Electronically Signed: Antonio Peter MD at 16:25 EST , Physical Exam Narrative General: Alert, Oriented x3, Cooperative, No apparent distress HEENT: Atraumatic, PERRLA, EOMI, Normocephalic Oral: Moist Mucosa Neck: Supple, No JVD Lungs: Diminished, Normal air movement, No rhonchi, No wheeze, No rales Cardiovascular: Regular rate, Regular Rhythm, Normal S1, Normal S2, No murmurs Abdomen: Soft, Non Tender, Non-Distended, No Hepato-splenomegaly Extremities: No edema, Capillary Refill Less than 3 Seconds Skin: Dressing CDI Musculoskeletal: No Tenderness to Palpation of Joints or Extremities Neurological: No focal neurological deficits, Motor Exam 5/5 strength throughout, Sensory exam intact to light touch and pain Psych/Mental Status: Normal Affect, Appropriate Assessment & Plan Assessment/Plan (1) Status post revision of total replacement of right knee: PLAN: Plan 1. Status post revision of total knee replacement on the right ? Continue with doxycycline ? Cultures are pending, awaiting these prior to discharge ? Pain management per primary ? PT/OT 2. Hypothyroidism ? Stable ? Continue with Synthroid DVT: Per primary Will monitor peripherally, please do not hesitate to call Charges/Coding Visit Charges Inpatient E&M: 65917 Subs Hosp L2
[2023-05-18 14:03] VITALS: BP 110/47; PULSE 74; RESP 18; TEMP 36.6; O2SAT 100
[2023-05-18] MEDS: Doxycycline 100 MG CAPSULE PO ×2 (15:10→22:08)
--- NOTE | 2023-05-18 15:11 | WOUNDNOTE ---
wound photo: right knee
--- NOTE | 2023-05-18 15:50 | CASEMGMT ---
Face to Face with pt for initial transition planning/care coordination assessment. RN CM introduced self and role at [facility], pt voices understanding and consents to assessment. Pt is A&O x4 and answers all questions appropriately at this time. Pt lying in bed in no distress with friend Whitney at bedside. Pt agreeable to assessment with friend present. Care providers, pharmacy, and demographics verified/updated. Admitting Dx: Irrigation and debridement with revision PCP:Karina Specialists:olegario Christie; marvel Ng; Porter, eyes Preferred Pharmacy: [facility] Insurance: [employer] JOSEPH A Prescription Benefit: yes LNOK: Jostin Thorne, Living Arrangements: Pt lives with in a single story home with 3 steps to enter with a rail. Pt reports she was I in ADL's prior to surgery. Pt denies concerns at home. Transportation: Pt drives self and denies concerns with transportation. Pt will transport pt until she can drive again. DME:shoe horn, walker, crutches, elevated toilet seat HHC/SNF: [facility] in [facility] past, denies SNF stays Pt states no concerns with going home at time of dc. Pt states she has outpt therapy set up for 2/4 at [facility]. Pt states no further concerns/needs. CM to follow. Advised pt to ask CM if any further question/concerns/needs arise, voices understanding. Pt Goal: Home with outpt therapy set up Plan: Home with outpt therapy set up
[2023-05-18 20:15] VITALS: BP 115/57; PULSE 80; RESP 15; TEMP 37; O2SAT 96
[2023-05-19 03:29] VITALS: BP 129/56; PULSE 79; RESP 15; TEMP 36.7; O2SAT 96
[2023-05-19] MEDS: 0.9% Saline Lock 10 ML Syringe IV (03:45)
[2023-05-19] MEDS: Ketorolac 15 MG/ML Vial IV (03:45)
[2023-05-19 06:17] LABS: Hematocrit 28.4 % (37-47); Hemoglobin 9.1 g/dL (12.0-15.0); Mean Corpuscular Hgb 26.1 pg (27.0-32.0); Mean Corpuscular Volume 81.6 fL (81-99); Mean Platelet Vol. 9.1 fl (6.2-12.0); Platelet Count 482 K/mm3 (150-450); RBC Distribution Width CV 14.9 % (11.6-14.6); RBC Distribution Width SD 43.7 fl (35.1-43.9); Red Blood Count 3.48 M/mm3 (4.2-5.4); White Blood Count 9.6 K/mm3 (4.4-11.0)
[2023-05-19] MEDS: Levothyroxine 25 MCG TABLET PO (06:39)
[2023-05-19] MEDS: Acetaminophen 500 MG Tablet 1000 MG PO ×3 (06:40→20:41)
[2023-05-19] MEDS: Cholecalciferol (VIT D3) 25 MCG TABLET (1,000 UNITS) PO (09:19)
[2023-05-19] MEDS: Doxycycline 100 MG CAPSULE PO ×2 (09:19→20:45)
[2023-05-19] MEDS: Multivitamin (Healthy Eyes) Capsule 1 CAP PO ×2 (09:19→17:05)
[2023-05-19] MEDS: Aspirin 81 MG TAB.CHEW PO ×2 (09:19→17:05)
[2023-05-19] MEDS: Ascorbic Acid 500 MG Tablet 1000 MG PO (09:19)
[2023-05-19] MEDS: Senna/Docusate Sodium 1 Tablet 2 TABLET PO ×2 (09:20→20:41)
[2023-05-19] MEDS: Famotidine 20 MG Tablet PO (09:20)
[2023-05-19] MEDS: Meloxicam 7.5 MG Tablet PO ×2 (09:20→20:41)
[2023-05-19] MEDS: Ensure Surgery 237 ML LIQUID PO (09:22)
[2023-05-19 09:25] VITALS: BP 108/56; PULSE 80; RESP 18; TEMP 36.7; O2SAT 97
[2023-05-19] MEDS: Cefepime HCl 2 GM in 0.9% Normal Saline (100mL MB+) 100 ML IV ×2 (12:13→20:38)
[2023-05-19] MEDS: Ferrous Sulfate 325 MG Tablet PO (12:14)
--- NOTE | 2023-05-19 12:17 | PCM.PN.ORT ---
Subjective Subjective The patient was sitting in bed eating lunch upon examination. Patient denies any chest pain, shortness of breath, dizziness, lightheadedness, nausea or vomiting, or calf pain. Pain is controlled on medications. No adverse overnight events. Patient has been tolerating therapy very well. She has been up walking and working on exercises. Patient did have a incisional wound VAC placed by wound nurse yesterday. There is been no drainage or output in the unit. Cultures preliminary did show gram-negative kaleb and Pseudomonas. Infectious disease has been consulted for appropriate antibiotic and further treatment. Objective Data Objective Data Vital Signs: Vital Signs Temp Pulse Resp BP Pulse Ox O2 Del Method O2 Flow Rate 98.1 F 80 18 108/56 L 97 Room Air 4 05/19/23 09:25 05/19/23 09:25 05/19/23 09:25 05/19/23 09:25 05/19/23 09:25 05/19/23 09:25 05/17/23 16:30 Oxygen Flow Rate (L/min) 4 Oxygen Delivery Method Room Air Weight: 56 kg Body Mass Index (BMI) 19.9 Intake & Output: Intake and Output for Last 24 Hours 05/17/23 05/18/23 05/19/23 23:59 23:59 23:59 Intake Total 2482 / 3082 1250 / 1400 450 / 450 Balance 2482 / 3082 1250 / 1400 450 / 450 Lab / Micro Data 05/19/23 05:20 05/18/23 08:15 Labs: Laboratory Results - last 24 hr 05/19/23 05:20: WBC 9.6, RBC 3.48 L, Hgb 9.1 L, Hct 28.4 L, MCV 81.6, MCH 26.1 L, MCHC 32.0, RDW Std Deviation 43.7, RDW Coeff of Melida 14.9 H, Plt Count 482 H, MPV 9.1 Micro: Microbiology 05/17/23 13:08 Tissue - Knee Gram Stain - Final 05/17/23 13:08 Tissue - Knee Wound Culture - Preliminary Gram negative kaleb 05/17/23 13:08 Tissue - Knee Anaerobic Culture - Preliminary No growth in 48 hours. 05/17/23 12:49 Tissue - Knee Gram Stain - Final 05/17/23 12:49 Tissue - Knee Wound Culture - Preliminary GNR Poss Pseudomonas sp 05/17/23 12:49 Tissue - Knee Anaerobic Culture - Preliminary No growth in 48 hours. 05/17/23 12:41 Tissue - Knee Gram Stain - Final 05/17/23 12:41 Tissue - Knee Wound Culture - Preliminary No growth-Final to follow 05/17/23 12:41 Tissue - Knee Anaerobic Culture - Preliminary No growth in 48 hours. 05/05/23 08:44 Swab (Method) Nasal Screen MRSA/MSSA - Final Physical Exam Narrative Vital signs stable and afebrile. SCDs and JASON hose are in place bilaterally Patient is able to plantarflex and dorsiflex actively. Sensation is intact to light touch to saphenous, sural, superficial and deep peroneal, and tibial distribution. Incisional wound VAC in place without any drainage/output in the canister or tubing Negative Homans bilaterally, negative signs and symptoms of DVT. Const alert, oriented x3 and no apparent distress Assessment & Plan Assessment/Plan (1) Status post revision of total replacement of right knee: PLAN: 1. S/P revision right total knee replacement distal femoral replacement and entire tibial component POD #2 2. Continue Pain Medications: Tylenol, meloxicam, and oxycodone. Do not take any other nonsteroidal anti-inflammatories while using meloxicam/Mobic. 3. DVT Prophylaxis: Take 81 mg aspirin twice daily for 4 weeks postoperatively for DVT prophylaxis. 4. PT/OT: Weightbearing as tolerated with walker 5. H & H: 9.1/28.4, asymptomatic. Monitoring patient's hemoglobin and hematocrit with postoperative anemia secondary to intraoperative blood loss versus dilutional component without any intra operative complications. At this time no treatment is required. Preoperatively patient was found to have drop in hemoglobin in which her hemoglobin/hematocrit preoperatively was 10.4/33.5. She was started on ferrous sulfate and folic acid. Will repeat CBC and tomorrow 6. Reactive leukocytosis: Resolved currently 9.6, Afebrile. Patient did receive Decadron intraoperatively. 7. Continue postoperative medical management per medicine 8. Consult infectious disease: 2 out of 3 cultures revealed gram-negative possible Pseudomonas and gram-negative kaleb. Case was discussed with infectious disease and at this time will require PICC line and final antibiotics will be determined after review of cultures on May 22, 2023. I would defer any further adjustments with antibiotics to infectious disease. Appreciate consultation and input for further treatment. Patient is aware and questions were answered to the best my ability. 9. Wound: Incisional wound VAC currently in place for 1 week postoperatively due to the risk for drainage from extensive surgery and help with wound healing. There is been no output or drainage in the canister or tubing at this time. Plan will be for removal of the incisional wound VAC on May 25, 2023. 10. Encouraged Incentive Spirometry 11. Disposition: Due to patient's recent cultures infectious disease has had to been consulted. Appreciate recommendations from antibiotic standpoint. Patient will require IV antibiotics. Case management will be involved with appropriate discharge planning. May require home health upon discharge once antibiotics have been established. We will continue with physical therapy as well as above medications. Repeat lab work tomorrow. I have reviewed the [place] Automated Rx Reporting System (OARRS) report for this patient for refill pattern and other prescriber involvement as part of the appropriate surveillance for the provision of acute and chronic controlled medications. The report was requested and reviewed on the date of this entry and was considered in the prescribing process. This dictation was created using voice recognition software. Phonetic and/or grammatical errors may exist.
--- NOTE | 2023-05-19 13:36 | CON.PCM.ID_ITS ---
Assessment & Plan Assessment/Plan (1) Infection of prosthetic right knee joint: PLAN: Surg cx x2 with GNR. Will start cefepime, will monitor. Ok to keep doxy for now. Thank you, d/w ortho HPI Consult Data Date of Consult: 05/19/23 HPI Narrative Reason for Consultation: PJI HPI Narrative: SALVATORE GAMBOA, is a 67 F who presented for R knee revision. Multiple surgeries on the knee in the past, including picc and 6 weeks iv abx around 2015. Reports over past few weeks/months, worsening R knee pain, intermittent swelling. No fever or chills, no drainage, no redness. Saw Dr. Christie, taken to OR 05/17/23 for revision R knee. Feeling ok this AM, pain controlled. Full ROS performed and neg except as noted above. [facility] Medical History Arthritis Cancer History of edema History of pain when walking Hypercholesteremia Hypothyroid Migraine headache Osteopenia Septic arthritis of knee, right Home Medications ascorbic acid (vitamin C) 1,000 mg tablet (Vitamin C) 1,000 mg PO DAILY 12/03/15 [History Last Taken 11/28/15] fluticasone propionate 50 mcg/actuation nasal spray,suspension 2 spray PRN PRN Allergies 12/03/15 [History Last Taken Unknown] acetaminophen 500 mg tablet (Acetaminophen Extra Strength) 1,000 mg PO Q6H PRN pain 05/03/23 [History Last Taken Unknown] levothyroxine 25 mcg tablet 25 mcg PO DAILY thyroid 05/03/23 [History Last Taken 05/17/23 06:30] vitamins A,C,X-[id number]-[id number] 4,296 mcg-226 mg-90 mg capsule (PreserVision AREDS) 1 cap PO BID 05/03/23 [History Last Taken Unknown] albuterol sulfate 90 mcg/actuation aerosol inhaler 2 inh inhalation Q4-6H PRN 05/10/23 [History Last Taken Unknown] biotin 5 mg capsule 5 mg PO DAILY 05/10/23 [History Last Taken Unknown] cholecalciferol (vitamin D3) 25 mcg (1,000 unit) tablet (Vitamin D3) 1,000 unit PO DAILY 05/10/23 [History Last Taken Unknown] ferrous sulfate 325 mg (65 mg iron) tablet 325 mg PO DAILY 05/11/23 [History Last Taken Unknown] folic acid 1 mg tablet 1 mg PO DAILY 05/11/23 [History Last Taken Unknown] Allergy/AdvReac Type Severity Reaction Status Date / Time clindamycin Allergy Unknown PT UNSURE Verified 05/17/23 09:24 OF REACTION venlafaxine [From Effexor] AdvReac Severe Nausea Verified 05/17/23 09:24 escitalopram [From Lexapro] AdvReac Intermediate increased Verified 05/17/23 09:24 anxiety Sulfa (Sulfonamide AdvReac Intermediate Nausea Verified 05/17/23 09:24 Antibiotics) Family History Brother Hypertension Father Hypertension Mother Hypertension Myocardial infarction Surgical History Hx of arthroscopic knee surgery Hx of colonoscopy Hx of lymph node excision Hx of oral surgery Hx of total knee arthroplasty Hx of total knee arthroplasty Hx of tubal ligation Social History (Updated 05/11/23 @ 13:14 by Flory Whipple) Smoking Status: Never smoker alcohol intake: current alcohol intake frequency: holidays/special occasions only substance use type: does not use caffeine: Yes Type: coffee Number of servings: 2 and tea Number of servings: 1 Physical Exam Const alert, oriented x3 and no apparent distress General Appearance: cooperative HEENT normocephalic and head/scalp atraumatic Eyes PERRL and EOMs intact bilaterally Neck supple and No nodes Resp normal air movement and clear to auscultation bilaterally Cardio regular rate and regular rhythm GI soft to palpation, non-tender and non-distended Skin Skin Narrative: RLE wrapped Neuro CN's II-XII intact bilaterally Lab / Micro Data Attestation: I reviewed the patient's lab results. 05/19/23 05:20 05/18/23 08:15 Labs: Laboratory Results - last 24 hr 05/19/23 05:20: WBC 9.6, RBC 3.48 L, Hgb 9.1 L, Hct 28.4 L, MCV 81.6, MCH 26.1 L , MCHC 32.0, RDW Std Deviation 43.7, RDW Coeff of Melida 14.9 H, Plt Count 482 H, MPV 9.1 Micro: Microbiology 05/17/23 13:08 Tissue - Knee Gram Stain - Final 05/17/23 13:08 Tissue - Knee Wound Culture - Preliminary Gram negative kaleb 05/17/23 13:08 Tissue - Knee Anaerobic Culture - Preliminary No growth in 48 hours. 05/17/23 12:49 Tissue - Knee Gram Stain - Final 05/17/23 12:49 Tissue - Knee Wound Culture - Preliminary GNR Poss Pseudomonas sp 05/17/23 12:49 Tissue - Knee Anaerobic Culture - Preliminary No growth in 48 hours. 05/17/23 12:41 Tissue - Knee Gram Stain - Final 05/17/23 12:41 Tissue - Knee Wound Culture - Preliminary No growth-Final to follow 05/17/23 12:41 Tissue - Knee Anaerobic Culture - Preliminary No growth in 48 hours.
[2023-05-19 14:20] VITALS: BP 114/66; PULSE 84; RESP 16; TEMP 36.3; O2SAT 100
--- NOTE | 2023-05-19 14:31 | CASEMGMT ---
Addendum entered by Nupur Riley 05/19/23 15:26: ZOË MUSA into pt room per request of pt , pt has chosen [facility] with no other options at this time. Pt is aware to look at other options in case this agency is unable to accept. They verbalize understanding. DC assistant infant teacher to send referral to [facility]. Addendum entered by Nupur Riley 05/19/23 14:54: Provided pt with a list of [employer] created by dc assistant infant teacher. Pt to review and call ZOË MUSA once decision is made. Original Note: ZOË MUSA made aware pt will require picc line and IV atb at [place] and cx are pending. ZOË MUSA into pt room, she will cancel her outpt therapy set up for Monday. Pt states she has done infusions at home in the past and she would like to do this again. She cannot recall the name of the HH although thinks it was [facility]. DC assistant infant teacher to create list. Provided pt with a verbal in network list of In[facility] Companies, pt chose [facility]. DC assistant infant teacher to send referral to [facility] at this time for benefit verification.
--- NOTE | 2023-05-19 14:44 | CASEMGMT ---
Discharge Planning A list of?HH providers including quality and resource use data and consistent with the patient's preferred geographic region, medical needs, and insurance network was created in [facility] Guide.? This list was provided to the RN LENCHO. Erin Sarkar, Discharge Planning Asst.
--- NOTE | 2023-05-19 14:53 | CASEMGMT ---
Discharge Planning [place] referral sent via [facility] to [facility]. Erin Sarkar, Discharge Planning Asst.
--- NOTE | 2023-05-19 15:34 | CASEMGMT ---
Discharge Planning HH referral sent to [facility] via [facility]. Erin Sarkar, Discharge Planning Asst.
[2023-05-19 20:27] VITALS: BP 130/64; PULSE 83; RESP 16; TEMP 36.8; O2SAT 100
[2023-05-20 02:01] VITALS: BP 117/76; PULSE 91; RESP 16; TEMP 36.6; O2SAT 98
[2023-05-20] MEDS: Levothyroxine 25 MCG TABLET PO (05:18)
[2023-05-20] MEDS: Acetaminophen 500 MG Tablet 1000 MG PO ×3 (05:18→21:21)
[2023-05-20 07:24] LABS: Hematocrit 28.8 % (37-47); Hemoglobin 9.2 g/dL (12.0-15.0); Mean Corp Hgb Conc 31.9 g/dL (32-36); Mean Corpuscular Hgb 26.4 pg (27.0-32.0); Mean Corpuscular Volume 82.8 fL (81-99); Mean Platelet Vol. 8.8 fl (6.2-12.0); Platelet Count 463 K/mm3 (150-450); RBC Distribution Width CV 14.9 % (11.6-14.6); RBC Distribution Width SD 44.4 fl (35.1-43.9); Red Blood Count 3.48 M/mm3 (4.2-5.4)
[2023-05-20 07:27] LABS: Absolute Lymphocyte Count 0.93 X10^3/uL (0.83-4.51); Absolute Neutrophil Count 6.4 X10^3/uL (2.0-7.7); Basophil# 0.03 X10^3/uL; Basophil% 0.3 % (0-1); Eosinophil# 0.45 X10^3/uL; Eosinophils% 5.1 % (0-5); Hemoglobin 9.2 g/dL (12.0-15.0); Lymphocyte # 0.93 X10^3/ul (0.83-4.51); Lymphocyte % 10.6 % (19-41); Mean Corp Hgb Conc 31.7 g/dL (32-36); Mean Corpuscular Hgb 26.4 pg (27.0-32.0); Mean Corpuscular Volume 83.1 fL (81-99); Mean Platelet Vol. 8.9 fl (6.2-12.0); Monocyte# 0.96 X10^3/uL; Monocyte% 10.9 % (0-10); NRBC Flagged by Analyzer 0 % (0-5); Neutrophil # 6.38 X10^3/uL (2.7-7.7); Neutrophil % 72.8 % (47-70); Platelet Count 463 K/mm3 (150-450); RBC Distribution Width CV 14.9 % (11.6-14.6); RBC Distribution Width SD 44.5 fl (35.1-43.9); Red Blood Count 3.49 M/mm3 (4.2-5.4); White Blood Count 8.8 K/mm3 (4.4-11.0)
[2023-05-20 07:59] VITALS: BP 135/64; PULSE 78; RESP 18; TEMP 36.5; O2SAT 81
[2023-05-20] MEDS: Ensure Surgery 237 ML LIQUID PO (08:11)
[2023-05-20] MEDS: Cholecalciferol (VIT D3) 25 MCG TABLET (1,000 UNITS) PO (08:12)
[2023-05-20] MEDS: Senna/Docusate Sodium 1 Tablet 2 TABLET PO (08:13)
[2023-05-20] MEDS: Meloxicam 7.5 MG Tablet PO ×2 (08:13→21:20)
[2023-05-20] MEDS: Multivitamin (Healthy Eyes) Capsule 1 CAP PO ×2 (08:13→17:39)
[2023-05-20] MEDS: Famotidine 20 MG Tablet PO (08:13)
[2023-05-20] MEDS: Aspirin 81 MG TAB.CHEW PO ×2 (08:14→17:39)
[2023-05-20] MEDS: Ascorbic Acid 500 MG Tablet 1000 MG PO (08:14)
[2023-05-20] MEDS: 0.9% Saline Lock 10 ML Syringe IV (09:22)
[2023-05-20] MEDS: 0.9% Normal Saline (250mL Bag) 250 ML 15 ML IV (09:22)
[2023-05-20] MEDS: Cefepime HCl 2 GM in 0.9% Normal Saline (100mL MB+) 100 ML IV ×2 (09:22→21:20)
--- NOTE | 2023-05-20 09:51 | PCM.PN.ORT ---
Subjective Subjective The patient was sitting in bed upon examination. Patient denies any chest pain, shortness of breath, dizziness, lightheadedness, nausea or vomiting, or calf pain. Pain is controlled on medications. No adverse overnight events. Patient states the pain has been well-controlled. She has been working with physical therapy. Infectious disease currently on board for management of antibiotics. Infectious disease is waiting for final culture results on Monday to determine IV antibiotics. She will require IV antibiotics for 6 weeks. Objective Data Objective Data Vital Signs: Vital Signs Temp Pulse Resp BP Pulse Ox O2 Del Method O2 Flow Rate 97.7 F L 78 18 135/64 H 81 Room Air 4 05/20/23 07:59 05/20/23 07:59 05/20/23 07:59 05/20/23 07:59 05/20/23 07:59 05/20/23 07:59 05/17/23 16:30 Oxygen Flow Rate (L/min) 4 Oxygen Delivery Method Room Air Weight: 56 kg Body Mass Index (BMI) 19.9 Intake & Output: Intake and Output for Last 24 Hours 05/18/23 05/19/23 05/20/23 23:59 23:59 23:59 Intake Total 1250 / 1400 650 / 650 700 / 700 Balance 1250 / 1400 650 / 650 700 / 700 Lab / Micro Data 05/20/23 02:00 05/18/23 08:15 Labs: Laboratory Results - last 24 hr 05/20/23 02:00: WBC 9.0 05/20/23 02:00: WBC 8.8, RBC 3.48 L 05/20/23 02:00: RBC 3.49 L, Hgb 9.2 L 05/20/23 02:00: Hgb 9.2 L, Hct 28.8 L 05/20/23 02:00: Hct 29.0 L, MCV 82.8 05/20/23 02:00: MCV 83.1, MCH 26.4 L 05/20/23 02:00: MCH 26.4 L, MCHC 31.9 L 05/20/23 02:00: MCHC 31.7 L, RDW Std Deviation 44.4 H 05/20/23 02:00: RDW Std Deviation 44.5 H, RDW Coeff of Mel[place] 14.9 H 05/20/23 02:00: RDW Coeff of [place] 14.9 H, Plt Count 463 H 05/20/23 02:00: Plt Count 463 H, MPV 8.8 05/20/23 02:00: MPV 8.9, Immature Gran % (Auto) 0.300, Neut % (Auto) 72.8 H, Lymph % (Auto) 10.6 L, [place] % (Auto) 10.9 H, Eos % (Auto) 5.1 H, Baso % (Auto) 0.3, Absolute Neuts (auto) 6.4, Absolute Lymphs (auto) 0.93, Nucleated RBC % 0 Micro: Microbiology 05/17/23 13:08 Tissue - Knee Gram Stain - Final 05/17/23 13:08 Tissue - Knee Wound Culture - Final Pseudomonas aeruginosa 05/17/23 13:08 Tissue - Knee Anaerobic Culture - Preliminary No growth in 48 hours. 05/17/23 12:49 Tissue - Knee Gram Stain - Final 05/17/23 12:49 Tissue - Knee Wound Culture - Final Pseudomonas aeruginosa 05/17/23 12:49 Tissue - Knee Anaerobic Culture - Preliminary No growth in 48 hours. 05/17/23 12:41 Tissue - Knee Gram Stain - Final 05/17/23 12:41 Tissue - Knee Wound Culture - Preliminary 05/17/23 12:41 Tissue - Knee Anaerobic Culture - Preliminary No growth in 48 hours. 05/05/23 08:44 Swab (Method) Nasal Screen MRSA/MSSA - Final Physical Exam Narrative Vital signs stable and afebrile. SCDs and JASON hose are in place bilaterally Patient is able to plantarflex and dorsiflex actively. Sensation is intact to light touch to saphenous, sural, superficial and deep peroneal, and tibial distribution. Incisional wound VAC in place with no drainage/output in tubing or canister Negative Homans bilaterally, negative signs and symptoms of DVT. Const alert, oriented x3 and no apparent distress Assessment & Plan Assessment/Plan (1) Status post revision of total replacement of right knee: PLAN: 1. S/P revision right total knee replacement distal femoral replacement and entire tibial component POD #3 2. Continue Pain Medications: Tylenol, meloxicam, and oxycodone. Do not take any other nonsteroidal anti-inflammatories while using meloxicam/Mobic. 3. DVT Prophylaxis: Take 81 mg aspirin twice daily for 4 weeks postoperatively for DVT prophylaxis. Patient denies past history of DVT or pulmonary embolism 4. PT/OT: Weightbearing as tolerated with walker 5. H & H: Stable currently 9.2/29.0, asymptomatic. Monitoring patient's hemoglobin and hematocrit with postoperative anemia secondary to intraoperative blood loss versus dilutional component without any intra operative complications. At this time no treatment is required. Preoperatively patient was found to have drop in hemoglobin in which her hemoglobin/hematocrit preoperatively was 10.4/33.5. She continue with ferrous sulfate and folic acid. 6. Continue postoperative medical management per medicine 7. Consult infectious disease: 2 out of 3 cultures revealed Pseudomonas aerouginosa on the tibial membrane and lateral gutter. Case was discussed with infectious disease and at this time will require PICC line and final antibiotics will be determined after review of cultures on May 22, 2023. Currently on cefepime and doxycycline. I would defer any further adjustments with antibiotics to infectious disease. Appreciate consultation and input for further treatment. 8. Wound: Incisional wound VAC currently in place for 1 week postoperatively due to the risk for drainage from extensive surgery and help with wound healing. There is been no output or drainage in the canister or tubing at this time. Plan will be for removal of the incisional wound VAC on May. 9. Encouraged Incentive Spirometry 10. Disposition: Due to patient's recent cultures infectious disease was consulted. Appreciate recommendations from antibiotic standpoint. Patient will require IV antibiotics and PICC line. Patient's pain has been well-controlled. Case management will be involved with appropriate discharge planning with home health for antibiotic administration and physical therapy. We will need to cancel patient's outpatient physical therapy. We will continue with physical therapy for range of motion and strengthening as well as above medications for pain and DVT prophylaxis. I have reviewed the [place] Automated Rx Reporting System (OARRS) report for this patient for refill pattern and other prescriber involvement as part of the appropriate surveillance for the provision of acute and chronic controlled medications. The report was requested and reviewed on the date of this entry and was considered in the prescribing process. This dictation was created using voice recognition software. Phonetic and/or grammatical errors may exist.
[2023-05-20] MEDS: Doxycycline 100 MG CAPSULE PO ×2 (10:38→21:20)
[2023-05-20] MEDS: Ferrous Sulfate 325 MG Tablet PO (13:07)
[2023-05-20 13:49] VITALS: BP 116/64; PULSE 84; RESP 18; TEMP 36.8; O2SAT 98
[2023-05-20 14:52] VITALS: PULSE 80
--- NOTE | 2023-05-20 15:39 | CASEMGMT ---
[facility] declined pt for services. RN CM into pt room, pt made aware. Pt has chosen the following for next options for HHC. [facility], [facility] and [facility]. She is aware that referrals will be made on Monday for this.
[2023-05-20] MEDS: Ondansetron 4 MG/2 ML Vial IV (21:16)
[2023-05-20 21:23] VITALS: BP 108/75; PULSE 74; RESP 16; TEMP 37.2; O2SAT 99
[2023-05-21] MEDS: Acetaminophen 500 MG Tablet 1000 MG PO ×3 (05:24→20:54)
[2023-05-21] MEDS: Levothyroxine 25 MCG TABLET PO (05:24)
[2023-05-21 05:26] VITALS: BP 123/69; PULSE 81; RESP 16; TEMP 36.8; O2SAT 100
[2023-05-21 08:56] VITALS: BP 109/57; PULSE 76; RESP 18; TEMP 36.6; O2SAT 99
[2023-05-21] MEDS: Meloxicam 7.5 MG Tablet PO ×2 (09:00→20:54)
[2023-05-21] MEDS: Famotidine 20 MG Tablet PO (09:00)
[2023-05-21] MEDS: Multivitamin (Healthy Eyes) Capsule 1 CAP PO ×2 (09:00→16:41)
[2023-05-21] MEDS: Cholecalciferol (VIT D3) 25 MCG TABLET (1,000 UNITS) PO (09:00)
[2023-05-21] MEDS: Doxycycline 100 MG CAPSULE PO ×2 (09:00→20:54)
[2023-05-21] MEDS: Ascorbic Acid 500 MG Tablet 1000 MG PO (09:00)
[2023-05-21] MEDS: Aspirin 81 MG TAB.CHEW PO ×2 (09:01→16:41)
[2023-05-21] MEDS: Cefepime HCl 2 GM in 0.9% Normal Saline (100mL MB+) 100 ML IV ×2 (10:17→20:53)
[2023-05-21] MEDS: 0.9% Saline Lock 10 ML Syringe IV (10:17)
--- NOTE | 2023-05-21 10:34 | PN.HOSP_ITS ---
Subjective Subjective Doing well, hemoglobin stable Objective Data Objective Data Vital Signs: Vital Signs Temp Pulse Resp BP Pulse Ox O2 Del Method O2 Flow Rate 97.9 F 76 18 109/57 L 99 Room Air 4 05/21/23 08:56 05/21/23 08:56 05/21/23 08:56 05/21/23 08:56 05/21/23 08:56 05/21/23 08:56 05/17/23 16:30 Oxygen Flow Rate (L/min) 4 Oxygen Delivery Method Room Air Weight: 123 lb 7.342 oz Body Mass Index (BMI) 19.9 Intake & Output: Intake and Output for Last 24 Hours 05/20/23 05/21/23 05/22/23 03:59 03:59 03:59 Intake Total 500 / 500 1500 / 1500 650 / 650 Balance 500 / 500 1500 / 1500 650 / 650 Lab / Micro Data 05/20/23 02:00 05/18/23 08:15 Micro: Microbiology 05/17/23 12:41 Tissue - Knee Gram Stain - Final 05/17/23 12:41 Tissue - Knee Wound Culture - Preliminary GNR Poss Pseudomonas sp 05/17/23 12:41 Tissue - Knee Anaerobic Culture - Preliminary No growth in 48 hours. 05/17/23 13:08 Tissue - Knee Gram Stain - Final 05/17/23 13:08 Tissue - Knee Wound Culture - Final Pseudomonas aeruginosa 05/17/23 13:08 Tissue - Knee Anaerobic Culture - Preliminary No growth in 48 hours. 05/17/23 12:49 Tissue - Knee Gram Stain - Final 05/17/23 12:49 Tissue - Knee Wound Culture - Final Pseudomonas aeruginosa 05/17/23 12:49 Tissue - Knee Anaerobic Culture - Preliminary No growth in 48 hours. 05/05/23 08:44 Swab (Method) Nasal Screen MRSA/MSSA - Final Physical Exam Narrative General: Alert, Oriented x3, Cooperative, No apparent distress HEENT: Atraumatic, PERRLA, EOMI, Normocephalic Oral: Moist Mucosa Neck: Supple, No JVD Lungs: Diminished, Normal air movement, No rhonchi, No wheeze, No rales Cardiovascular: Regular rate, Regular Rhythm, Normal S1, Normal S2, No murmurs Abdomen: Soft, Non Tender, Non-Distended, No Hepato-splenomegaly Extremities: No edema, Capillary Refill Less than 3 Seconds Skin: Dressing CDI Musculoskeletal: No Tenderness to Palpation of Joints or Extremities Neurological: No focal neurological deficits, Motor Exam 5/5 strength thro ughout, Sensory exam intact to light touch and pain Psych/Mental Status: Normal Affect, Appropriate Assessment & Plan Assessment/Plan (1) Status post revision of total replacement of right knee: PLAN: Plan 1. Status post revision of total knee replacement on the right ? Continue with doxycycline and cefepime ? Cultures demonstrate Pseudomonas, infectious disease was consulted ? Pain management per primary ? PT/OT 2. Hypothyroidism ? Stable ? Continue with Synthroid DVT: Per primary Will sign off please call if any issues Charges/Coding Visit Charges Inpatient E&M: 68203 Subs Hosp L2
[2023-05-21] MEDS: Ferrous Sulfate 325 MG Tablet PO (11:23)
--- NOTE | 2023-05-21 14:01 | PCM.PN.ORT ---
Subjective Subjective Patient is doing well. No acute events overnight. She remains comfortable. Has been working on some range of motion with physical therapy. She is tolerating medications well. A third culture did return positive for Pseudomonas making 3 out of 3 positive cultures for Pseudomonas today. Objective Data Objective Data Vital Signs: Vital Signs Temp Pulse Resp BP Pulse Ox O2 Del Method O2 Flow Rate 97.9 F 76 18 109/57 L 99 Room Air 4 05/21/23 08:56 05/21/23 08:56 05/21/23 08:56 05/21/23 08:56 05/21/23 08:56 05/21/23 08:56 05/17/23 16:30 Oxygen Flow Rate (L/min) 4 Oxygen Delivery Method Room Air Weight: 123 lb 7.342 oz Body Mass Index (BMI) 19.9 Intake & Output: Intake and Output for Last 24 Hours 05/19/23 05/20/23 05/21/23 23:59 23:59 23:59 Intake Total 650 / 650 1500 / 1500 750 / 750 Balance 650 / 650 1500 / 1500 750 / 750 Lab / Micro Data Attestation: I reviewed the patient's lab results. 05/20/23 02:00 05/18/23 08:15 Micro: Microbiology 05/17/23 12:41 Tissue - Knee Gram Stain - Final 05/17/23 12:41 Tissue - Knee Wound Culture - Preliminary GNR Poss Pseudomonas sp 05/17/23 12:41 Tissue - Knee Anaerobic Culture - Preliminary No growth in 48 hours. 05/17/23 13:08 Tissue - Knee Gram Stain - Final 05/17/23 13:08 Tissue - Knee Wound Culture - Final Pseudomonas aeruginosa 05/17/23 13:08 Tissue - Knee Anaerobic Culture - Preliminary No growth in 48 hours. 05/17/23 12:49 Tissue - Knee Gram Stain - Final 05/17/23 12:49 Tissue - Knee Wound Culture - Final Pseudomonas aeruginosa 05/17/23 12:49 Tissue - Knee Anaerobic Culture - Preliminary No growth in 48 hours. 05/05/23 08:44 Swab (Method) Nasal Screen MRSA/MSSA - Final Physical Exam Const alert, oriented x3 and no apparent distress Extremity Extremity Narrative: Right lower extremity: Flexion to 30 degrees. 4 of 5 knee extension strength. 10 degree extensor lag. Wound VAC remains clean dry and intact. No drainage in the tubing. Just over the patella area where there was the most tension with closure there is some ecchymosis and reactive erythema. Assessment & Plan Assessment/Plan (1) Status post revision of total replacement of right knee: PLAN: 1. S/P revision right total knee replacement distal femoral replacement and entire tibial component POD #4 2. Continue Pain Medications: Tylenol, meloxicam, and oxycodone. Do not take any other nonsteroidal anti-inflammatories while using meloxicam/Mobic. 3. DVT Prophylaxis: Take 81 mg aspirin twice daily for 4 weeks postoperatively for DVT prophylaxis. Patient denies past history of DVT or pulmonary embolism 4. PT/OT: Weightbearing as tolerated with walker, range of motion and eccentric strengthening 5. H & H: Stable currently asymptomatic. Continue with ferrous sulfate and folic acid. 6. Continue postoperative medical management per medicine 7. Consult infectious disease: Now 3 out of 3 cultures revealed Pseudomonas aerouginosa. Sensitivity findings show pansensitive. Patient will require PICC line and final antibiotics will be determined after review of cultures on May 22, 2023. Currently on cefepime and doxycycline. I would defer any further adjustments with antibiotics to infectious disease. Appreciate consultation and input for further treatment. We did retain the patient's longstem femoral component which was well-fixed. At this time, will likely need to consider potential for chronic suppressive antibiotics due to retention of implants. 8. Wound: Incisional wound VAC currently in place for 1 week postoperatively due to the risk for drainage from extensive surgical history. There is been no output or drainage in the canister or tubing at this time. Plan will be for removal of the incisional wound VAC on May versus changing prior to discharge with an additional week of use. 9. Encouraged Incentive Spirometry 10. Disposition: Due to patient's recent cultures infectious disease was consulted. Appreciate recommendations from antibiotic standpoint. Patient will require IV antibiotics and PICC line. Patient's pain has been well-controlled. Case management will be involved with appropriate discharge planning with home health for antibiotic administration and physical therapy. We will continue with physical therapy for range of motion and strengthening as well as above medications for pain and DVT prophylaxis. We did discuss at length potential for extensor lag. I have reviewed the [place] Automated Rx Reporting System (OARRS) report for this patient for refill pattern and other prescriber involvement as part of the appropriate surveillance for the provision of acute and chronic controlled medications. The report was requested and reviewed on the date of this entry and was considered in the prescribing process. This dictation was created using voice recognition software. Phonetic and/or grammatical errors may exist. (2) Infection of prosthetic right knee joint: PLAN: See above
[2023-05-21 14:54] VITALS: BP 128/76; PULSE 70; RESP 18; TEMP 37.1; O2SAT 99
[2023-05-21 20:48] VITALS: BP 110/59; PULSE 81; RESP 16; TEMP 37.1; O2SAT 94
[2023-05-22 06:17] LABS: Absolute Lymphocyte Count 1.13 X10^3/uL (0.83-4.51); Absolute Neutrophil Count 5.1 X10^3/uL (2.0-7.7); Basophil# 0.04 X10^3/uL; Basophil% 0.5 % (0-1); Eosinophil# 0.89 X10^3/uL; Eosinophils% 11.1 % (0-5); Hematocrit 30.3 % (37-47); Hemoglobin 9.5 g/dL (12.0-15.0); Lymphocyte # 1.13 X10^3/ul (0.83-4.51); Lymphocyte % 14.1 % (19-41); Mean Corp Hgb Conc 31.4 g/dL (32-36); Mean Corpuscular Hgb 26.1 pg (27.0-32.0); Mean Corpuscular Volume 83.2 fL (81-99); Mean Platelet Vol. 8.9 fl (6.2-12.0); Monocyte# 0.88 X10^3/uL; NRBC Flagged by Analyzer 0 % (0-5); Neutrophil # 5.06 X10^3/uL (2.7-7.7); Neutrophil % 63.1 % (47-70); Platelet Count 517 K/mm3 (150-450); RBC Distribution Width CV 14.7 % (11.6-14.6); RBC Distribution Width SD 44.6 fl (35.1-43.9); Red Blood Count 3.64 M/mm3 (4.2-5.4)
[2023-05-22 06:18] VITALS: BP 123/57; PULSE 82; RESP 16; TEMP 36.8; O2SAT 98
[2023-05-22] MEDS: Levothyroxine 25 MCG TABLET PO (06:22)
[2023-05-22] MEDS: Acetaminophen 500 MG Tablet 1000 MG PO ×2 (06:22→13:50)
[2023-05-22 06:50] LABS: Anion Gap 2 (5-15); BUN 18 mg/dL (7-18); BUN/Creat Ratio 32.9 RATIO (10-20); Calcium,Total 9.1 mg/dL (8.5-10.1); Chloride 103 mmol/L (98-107); Creatinine, Serum 0.55 mg/dL (0.55-1.02); EST Glomerular Filtration Rate 117 mL/min (>60); Est Glom Filt Rate - Afr Amer 142 mL/min (>60); Glucose 97 mg/dL (74-106); Potassium 4.5 mmol/L (3.5-5.1); Sodium Level 134 mmol/L (136-145)
--- NOTE | 2023-05-22 09:41 | CASEMGMT ---
Addendum entered by Erin Sarkar 05/22/23 12:18: [facility] declined referral d/t being out of network. [facility], [facility], and [facility] all declined d/t limited staffing. [facility] accepted. RN CM updated. Erin Sarkar, Discharge Planning Asst. Original Note: Discharge Planning HH referral sent via [facility] to [facility], [facility], and [facility]. Erin Sarkar, Discharge Planning Asst.
[2023-05-22 10:22] VITALS: BP 105/57; PULSE 80; RESP 18; TEMP 36.8; O2SAT 97
[2023-05-22] MEDS: Senna/Docusate Sodium 1 Tablet 2 TABLET PO (10:24)
[2023-05-22] MEDS: Ascorbic Acid 500 MG Tablet 1000 MG PO (10:24)
[2023-05-22] MEDS: Famotidine 20 MG Tablet PO (10:24)
[2023-05-22] MEDS: Meloxicam 7.5 MG Tablet PO (10:25)
[2023-05-22] MEDS: Cefepime HCl 2 GM in 0.9% Normal Saline (100mL MB+) 100 ML IV ×2 (10:25→17:27)
[2023-05-22] MEDS: Multivitamin (Healthy Eyes) Capsule 1 CAP PO ×2 (10:25→16:36)
[2023-05-22] MEDS: Doxycycline 100 MG CAPSULE PO (10:25)
[2023-05-22] MEDS: Cholecalciferol (VIT D3) 25 MCG TABLET (1,000 UNITS) PO (10:26)
[2023-05-22] MEDS: 0.9% Saline Lock 10 ML Syringe IV (10:27)
[2023-05-22] MEDS: Aspirin 81 MG TAB.CHEW PO ×2 (10:27→16:36)
--- NOTE | 2023-05-22 11:41 | PCM.PN.ORT ---
Subjective Subjective Patient is doing well today. No acute events overnight. Patient has been ambulating with staff around the hallways. She has been tolerating physical therapy. She reports only mild pain with weightbearing. Final culture confirmed as Pseudomonas aeruginosa making it 3 out of 3. Case was discussed with infectious disease will be discharged on cefepime. Will plan to DC the doxycycline. Also discussed potential for chronic suppression. Objective Data Objective Data Vital Signs: Vital Signs Temp Pulse Resp BP Pulse Ox O2 Del Method O2 Flow Rate 98.2 F 80 18 105/57 L 97 Room Air 4 05/22/23 10:05/22/23 10:05/22/23 10:05/22/23 10:05/22/23 10:05/22/23 10:05/17/23 16:30 Oxygen Flow Rate (L/min) 4 Oxygen Delivery Method Room Air Weight: 123 lb 7.342 oz Body Mass Index (BMI) 19.9 Intake & Output: Intake and Output for Last 24 Hours 05/20/23 05/21/23 05/22/23 23:59 23:59 23:59 Intake Total 1500 / 1500 850 / 850 100 / 100 Balance 1500 / 1500 850 / 850 100 / 100 Lab / Micro Data Attestation: I reviewed the patient's lab results. 05/22/23 05:44 05/22/23 05:44 Labs: Laboratory Results - last 24 hr 05/22/23 05:44: WBC 8.0, RBC 3.64 L, Hgb 9.5 L, Hct 30.3 L, MCV 83.2, MCH 26.1 L, MCHC 31.4 L, RDW Std Deviation 44.6 H, RDW Coeff of [place] 14.7 H, Plt Count 517 H, MPV 8.9, Immature Gran % (Auto) 0.200, Neut % (Auto) 63.1, Lymph % (Auto) 14.1 L, [place] % (Auto) 11.0 H, Eos % (Auto) 11.1 H, Baso % (Auto) 0.5, Absolute Neuts (auto) 5.1, Absolute Lymphs (auto) 1.13, Nucleated RBC % 0, Sodium 134 L, Potassium 4.5, Chloride 103, Carbon Dioxide 29.0, Anion Gap 2 L, BUN 18, Creatinine 0.55, Estim Creat Clear Calc 59.50, Est GFR (MDRD) Af Amer 142, Est GFR (MDRD) Non-Af 117, BUN/Creatinine Ratio 32.9 H, Glucose 97, Calcium 9.1 Micro: Microbiology 05/17/23 12:49 Tissue - Knee Gram Stain - Final 05/17/23 12:49 Tissue - Knee Wound Culture - Final Pseudomonas aeruginosa 05/17/23 12:49 Tissue - Knee Anaerobic Culture - Final No growth in 5 days. 05/17/23 12:41 Tissue - Knee Gram Stain - Final 05/17/23 12:41 Tissue - Knee Wound Culture - Final Pseudomonas aeruginosa 05/17/23 12:41 Tissue - Knee Anaerobic Culture - Final No growth in 5 days. 05/17/23 13:08 Tissue - Knee Gram Stain - Final 05/17/23 13:08 Tissue - Knee Wound Culture - Final Pseudomonas aeruginosa 05/17/23 13:08 Tissue - Knee Anaerobic Culture - Final No growth in 5 days. 05/05/23 08:44 Swab (Method) Nasal Screen MRSA/MSSA - Final Physical Exam Narrative Alert and oriented x 3. Right lower extremity: Wound VAC dressing is clean dry and intact without fluid in its lines. There is a mild amount of erythema just over the patella coinciding with the area of greatest skin tension with closure stable from yesterday. Mildly violaceous. Sensations intact to light touch saphenous, sural, superficial peroneal, deep peroneal, and tibial distributions Motors intact EHL, DF, PF calves are soft and supple Assessment & Plan Assessment/Plan (1) Status post revision of total replacement of right knee: PLAN: 1. S/P revision right total knee replacement distal femoral replacement and entire tibial component POD #5 2. Continue Pain Medications: Tylenol, meloxicam, and oxycodone. Do not take any other nonsteroidal anti-inflammatories while using meloxicam/Mobic. Patient is tolerating current pain regimen well. Discussed use of narcotics for breakthrough pain as appropriate at home. 3. DVT Prophylaxis: Take 81 mg aspirin twice daily for 4 weeks postoperatively for DVT prophylaxis. Patient denies past history of DVT or pulmonary embolism 4. PT/OT: Weightbearing as tolerated with walker, range of motion and eccentric strengthening 5. H & H: repeat labs today reveal hemoglobin stable, currently asymptomatic. Continue with ferrous sulfate and folic acid. 6. Continue postoperative medical management per medicine 7. Consult infectious disease: Now 3 out of 3 cultures revealed Pseudomonas aerouginosa. Sensitivity findings show pansensitive. Patient will require PICC line and final antibiotics are being arranged. Need to obtain home health pre-[facility].. Currently on cefepime. I would continue to defer any further adjustments with antibiotics to infectious disease. Appreciate consultation and input for further treatment. We did retain the patient's longstem femoral component which was well-fixed. Use of chronic suppressive antibiotics was discussed with infectious disease in relation to retained implants 8. Wound: Incisional wound VAC currently in place for 1 week postoperatively due to the risk for drainage from extensive surgical history. There is been no output or drainage in the canister or tubing at this time. Plan will be for removal of the incisional wound VAC on May. Wound VAC removal was discussed with patient. They were instructed to turn the power off and allow the vacuum seal to resolve prior to removing. 9. Encouraged Incentive Spirometry 10. Disposition: Plan is for discharge to home with home health service once pre-CERT approval is obtained. Patient will require IV antibiotics and PICC line. Patient's pain has been well-controlled. Case management will be involved with appropriate discharge planning with home health for antibiotic administration and physical therapy. We will continue with physical therapy for range of motion and strengthening as well as above medications for pain and DVT prophylaxis. We did discuss at length potential for extensor lag. I have reviewed the [place] Automated Rx Reporting System (OARRS) report for this patient for refill pattern and other prescriber involvement as part of the appropriate surveillance for the provision of acute and chronic controlled medications. The report was requested and reviewed on the date of this entry and was considered in the prescribing process. This dictation was created using voice recognition software. Phonetic and/or grammatical errors may exist. (2) Infection of prosthetic right knee joint: PLAN: See above
--- NOTE | 2023-05-22 11:49 | DS.PCM_ITS ---
Providers Date of Admission: 05/17/23 Primary Care Physician: Andra Collins DO Consultations 05/17/23 15:08 Consult: Hospitalist Routine Consulting Provider: [facility] Reason for Consult: post op med management EMERGENT Consult: No Notified: Yes Date Notified: 05/17/23 Time Notified: 15:08 Method of Notification: Text 05/18/23 11:05 Consult: Onc/Wound/gear hobber operator Routine Comment: Reason for Consult:: Revision right total knee Comments:: placement of incisional wound vac 05/18/23 11:40 Consult: Infectious Disease Routine Consulting Provider: Syed Galaviz Reason for Consult: positive culture right JPI EMERGENT Consult: No Notified: Yes Date Notified: 05/18/23 Time Notified: 12:07 Method of Notification: Text Reason For Visit: IRRIGATION AND DEBRIDEMENT WITH REVISION OF DISTAL Diagnosis Discharge Diagnosis (1) Status post revision of total replacement of right knee: Status: Acute Code(s): Z96.651 - Presence of right artificial knee joint Plan: 1. S/P revision right total knee replacement distal femoral replacement and entire tibial component POD #5 2. Continue Pain Medications: Tylenol, meloxicam, and oxycodone. Do not take any other nonsteroidal anti-inflammatories while using meloxicam/Mobic. Patient is tolerating current pain regimen well. Discussed use of narcotics for breakthrough pain as appropriate at home. 3. DVT Prophylaxis: Take 81 mg aspirin twice daily for 4 weeks postoperatively for DVT prophylaxis. Patient denies past history of DVT or pulmonary embolism 4. PT/OT: Weightbearing as tolerated with walker, range of motion and eccentric strengthening 5. H & H: repeat labs today reveal hemoglobin stable, currently asymptomatic. Continue with ferrous sulfate and folic acid. 6. Continue postoperative medical management per medicine 7. Consult infectious disease: Now 3 out of 3 cultures revealed Pseudomonas aerouginosa. Sensitivity findings show pansensitive. Patient will require PICC line and final antibiotics are being arranged. Need to obtain home health pre- CERT.. Currently on cefepime. I would continue to defer any further adjustments with antibiotics to infectious disease. Appreciate consultation and input for further treatment. We did retain the patient's longstem femoral component which was well-fixed. Use of chronic suppressive antibiotics was discussed with infectious disease in relation to retained implants 8. Wound: Incisional wound VAC currently in place for 1 week postoperatively due to the risk for drainage from extensive surgical history. There is been no output or drainage in the canister or tubing at this time. Plan will be for removal of the incisional wound VAC on May. Wound VAC removal was discussed with patient. They were instructed to turn the power off and allow the vacuum seal to resolve prior to removing. 9. Encouraged Incentive Spirometry 10. Disposition: Plan is for discharge to home with home health service once pre-CERT approval is obtained. Patient will require IV antibiotics and PICC line. Patient's pain has been well-controlled. Case management will be involved with appropriate discharge planning with home health for antibiotic administration and physical therapy. We will continue with physical therapy for range of motion and strengthening as well as above medications for pain and DVT prophylaxis. We did discuss at length potential for extensor lag. I have reviewed the [place] Automated Rx Reporting System (OARRS) report for this patient for refill pattern and other prescriber involvement as part of the appropriate surveillance for the provision of acute and chronic controlled medications. The report was requested and reviewed on the date of this entry and was considered in the prescribing process. This dictation was created using voice recognition software. Phonetic and/or grammatical errors may exist. (2) Infection of prosthetic right knee joint: Status: Acute Code(s): T84.53XA - Infection and inflammatory reaction due to internal right knee prosthesis, initial encounter Plan: See above Medications at Discharge Home Medications ascorbic acid (vitamin C) 1,000 mg tablet (Vitamin C) 1,000 mg PO DAILY 12/03/15 fluticasone propionate 50 mcg/actuation nasal spray,suspension 2 spray PRN PRN Allergies 12/03/15 levothyroxine 25 mcg tablet 25 mcg PO DAILY thyroid 05/03/23 vitamins A,C,C-odcx-izldbj 4,296 mcg-226 mg-90 mg capsule (PreserVision AREDS) 1 cap PO BID 05/03/23 albuterol sulfate 90 mcg/actuation aerosol inhaler 2 inh inhalation Q4-6H PRN 05/10/23 biotin 5 mg capsule 5 mg PO DAILY 05/10/23 cholecalciferol (vitamin D3) 25 mcg (1,000 unit) tablet (Vitamin D3) 1,000 unit PO DAILY 05/10/23 ferrous sulfate 325 mg (65 mg iron) tablet 325 mg PO DAILY 05/11/23 folic acid 1 mg tablet 1 mg PO DAILY 05/11/23 acetaminophen 500 mg tablet 1,000 mg (2 x 500 mg) PO Q8 #0 tabs 05/22/23 aspirin 81 mg chewable tablet 81 mg PO BIDCM #0 tabs 05/22/23 cefepime 2 gram solution for injection 2 g IV Q12H 38 days 05/22/23 famotidine 20 mg tablet 20 mg PO DAILY 30 days #30 tabs 05/22/23 meloxicam 7.5 mg tablet 7.5 mg PO BID 30 days #60 tabs 05/22/23 oxycodone 5 mg tablet 5 - 10 mg (1 - 2 x 5 mg) PO Q6H PRN pain 7 days #42 tabs 05/22/23 promethazine 25 mg tablet 25 mg PO Q6H PRN PRN NAUSEA/VOMITING 5 days #20 tabs 05/22/23 sennosides 8.6 mg-docusate sodium 50 mg tablet (Stool Softener-Stimulant Laxative) 2 tab PO BID PRN constipation 5 days #20 tabs 05/22/23 Hospital Course Operations total knee replacement (Revision right total knee replacement with debridement.) Summary of Care Provided Hospital Course: Patient was brought to the hospital for revision of her right total knee replacement. Complete tibial component and distal femoral component were revised with retention of distal femoral stem. Patient tolerated the procedure well. Wound VAC was placed day after surgery and will be left in place for 1 week. Patient did grow out 3 out of 3 positive cultures for Pseudomonas aeruginosa. Infectious disease was consulted. After establishing identification of infectious bacteria infectious disease began the patient on cefepime. Home antibiotics and physical therapy were arranged for the patient and patient was eventually ready for discharge without significant complication during their stay. Physical Exam Narrative Right lower extremity: Wound VAC dressing is clean dry and intact without fluid in its lines. There is a mild amount of erythema just over the patella coinciding with the area of greatest skin tension with closure stable from yesterday. Mildly violaceous. Sensations intact to light touch saphenous, sural, superficial peroneal, deep peroneal, and tibial distributions Motors intact EHL, DF, PF calves are soft and supple Const alert, oriented x3 and no apparent distress Weight / BMI Weight Weight: 123 lb 7.342 oz Body Mass Index (BMI) 19.9 ABG / Lab / Microbiology Data 05/22/23 05:44 05/22/23 05:44 Laboratory: Laboratory Results - last 24 hr 05/22/23 05:44: WBC 8.0, RBC 3.64 L, Hgb 9.5 L, Hct 30.3 L, MCV 83.2, MCH 26.1 L , MCHC 31.4 L, RDW Std Deviation 44.6 H, RDW Coeff of Melida 14.7 H, Plt Count 517 H, MPV 8.9, Immature Gran % (Auto) 0.200, Neut % (Auto) 63.1, Lymph % (Auto) 14.1 L, Stephenson % (Auto) 11.0 H, Eos % (Auto) 11.1 H, Baso % (Auto) 0.5, Absolute Neuts (auto) 5.1, Absolute Lymphs (auto) 1.13, Nucleated RBC % 0, Sodium 134 L, Potassium 4.5, Chloride 103, Carbon Dioxide 29.0, Anion Gap 2 L, BUN 18, Creatinine 0.55, Estim Creat Clear Calc 59.50, Est GFR (MDRD) Af Amer 142, Est GFR (MDRD) Non-Af 117, BUN/Creatinine Ratio 32.9 H, Glucose 97, Calcium 9.1 Microbiology: Microbiology 05/17/23 12:49 Tissue - Knee Gram Stain - Final 05/17/23 12:49 Tissue - Knee Wound Culture - Final Pseudomonas aeruginosa 05/17/23 12:49 Tissue - Knee Anaerobic Culture - Final No growth in 5 days. 05/17/23 12:41 Tissue - Knee Gram Stain - Final 05/17/23 12:41 Tissue - Knee Wound Culture - Final Pseudomonas aeruginosa 05/17/23 12:41 Tissue - Knee Anaerobic Culture - Final No growth in 5 days. 05/17/23 13:08 Tissue - Knee Gram Stain - Final 05/17/23 13:08 Tissue - Knee Wound Culture - Final Pseudomonas aeruginosa 05/17/23 13:08 Tissue - Knee Anaerobic Culture - Final No growth in 5 days. 05/05/23 08:44 Swab (Method) Nasal Screen MRSA/MSSA - Final D/C Instructions Discharge Diet: No restrictions Discharge Activity: May Not Drive May shower in (days): 1 May resume sexual activity in: 1-2 weeks Ice area for (Minutes): 20 (every hour while awake.) Weight Bearing Status: Weight bearing as tolerated Keep extremity elevated above heart level: Operative Extremity Additional Activity Instructions: Wear elastic stockings for 2 weeks after your surgery. Call your doctor if your incision/area has: Continuous Slow Oozing, Sudden Increased Bleeding, Increased Pain/ Swelling, Increased Redness and Foul Smelling Discharge Call your doctor if you observe: Fever of 101 or Higher, Coldness, Increased Pain, Numbness or Tingling, Change in Color, Calf discomfort and Uncontrolled pain Change Dressing in: 1 day (and daily as needed.) Remove Dressing in: 3 days (May 25. When removing dressing turn off power from back via machine allow 1 to 2 minutes for vacuum to resolve and then remove like a large Band-Aid. If incision is clean dry and intact may leave the wound open to air and continue showering. If there is continued drainage continue daily dry d) Please Follow Up With: Ajith Villavicencio PA-C When: June 01, 2023 at 3 PM Follow-up with Dr. Galaviz 1 to 2 weeks from discharge Meaningful Use Info Meaningful Use Diagnoses (Choose all that apply): None applicable Discharge Plan Admission Admit Date/Time: 05/17/23 08:42 Attending Provider: Ryan Christie Primary Care Provider: Andra Collins Consulting Providers: Quan Alva; Christi Mohan; Darin Luu; Sendy Christy; Syed Galaviz Discharge Orders/Prescriptions Prescriptions: New acetaminophen 500 mg Tablet 1,000 mg PO Q8 Qty: 0 0RF aspirin 81 mg Tablet,Chewable 81 mg PO BIDCM Qty: 0 0RF meloxicam 7.5 mg Tablet 7.5 mg PO BID 30 Days Qty: 60 2RF famotidine 20 mg Tablet 20 mg PO DAILY 30 Days Qty: 30 0RF promethazine 25 mg tablet 25 mg PO Q6H PRN PRN (Reason: NAUSEA/VOMITING) 5 Days Qty: 20 0RF sennosides-docusate sodium [Stool Softener-Stimulant Laxat] 8.6-50 mg Tablet 2 tab PO BID PRN (Reason: constipation) 5 Days Qty: 20 2RF Rx Instructions: Maintain stool softener until bowel movements are regular. oxycodone 5 mg tablet 5 - 10 mg PO Q6H PRN (Reason: pain) 7 Days Qty: 42 0RF cefepime 2 gram recon soln 2 g IV Q12H 38 Days Rx Instructions: dx: prosthetic joint infection stop date 06/28/23 weekly bmp, cbc, and esr. Fax to [phone]. Continued biotin 5 mg capsule 5 mg PO DAILY albuterol sulfate 90 mcg/actuation HFA aerosol inhaler 2 inh inhalation Q4-6H PRN Patient Comments: 2 PUFFS(WAIT 1-5 MINUTES BETWEEN PUFFS) EVERY 4-6 HOURS INHALATION EVERY 6 HRS 90 DAYS folic acid 1 mg tablet 1 mg PO DAILY ferrous sulfate 325 mg (65 mg iron) tablet 325 mg PO DAILY ascorbic acid (vitamin C) [Vitamin C] 1,000 MG tablet 1,000 mg PO DAILY fluticasone propionate 1 SPRAY spray,suspension 2 spray NASAL PRN PRN (Reason: Allergies) cholecalciferol (vitamin D3) [Vitamin D3] 25 mcg (1,000 unit) tablet 1,000 unit PO DAILY levothyroxine 25 mcg tablet 25 mcg PO DAILY Patient Comments: TAKE 1 TABLET BY MOUTH EVERY DAY PreserVision AREDS 4,296 mcg-226 mg-90 mg capsule 1 cap PO BID Discontinued acetaminophen [Acetaminophen Extra Strength] 500 mg tablet 1,000 mg PO Q6H PRN (Reason: pain) Referrals / Follow Up: Brandt Hicks MD [Med Staff - Plastic Surgery Specialist] - Disposition Disposition (needs filled in before D/C Order can be placed): Home Health Service
[2023-05-22] MEDS: Ferrous Sulfate 325 MG Tablet PO (13:50)
--- NOTE | 2023-05-22 13:57 | PHA.DC.MC.R ---
Pharmacy [facility] has performed discharge medication reconciliation and counseling for this patient. The patient's discharge medication list was reviewed for discrepancies and discrepancies were resolved. The patient was counseled on the following discharge medications and changes in medications for homegoing were reviewed. The Reason for Use, instructions for use, and potential side effects were reviewed for all new medications. The patient's questions regarding all of their medications were answered. 1. Aspirin 81 mg PO BID x 4 weeks 2. Senna/docusate 2 tabs PO BID 3. Promethazine 25 mg Q6H PRN 4. Oxycodone 5-10 mg PO Q6H PRN 5. Cefepime 2 grams Q12H 6. Famotidine 20 mg PO daily 7. Acetaminophen 1000 mg PO Q8H The patient was able to verbally demonstrate an understanding of their discharge medications. The patient was counselled on new medications by accredited pharmacy technician Erick. Medications at Discharge Home Medications ascorbic acid (vitamin C) 1,000 mg tablet (Vitamin C) 1,000 mg PO DAILY 12/03/15 fluticasone propionate 50 mcg/actuation nasal spray,suspension 2 spray PRN PRN Allergies 12/03/15 levothyroxine 25 mcg tablet 25 mcg PO DAILY thyroid 05/03/23 vitamins A,C,J-eypu-bnxrjc 4,296 mcg-226 mg-90 mg capsule (PreserVision AREDS) 1 cap PO BID 05/03/23 albuterol sulfate 90 mcg/actuation aerosol inhaler 2 inh inhalation Q4-6H PRN 05/10/23 biotin 5 mg capsule 5 mg PO DAILY 05/10/23 cholecalciferol (vitamin D3) 25 mcg (1,000 unit) tablet (Vitamin D3) 1,000 unit PO DAILY 05/10/23 ferrous sulfate 325 mg (65 mg iron) tablet 325 mg PO DAILY 05/11/23 folic acid 1 mg tablet 1 mg PO DAILY 05/11/23 acetaminophen 500 mg tablet 1,000 mg (2 x 500 mg) PO Q8 #0 tabs 05/22/23 aspirin 81 mg chewable tablet 81 mg PO BIDCM #0 tabs 05/22/23 cefepime 2 gram solution for injection 2 g IV Q12H 38 days 05/22/23 famotidine 20 mg tablet 20 mg PO DAILY 30 days #30 tabs 05/22/23 meloxicam 7.5 mg tablet 7.5 mg PO BID 30 days #60 tabs 05/22/23 oxycodone 5 mg tablet 5 - 10 mg (1 - 2 x 5 mg) PO Q6H PRN pain 7 days #42 tabs 05/22/23 promethazine 25 mg tablet 25 mg PO Q6H PRN PRN NAUSEA/VOMITING 5 days #20 tabs 05/22/23 sennosides 8.6 mg-docusate sodium 50 mg tablet (Stool Softener-Stimulant Laxative) 2 tab PO BID PRN constipation 5 days #20 tabs 24
--- NOTE | 2023-05-22 14:03 | CASEMGMT ---
Addendum entered by Veronica Vaughn 05/22/23 16:24: ZOË MUSA updated by DC virtual assistant that [facility] will see patient tomorrow at 8am. IV ATBs confirmed for delivery this evening. ZOË MUSA updated discharge plan. ZOË MUSA udpated patient. Patient had no further questions or concerns. Original Note: ZOË MUSA received script for IV ATB for at discharge from ID. Per ID, ok to give next dose after 4pm prior to discharge and then start in am when HHC sees patient. ZOË MUSA updated floor nurse. ZOË MUSA updated discharging program manager environmental planning. ZOË MUSA in to updated patient regarding C acceptance with [facility]. Patient updated regarding plan for discharge today if C can see patient in the morning at home. Patient had no further questions or concerns. CM will continue to follow this patient and plan for a safe discharge.
--- NOTE | 2023-05-22 14:08 | PCM.PN.ID ---
Physical Exam Narrative Feeling better, pain controlled, no n/v/d. No fever. Const alert and no apparent distress General Appearance: cooperative Resp normal air movement and clear to auscultation bilaterally Cardio regular rate and regular rhythm GI soft to palpation, non-tender and non-distended Skin no rashes or lesions noted ID ID: Route of nutrition/ use of supplements: [] Nutritional Intake: [] IV Site: [] [place] Catheter: [] Assessment & Plan Assessment/Plan (1) Infection of prosthetic right knee joint: PLAN: Surg cx x3 with PsA. Cont cefepime for 6 week course, stop date 06/28/23 with weekly labs, ID followup in 2 weeks. Will follow, wrote rx, d/w ortho
--- NOTE | 2023-05-22 15:27 | PRO.PCM_ITS ---
Procedure Report Date of Procedure: 05/22/23 Assessment & Plan Assessment/Plan (1) Infection of prosthetic right knee joint: QUALIFIERS: Encounter type: initial encounter Qualified Code(s): T84.53XA - Infection and inflammatory reaction due to internal right knee prosthesis, initial encounter Procedures Radiology Radiology Access Procedures: PICC Procedure Time Out Time Out Informed consent given: Yes Consent signed: Yes Time out checklist: patient, procedure, site marked/identified, positioning of patient, supplies available and allergies confirmed Time out verified: Yes Time out date: 05/22/23 Time out time: 14:02 PICC Line Consent Screening tool completed:: Yes Consent obtained:: Yes Consent given by (patient or responsible libertarian):: patient Insertion Reason for Insertion: Custodial Medication Date of Insertion: 05/22/23 Ok to use: Yes Type of PICC inserted: Single Power PICC PICC Lot #: [id number] PICC Reference #: [id number] Microintroducer Used: Yes (in kit) Ultrasound/Equipment Used: Probe Cover Kit Trimmed Length (cm): 36 Insertion Length (cm): 36 Exposed Length (cm): 0 Tip Placement: Caval Atrial Junction Placement Confirmation: 3CG Insertion Vein: Right Brachial Insertion Attempts: 2 Local Anesthesia Used: Lidocaine 1% (in kit) Dressing Applied: Statlock and Tegaderm CHG Arm Measurement above site (in cm): 25 Patient Tolerated Procedure: Well Threading Difficulties: No Comments Comment: Patient identity was verified with two patient identifiers. Informed consent was obtained and time-out was completed. Hands were sanitized. The patient was positioned supine with right arm at 90 degrees. The patient's upper arm vasculature was assessed using ultrasound, and the right basilic vein was externally marked. An external measurement was obtained of 39 cm. External leads were applied to the patient's right upper chest and laterally and inferior of the umbilicus on the mid axillary line. Cap, mask, and prep gloves were donned. The underdrape was placed under the patient's arm. The site was prepped with chlorhexidine, and tourniquet was loosely applied. Prep gloves were discarded, and hands were sanitized. The sterile kit was opened with additional supplies dropped in. Sterile gown and gloves were donned, and the patient was draped. The sterile kit was assembled with all needle, introducer, connector, and catheter flushed with sterile normal saline. The marked site of insertion was anesthetized with 1% lidocaine. Patient tolerated well. The right basilic vein was then accessed using ultrasound guidance ; however, the guidewire was unable to be fully advanced to the safety serg. The guidewire and access needle were both removed. The second attempt was then made with the patient's right brachial vein, 3 cm proximal to the initial site. The site was again anesthetized locally with 1% lidocaine from the kit. The right brachial vein was then accessed using ultrasound guidance and the guidewire was easily advanced to the safety serg. The tourniquet was released. The access needle was removed while securing the guidewire in place. The site was again anesthetized with 1% lidocaine, prior to insertion of introducer sheath and dilator. Patient tolerated well. The catheter was trimmed to a length of 36 cm. Using 3C guidance, the catheter was then inserted through the introducer sheath, slowly. There was no resistance on insertion. Maximal p-wave, without deflection, was obtained at an insertion length of 36 cm, leaving 0 cm external. This confirms placement in the cavoatrial junction. The introducer sheath was retracted and peeled away, incrementally, while keeping the catheter secured. The stylet was removed. A flushed needleless connector was attached to the single-lumen. Blood return was verified and the lumen was flushed with sterile normal saline in a pulsatile fashion. Total sterile flushes used for the insertion was 6 10 ml syringes. Finally, the insertion site was cleaned with chlorhexidine, and the catheter was secured using a StatLock. The site was covered with a Tegaderm CHG Dressing. Baseline arm circumference was obtained at the insertion site and measured 25 cm. The patient was provided with a patient education handout on PICC line care and verbalized understanding of infection prevention, heavy lifting restriction, maintaining mobility, and watching for any signs of infection. Charge and primary nurse are aware that the PICC line is ready for use.
[2023-05-22 18:22] VITALS: BP 120/72; PULSE 74; RESP 16; TEMP 36.7; O2SAT 98
--- NOTE | 2023-05-23 08:15 | CASEMGMT ---
Discharge Planning [facility] Ramone RODRIGUEZ and CASSANDRA. Erin Sarkar, Discharge Planning Asst.
== END 2023-05-22 18:27 | disposition home health service (06) | DRG 468 ==
LOC: ACINP 08:48 → MS3 16:18
PROVIDERS: Anesthesiology; Family Medicine; Physician Assistant Surgical; Admitting Provider Specialist; PCP Family Medicine; Referring Provider Specialist; Visit Provider Specialist
PROC: 0SRC0J9 Replacement of Right Knee Joint with Synthetic Substitute, Cemented, Open Approach (ICD-10-PCS; principal; 2023-05-17 10:50)
DX: T84.53XA Infection and inflammatory reaction due to internal right knee prosthesis, initial encounter (principal); D64.9 Anemia, unspecified; E03.9 Hypothyroidism, unspecified; E78.00 Pure hypercholesterolemia, unspecified; M19.90 Unspecified osteoarthritis, unspecified site; Z79.1 Long term (current) use of non-steroidal anti-inflammatories (NSAID); Z96.651 Presence of right artificial knee joint; Y82.9 Unspecified medical devices associated with adverse incidents
CPT/HCPCS: 36415; 36569; 73560; 80048; 82040; 82962; 83735; 84443; 85025; 85027; 87015; 87070; 87075; 87077; 87081; 87102; 87116; 87176; 87184; 87186; 87205; 87206; 88305; 93005; 94668; 97110; 97116; 97162; 97165; 97530; 97535; 99252; C1776; J7050; J7120; A4216; G0463; J2405; J3475

== ENCOUNTER 2023-09-26 14:10 | Emergency (ER) | payer MEDICARE, OTHER, SELFPAY ==
[2023-09-26 14:11] VITALS: BP 146/73; PULSE 101; RESP 18; TEMP 36.6; O2SAT 98; BMI 19.9
[2023-09-26 15:20] VITALS: BP 139/74; PULSE 91; RESP 14; TEMP 36.6; O2SAT 98
--- NOTE | 2023-09-26 22:13 | EDS_ITS ---
HPI History of Present Illness Chief Complaint: Upper Extremity Injury Narrative Narrative: 67-year-old female presenting with concern that her PICC line is not infusing. She was unable to get it flushed by the nurse. She states he tried several times. Patient denies any pain or injury. No fevers or chills. She states that she has been receiving IV antibiotics through the PICC line as she has infection in her right leg which has been operated on several times with orthopedics. She states she sees orthopedics oncology and she can clinic. [facility] Medical History Osteopenia Hypercholesteremia Hypothyroid Cancer Arthritis Migraine headache History of pain when walking History of edema Septic arthritis of knee, right Home Medications ?Medication ?Instructions ?Recorded ?Last Taken ?Type ascorbic acid (vitamin C) 1,000 mg 1,000 mg PO DAILY 12/03/15 11/28/15 History tablet (Vitamin C) fluticasone propionate 50 2 spray PRN PRN Allergies 12/03/15 Unknown History mcg/actuation nasal spray,suspension levothyroxine 25 mcg tablet 25 mcg PO DAILY thyroid 05/03/23 05/17/23 06:30 History vitamins A,C,Q-xqhl-whnihd 4,296 1 cap PO BID 05/03/23 Unknown History mcg-226 mg-90 mg capsule (PreserVision AREDS) albuterol sulfate 90 mcg/actuation 2 inh inhalation Q4-6H PRN 05/10/23 Unknown History aerosol inhaler biotin 5 mg capsule 5 mg PO DAILY 05/10/23 Unknown History cholecalciferol (vitamin D3) 25 1,000 unit PO DAILY 05/10/23 Unknown History mcg (1,000 unit) tablet (Vitamin D3) ferrous sulfate 325 mg (65 mg 325 mg PO DAILY 05/11/23 Unknown History iron) tablet folic acid 1 mg tablet 1 mg PO DAILY 05/11/23 Unknown History acetaminophen 500 mg tablet 1,000 mg (2 x 500 mg) PO Q8 #0 tabs 05/22/23 Unknown Rx aspirin 81 mg chewable tablet 81 mg PO BIDCM #0 tabs 05/22/23 Unknown Rx cefepime 2 gram solution for 2 g IV Q12H 38 days 05/22/23 Unknown Rx injection famotidine 20 mg tablet 20 mg PO DAILY 30 days #30 tabs 05/22/23 Unknown Rx meloxicam 7.5 mg tablet 7.5 mg PO BID 30 days #60 tabs 05/22/23 Unknown Rx oxycodone 5 mg tablet 5 - 10 mg (1 - 2 x 5 mg) PO Q6H 05/22/23 Unknown Rx PRN pain 7 days #42 tabs promethazine 25 mg tablet 25 mg PO Q6H PRN PRN 05/22/23 Unknown Rx NAUSEA/VOMITING 5 days #20 tabs sennosides 8.6 mg-docusate sodium 2 tab PO BID PRN constipation 5 05/22/23 Unknown Rx 50 mg tablet (Stool days #20 tabs Softener-Stimulant Laxative) Allergy/AdvReac Type Severity Reaction Status Date / Time clindamycin Allergy Unknown PT UNSURE Verified 05/17/23 09:24 OF REACTION venlafaxine (From Effexor) AdvReac Severe Nausea Verified 05/17/23 09:24 escitalopram (From Lexapro) AdvReac Intermediate increased Verified 05/17/23 09:24 anxiety Sulfa (Sulfonamide AdvReac Intermediate Nausea Verified 05/17/23 09:24 Antibiotics) Family History Brother Hypertension Father Hypertension Mother Hypertension Myocardial infarction Surgical History Hx of lymph node excision Hx of colonoscopy Hx of tubal ligation Hx of total knee arthroplasty Hx of arthroscopic knee surgery Hx of total knee arthroplasty Hx of oral surgery Social History Smoking Status: Never smoker alcohol intake: current alcohol intake frequency: holidays/special occasions only substance use type: does not use caffeine: Yes Type: coffee Number of servings: 2 and tea Number of servings: 1 ROS ROS ED Constitutional Constitutional ED: Denies chills, fever(s) or sweats Eyes Eyes: Denies blurry vision or change in vision ENT ENT ED: Denies ear pain or sore throat Cardiovascular Cardiovascular: Denies chest pain, palpitations or racing heartbeat Respiratory/Chest Respiratory/Chest: Denies cough, dyspnea or sputum Gastrointestinal Gastrointestinal: Denies abdominal pain, constipation, diarrhea, nausea or vomiting Genitourinary Genitourinary ED: Denies dysuria, hematuria or urinary frequency Musculoskeletal Musculoskeletal: Denies arthralgias, myalgias or neck pain Integumentary Denies abscess, Abrasions or rash Neurologic Neurologic: Denies headache(s), paresthesias or weakness Psychiatric Psychiatric: Denies anxiety, depression, suicidal ideation or suicidal thoughts Endocrine Endocrinology: Denies polydipsia or polyuria EXAM Physical Exam Const Vital Signs: 09/26/23 14:11 09/26/23 15:20 Temperature 98 F 98 F Temperature Source Oral Pulse Rate 101 H 91 Respiratory Rate 18 14 Blood Pressure 146/73 H 139/74 H Blood Pressure Mean 97 95 Pulse Ox 98 98 Oxygen Delivery Method Room Air Positive well nourished General Appearance ED: NAD HEENT Reports moist mucous membranes normocephalic and atraumatic Eyes PERRL and EOMs intact bilaterally Resp normal respiratory effort and clear to auscultation bilaterally Cardio regular rate and regular rhythm Extremity Extremity Narrative: PICC line noted in the right upper arm without any evidence of induration or erythema. Neuro oriented x3 and CN's II-XII intact bilaterally Sensorium / Orientation: alert Motor Exam: strength 5/5 throughout Skin General Skin Exam: Negative for petechiae Lesions: no lesions MDM MDM MDM Narrative Medical decision making narrative: Patient presenting for evaluation of her PICC line which is not flushing. This was easily flushed by nursing with 10 cc of normal saline. At this point I do not feel the patient needs any workup or lab work. She was discharged home. Impression: 1. PICC line care Discharge Plan Triage Chief Complaint: Upper Extremity Injury ED Provider: Vince Daniel Dx/Rx/DC Orders Instructions: ED PICC Line Care Prescriptions: No Action biotin 5 mg capsule 5 mg PO DAILY albuterol sulfate 90 mcg/actuation HFA aerosol inhaler 2 inh inhalation Q4-6H PRN Patient Comments: 2 PUFFS(WAIT 1-5 MINUTES BETWEEN PUFFS) EVERY 4-6 HOURS INHALATION EVERY 6 HRS 90 DAYS folic acid 1 mg tablet 1 mg PO DAILY ferrous sulfate 325 mg (65 mg iron) tablet 325 mg PO DAILY ascorbic acid (vitamin C) [Vitamin C] 1,000 MG tablet 1,000 mg PO DAILY fluticasone propionate 1 SPRAY spray,suspension 2 spray NASAL PRN PRN (Reason: Allergies) cholecalciferol (vitamin D3) [Vitamin D3] 25 mcg (1,000 unit) tablet 1,000 unit PO DAILY levothyroxine 25 mcg tablet 25 mcg PO DAILY Patient Comments: TAKE 1 TABLET BY MOUTH EVERY DAY PreserVision AREDS 4,296 mcg-226 mg-90 mg capsule 1 cap PO BID acetaminophen 500 mg Tablet 1,000 mg PO Q8 Qty: 0 0RF aspirin 81 mg Tablet,Chewable 81 mg PO BIDCM Qty: 0 0RF meloxicam 7.5 mg Tablet 7.5 mg PO BID 30 Days Qty: 60 2RF famotidine 20 mg Tablet 20 mg PO DAILY 30 Days Qty: 30 0RF promethazine 25 mg tablet 25 mg PO Q6H PRN PRN (Reason: NAUSEA/VOMITING) 5 Days Qty: 20 0RF sennosides-docusate sodium [Stool Softener-Stimulant Laxat] 8.6-50 mg Tablet 2 tab PO BID PRN (Reason: constipation) 5 Days Qty: 20 2RF Rx Instructions: Maintain stool softener until bowel movements are regular. oxycodone 5 mg tablet 5 - 10 mg PO Q6H PRN (Reason: pain) 7 Days Qty: 42 0RF cefepime 2 gram recon soln 2 g IV Q12H 38 Days Rx Instructions: dx: prosthetic joint infection stop date 06/28/23 weekly bmp, cbc, and esr. Fax to [phone]. Primary Care Provider: Kevin Avendaño Print Language: Haitian Disposition Disposition: Home, Self Care Discharge Date/Time: 09/26/23 15:21
== END 2023-09-26 15:21 | disposition home or self-care (01) ==
LOC: ED 15:07
PROVIDERS: Emergency Provider Student in an Organized Health Care Education/Training Program; Visit Provider Student in an Organized Health Care Education/Training Program
DX: Z03.89 Encounter for observation for other suspected diseases and conditions ruled out (principal); E78.00 Pure hypercholesterolemia, unspecified; E03.9 Hypothyroidism, unspecified; Z79.899 Other long term (current) drug therapy; Z98.51 Tubal ligation status; Z96.659 Presence of unspecified artificial knee joint
CPT/HCPCS: 99282; A4216

== ENCOUNTER 2024-04-08 10:30 | Outpatient (RCR) | payer MEDICARE, OTHER, SELFPAY ==
--- NOTE | 2023-12-19 10:31 | HP.PTEVAL_ITS ---
Patient's Visit Information Visit Information Visit Information: SALVATORE GAMBOA is a 68 year old F referred to Physical Therapy by Tez Gregg MD with a diagnosis of R TKA revision. Date of Evaluation: 12/15/23 Physical Therapist: Diego Yen DPT Visit Plan Frequency: 3x /Week Duration: 6 Weeks Plan: ROM is good, no need to progress current ROM. Start with quad strengthening, SLS balance and progress functional strength. Progress gait as able progressing to cane. Subjective Subjective: Pt. is here today for her initial evaluation with diagnosis of infection of prosthetic knee joint (right). Pt. reports initially having bone cancer ~20 years ago. She has a bone excised with a replacement then. Pt. recently had an infection in Apr. She had surgery then developed another issue with a tendon rupture. She had a muscle transfer from the calf as well. She arrives walking with FWW with safe use. Pt. reports overall doing well. She has marked numbness throughout her knee and leg. Pt. is hopeful get back to all previous activities with acknowledges there might be some issues. Pt. did some home health prior to coming back to PT. Pt. is retired. Pt. is hopeful to get back to walking with LRD and increase her strength. Pain R knee: Pain Intensity (Out of 10): 4 Pain Intensity Range: 2 and 6 Objective Objective: POSTURE: Pt. has decent posture in stance. Pt. has R knee in slight hyper extension in stance. SLight knee valgus. Normal wt. shifting noted. PALPATION: Pt. has well healing incisions, both at knee and medial calf. No signs of infection. Pt. does have a muscle transfer to patellar region. NEURO: Pt. has marked decreased sensation throughout RLE most notably near anterior knee. ROM: R knee 0-0-91deg. Good HS length bilaterally. MMT: RLE: pt. has good quad set, but limited SLR. ~20 ext lag noted with SLR, slightly painful. HS strength: RLE 8#, LLE 18#. hip abd RLE 11#, LLE 21#. GAIT: Pt. ambulates with FWW with safe use of AD. Gait with SPC. Pt. tends to reach out for mccarthy and does not feel as stability. Marked quad instability noted slight hyper extension noted at times. TUG: with FWW: 18.1sec. 30 sec sit to stand: 6 without use of UEs. Balance/Special Test Scores Lower Extremity Functional Score: 30 Goals Goal 1:: LTG: Pt. to be I with HEP. Goal Time Frame: 6-8 Weeks Goal 2:: STG: Pt. to have increased R quad strength indicated by no extensor lag with SLR x20 rep. Goal Time Frame: 2 Weeks Goal 3:: LTG: Pt. to have symmetrical RLE strength compared to LLE. Goal Time Frame: 4-6 Weeks Goal 4:: LTG: Pt. to complete TUG with LRD with time less than 10sec. Goal Time Frame: 4-6 Weeks Goal 5:: LTG: Pt. to complete 30sec sit to stand rep test with at least 12 reps indicating increased functional strengthen. Goal Time Frame: 4-6 Weeks Goal 6:: LTG: Pt. negotiate 1 flight of stairs with 1 HR without LOB without increase in R knee pain. Goal Time Frame: 4-6 Weeks Rehabilitation Potential Physical Therapy Diagnosis: Pt. has signs and symptoms consistent with R TKA revision with muscle transfer. Pt. has marked hypomobility, weakness, and difficulty with walking. Pt. would benefit from PT to address the above limitation progressing back to previous levels of functional mobility. Rehabilitation Potential: Good Anticipated Interventions Patient/Client Instruction: Educate patient on: Condition, Plan of Care, Risk Factors and Benefits of Fitness Program For the Purpose of:: To improve decision making, To facilitate caregiver knowledge, To improve self management, To prevent re-injury and To improve ability to perform tasks related to life management Therapeutic Exercise to Include: Strength training, Power training, Endurance training, Flexibilty training and Gait and locomotor training For the Purpose of:: To decrease pain, To increase ROM, To improve nutrient delivery to tissue, To increase oxygenation perfusion, To improve muscle performance and motor function, To improve ability to perform ADL's, To improve gait and locomotor functions, To decrease soft tissue restriction, To increase flexibility/ROM, To improve endurance and To improve balance Text: Thank you for the opportunity to evaluate your patient. For Medicare and Medicare HMO plans, please review the plan of care and approve it. It will need to be FAXED BACK to us at [phone] for Medicare purposes. For Medicare only, by signing this I certify the plan of care. Please let me know if there are questions or concerns regarding this plan of care. Physician Signature: Date:__
--- NOTE | 2024-01-16 12:54 | HP.PTREVAL ---
Re-Evaluation Intro: Tez Gregg MD, It has been my pleasure to treat SALVATORE GAMBOA over the last 11 visits for R TKA revision. Please see the progress note below for an update on the physical therapy plan of care! Subjective Subjective: Pt. reports overall doing much better, but is still having difficulty with a feeling of instability during R stance phase. Pt. is still not feeling comfortable with gait with a SPC. She reports some of the sot tissue activities have been helpful. Objective Objective/Function: R knee, ROM: 0-0-98deg. MMT: L knee: ext 34.1#, flexion 21.4#. R knee: ext 11.2# mid range, flexion 18.1# mid range. Pt. does struggle with with TKE. SLR is difficulty she continues to have ~25deg lag with SLR. GAIT: Pt. is I with rollator without issue. Pt. is able to ambulate with SPC, but has to really focus on stability during R stance phase. It did not buckle on her today, but she is still pretty hesistant to progress gait with cane. STAIRS: Pt. is able to complete with 2 HR with step to pattern. TUG with SPC: 28sec. Difficulty with directional changes. Plan Plan Plan: Cont. with quad, glute medius strengthening, Add in gait with SPC as patient progresses. She is still limited with TKE, progress as able. SLS, Single leg leg press. may continue to use light IASTIM as needed. Balance/Gait/Functional tests Balance/Special Test Scores Lower Extremity Functional Score: 30 Goals Goals Goal 1:: LTG: Pt. to be I with HEP. Goal Time Frame: 6-8 Weeks Goal Progress: Progressing Goal 2:: STG: Pt. to have increased R quad strength indicated by no extensor lag with SLR x20 rep. Goal Time Frame: 2 Weeks Goal Progress: Progressing Goal 3:: LTG: Pt. to have symmetrical RLE strength compared to LLE. Goal Time Frame: 4-6 Weeks Goal Progress: Progressing Goal 4:: LTG: Pt. to complete TUG with LRD with time less than 10sec. Goal Time Frame: 4-6 Weeks Goal Progress: Progressing Goal 5:: LTG: Pt. to complete 30sec sit to stand rep test with at least 12 reps indicating increased functional strengthen. Goal Time Frame: 4-6 Weeks Goal Progress: Goal Met Goal 6:: LTG: Pt. negotiate 1 flight of stairs with 1 HR without LOB without increase in R knee pain. Goal Time Frame: 4-6 Weeks Goal Progress: Progressing Anticipated Interventions Anticipated Interventions Patient/Client Instruction: Educate patient on: Condition, Plan of Care, Risk Factors and Benefits of Fitness Program For the Purpose of:: To improve decision making, To facilitate caregiver knowledge, To improve self management, To prevent re-injury and To improve ability to perform tasks related to life management Therapeutic Exercise to Include: Strength training, Power training, Endurance training, Flexibilty training and Gait and locomotor training For the Purpose of:: To decrease pain, To increase ROM, To improve nutrient delivery to tissue, To increase oxygenation perfusion, To improve muscle performance and motor function, To improve ability to perform ADL's, To improve gait and locomotor functions, To decrease soft tissue restriction, To increase flexibility/ROM, To improve endurance and To improve balance Re-Evaluation Ending Re-evaluation ending: Please do not hesitate to contact me at [phone] by phone or if you have questions or concerns regarding this new plan of care! Sincerely, Diego Yen DPT
--- NOTE | 2024-02-12 09:54 | HP.PTREVAL_ITS ---
Re-Evaluation Intro: Tez Gregg MD, It has been my pleasure to treat SALVATORE GAMBOA over the last 21 visits for R TKA revision. Please see the progress note below for an update on the physical therapy plan of care! Subjective Subjective: Pt. reports overall doing better. She still has some pain, but is much more confident with her stability with gait with SPC. Pt. reports being HEP compliant. Objective Objective/Function: MMT: RLE: ext 8.7#, flexion 21.8#, hip: flexion 29.7#, abd 17.8# gait: Pt. was able to ambulate well with SPC, but is still gaurded. Decreased L step length to reduced R stance phase. TUG: with FWW 21.8sec, with SCP 32.8sec. STAIRS: Pt. was able to complete with reciprocal pattern with 2HR, marked weakness with RLE loaded phases. She was unable to complete reciprocally with descending. Pts. goals as still appropriate at this point in time. Cont. to work on TKE strength, gait with cane, and stair negotiation. Plan Plan Plan: Cont. with PT. 1) quad strengthening with focus on stability with last 30deg of extension 2) SL balance on RLE 3) gait with SPC with focus on better control, safety, increased L step length and [place]. Balance/Gait/Functional tests Balance/Special Test Scores Lower Extremity Functional Score: 35 Goals Goals Goal 1:: LTG: Pt. to be I with HEP. Goal Time Frame: 6-8 Weeks Goal Progress: Progressing Goal 2:: STG: Pt. to have increased R quad strength indicated by no extensor lag with SLR x20 rep. Goal Time Frame: 2 Weeks Goal Progress: Progressing Goal 3:: LTG: Pt. to have symmetrical RLE strength compared to LLE. Goal Time Frame: 4-6 Weeks Goal Progress: Progressing Goal 4:: LTG: Pt. to complete TUG with LRD with time less than 10sec. Goal Time Frame: 4-6 Weeks Goal Progress: Progressing Goal 5:: LTG: Pt. to complete 30sec sit to stand rep test with at least 12 reps indicating increased functional strengthen. Goal Time Frame: 4-6 Weeks Goal Progress: Goal Met Goal 6:: LTG: Pt. negotiate 1 flight of stairs with 1 HR without LOB without increase in R knee pain. Goal Time Frame: 4-6 Weeks Goal Progress: Progressing Anticipated Interventions Anticipated Interventions Patient/Client Instruction: Educate patient on: Condition, Plan of Care, Risk Factors and Benefits of Fitness Program For the Purpose of:: To improve decision making, To facilitate caregiver knowledge, To improve self management, To prevent re-injury and To improve ability to perform tasks related to life management Therapeutic Exercise to Include: Strength training, Power training, Endurance training, Flexibilty training and Gait and locomotor training For the Purpose of:: To decrease pain, To increase ROM, To improve nutrient delivery to tissue, To increase oxygenation perfusion, To improve muscle performance and motor function, To improve ability to perform ADL's, To improve gait and locomotor functions, To decrease soft tissue restriction, To increase flexibility/ROM, To improve endurance and To improve balance Re-Evaluation Ending Re-evaluation ending: Please do not hesitate to contact me at [phone] by phone or if you have questions or concerns regarding this new plan of care! Sincerely, Diego Yen DPT
--- NOTE | 2024-03-08 16:47 | HP.PTREVAL ---
Re-Evaluation Intro: Tez Gregg MD, It has been my pleasure to treat SALVATORE GAMBOA over the last 32 visits for R TKA revision. Please see the progress note below for an update on the physical therapy plan of care! Subjective Subjective: Pt. reports being 45% better. Objective Objective/Function: MMT: LLE: knee: ext 54.6# at 90deg, flexion 30.9#; hip: flexion 39.7#, abd 49.2#, ext34.4# RLE: knee: ext 11.5#at 90deg, flexion 20.5#; hip: [id number]#, abd 36.6#, ext 22.9#. SLR she was able to complete 3 reps w GAIT: pt. ambulated with SPC with decent stability. Pt. did have 1 episode of her R knee buckling. She was mary ellen to self correct. stairs: pt. is able ascend with 2 Hr with recirpocal pattern with decent control. She is able to safely descend with step to pattern and use of BUEs. She is able to complete with reciprocal pattern but has to heavily use HRs during R loaded phases. TU.6sec with SPC 6MWT: 910feet 30 sec sit to stand rep test: 11 GOALS up dated, some goals still appropriate. Plan Plan Plan: 1) continue with strengthening progressing gym exercises to I program 2) work on gait stability, SLS, may progress to control gait without AD is able to safely complete. 3) continue to progress quad strength/stability in TKE ranges. 4) progress dynamics stability as well. Balance/Gait/Functional tests Balance/Special Test Scores Lower Extremity Functional Score: 35 30 Second Chair Rise Test Seconds: 11 6 Minute Walk Test: 910 feet Goals Goals Goal 1:: LTG: Pt. to be I with HEP. Goal Time Frame: 6-8 Weeks Goal Progress: Progressing Goal 2:: STG: Pt. to have increased R quad strength indicated by no extensor lag with SLR x20 rep. Goal Time Frame: 2 Weeks Goal Progress: Progressing Goal 3:: LTG: Pt. to have symmetrical RLE strength compared to LLE. Goal Time Frame: 4-6 Weeks Goal Progress: Progressing Goal 4:: LTG: Pt. to complete TUG with LRD with time less than 10sec. Goal Time Frame: 4-6 Weeks Goal Progress: Progressing Goal 5:: LTG: Pt. to complete 30sec sit to stand rep test with at least 12 reps indicating increased functional strengthen. NEW GOAL: Pt. complete 30 sec to stand rep test with at least 16 reps. Goal Time Frame: 4-6 Weeks Goal Progress: Progressing Goal 6:: LTG: Pt. negotiate 1 flight of stairs with 1 HR without LOB without increase in R knee pain. Goal Time Frame: 4-6 Weeks Goal Progress: Progressing Anticipated Interventions Anticipated Interventions Patient/Client Instruction: Educate patient on: Condition, Plan of Care, Risk Factors and Benefits of Fitness Program For the Purpose of:: To improve decision making, To facilitate caregiver knowledge, To improve self management, To prevent re-injury and To improve ability to perform tasks related to life management Therapeutic Exercise to Include: Strength training, Power training, Endurance training, Flexibilty training and Gait and locomotor training For the Purpose of:: To decrease pain, To increase ROM, To improve nutrient delivery to tissue, To increase oxygenation perfusion, To improve muscle performance and motor function, To improve ability to perform ADL's, To improve gait and locomotor functions, To decrease soft tissue restriction, To increase flexibility/ROM, To improve endurance and To improve balance Re-Evaluation Ending Re-evaluation ending: Please do not hesitate to contact me at [phone] by phone or if you have questions or concerns regarding this new plan of care! Sincerely, Diego Yen DPT
== END 2024-04-08 19:00 | disposition home or self-care (01) ==
LOC: PT 10:30
PROVIDERS: Referring Provider Orthopaedic Surgery; Visit Provider Orthopaedic Surgery
DX: T84.59XD Infection and inflammatory reaction due to other internal joint prosthesis, subsequent encounter (principal); Z96.651 Presence of right artificial knee joint
CPT/HCPCS: 97110; 97116; 97140; 97161; 97530

== ENCOUNTER 2024-05-30 16:32 | Emergency (ER) | payer MEDICARE, OTHER, SELFPAY ==
[2024-05-30 16:33] VITALS: BP 148/76; PULSE 80; RESP 18; TEMP 36.2; O2SAT 100; BMI 17.9
[2024-05-30 16:34] VITALS: BP 148/76; PULSE 80; RESP 18; TEMP 36.2; O2SAT 100
[2024-05-30 17:57] LABS: Absolute Lymphocyte Count 1.07 X10^3/uL (0.83-4.51); Absolute Neutrophil Count 4.5 X10^3/uL (2.0-7.7); Basophil# 0.05 X10^3/uL; Basophil% 0.8 % (0-1); Eosinophil# 0.23 X10^3/uL; Eosinophils% 3.5 % (0-5); Hematocrit 38.1 % (37-47); Hemoglobin 12.1 g/dL (12.0-15.0); Lymphocyte # 1.07 X10^3/ul (0.83-4.51); Lymphocyte % 16.4 % (19-41); Mean Corp Hgb Conc 31.8 g/dL (32-36); Mean Corpuscular Hgb 27.8 pg (27.0-32.0); Mean Corpuscular Volume 87.4 fL (81-99); Mean Platelet Vol. 9.1 fl (6.2-12.0); Monocyte# 0.64 X10^3/uL; Monocyte% 9.8 % (0-10); NRBC Flagged by Analyzer 0 % (0-5); Neutrophil # 4.52 X10^3/uL (2.7-7.7); Neutrophil % 69.2 % (47-70); POSITIVE MORPHOLOGY YES; Platelet Count 431 K/mm3 (150-450); RBC Distribution Width CV 21.3 % (11.6-14.6); RBC Distribution Width SD 66.2 fl (35.1-43.9); Red Blood Count 4.36 M/mm3 (4.2-5.4); White Blood Count 6.5 K/mm3 (4.4-11.0)
[2024-05-30 17:59] LABS: Differential Indicated SCAN CRITERIA MET
[2024-05-30 18:27] LABS: Anisocytosis 2+; Differential Comment SCANNED
[2024-05-30 18:32] VITALS: BP 132/78; PULSE 64; RESP 18; O2SAT 96
--- NOTE | 2024-05-30 19:11 | EDS_ITS ---
HPI History of Present Illness Chief Complaint: Other, Pain/Inj Detail of Chief Complaint: Concern for infection PICC line Informant: patient and spouse/S.O. Onset/Context/Timing Onset: Yesterday (Yesterday there was some crusting at the site the PIC line catheter entered the skin.) Context: Sudden Onset Timing: Intermittent Quality: Crusting yesterday and today the PICC line was displaced centimeter Location: Medial distal left arm Current Severity: Gone Maximum Severity: Mild Worsened by: Nothing Relieved by: Nothing Associated Symptoms Associated Symptoms: No constitutional symptoms Narrative Narrative: Patient is a 68-year-old woman with a PICC line left arm. She is on Zosyn. 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 Visiting nurse contacted her infectious disease expert. Based on symptoms of yesterday and concerned by visiting nurse at the recommendation was come to the emergency room for evaluation. Patient [place] fever, chills night sweats. Patient had no drainage or crusting noted since yesterday. He had she has no symptoms at all. Prior similar symptoms: No Recent Illness/Hospitalization: Yes [facility] Medical History Osteopenia Hypercholesteremia Hypothyroid Cancer Arthritis Migraine headache History of pain when walking History of edema Septic arthritis of knee, right Home Medications ?Medication ?Instructions ?Recorded ?Last Taken ?Type ascorbic acid (vitamin C) 1,000 mg 1,000 mg PO DAILY 0 12/03/15 11/28/15 History tablet (Vitamin C) fluticasone propionate 50 2 spray PRN PRN Allergies Unknown History mcg/actuation nasal spray,suspension levothyroxine 25 mcg tablet 25 mcg PO DAILY thyroid 05/17/23 06:30 History vitamins A,C,O-ixue-rjfcxd 4,296 1 cap PO BID 05/03/23 Unknown History mcg-226 mg-90 mg capsule (PreserVision AREDS) albuterol sulfate 90 mcg/actuation 2 inh inhalation Q4 -6H PRN 05/10/23 Unknown History aerosol inhaler biotin 5 mg capsule 5 mg PO DAILY 05/10/23 Unkno wn History cholecalciferol (vitamin D3) 25 1,000 unit PO DAILY Unknown History mcg (1,000 unit) tablet (Vitamin D3) ferrous sulfate 325 mg (65 mg 325 mg PO DAILY 05/11/23 Unknown History iron) tablet folic acid 1 mg tablet 1 mg PO DAILY 05/11/23 Unkno wn History acetaminophen 500 mg tablet 1,000 mg (2 x 500 mg) PO Q 8 #0 tabs 05/22/23 Unknown Rx aspirin 81 mg chewable tablet 81 mg PO BIDCM #0 tabs 0 05/22/23 Unknown Rx cefepime 2 gram solution for 2 g IV Q12H 38 days 05/22 Unknown Rx injection famotidine 20 mg tablet 20 mg PO DAILY 30 days #30 t abs 05/22/23 Unknown Rx meloxicam 7.5 mg tablet 7.5 mg PO BID 30 days #60 ta bs 05/22/23 Unknown Rx oxycodone 5 mg tablet 5 - 10 mg (1 - 2 x 5 mg) PO Q6H 05/22/23 Unknown Rx PRN pain 7 days #42 tabs promethazine 25 mg tablet 25 mg PO Q6H PRN PRN 4 Unknown Rx NAUSEA/VOMITING 5 days #20 tabs sennosides 8.6 mg-docusate sodium 2 tab PO BID PRN con stipation 5 05/22/23 Unknown Rx 50 mg tablet (Stool days #20 tabs Softener-Stimulant Laxative) Allergy/AdvReac Type Severity Reaction Status Date / Time clindamycin Allergy Unknown PT UNSURE Verified 05/30/24 16:32 OF REACTION venlafaxine (From Effexor) AdvReac Severe Nausea Verified 05/30/24 16:32 escitalopram (From Lexapro) AdvReac Intermediate increased Verified 05/30/24 16:32 anxiety Sulfa (Sulfonamide AdvReac Intermediate Nausea Verified 05/30/24 16:32 Antibiotics) Family History Brother Hypertension Father Hypertension Mother Hypertension Myocardial infarction Surgical History Hx of lymph node excision Hx of colonoscopy Hx of tubal ligation Hx of total knee arthroplasty Hx of arthroscopic knee surgery Hx of total knee arthroplasty Hx of oral surgery Social History Smoking Status: Never smoker alcohol intake: current alcohol intake frequency: holidays/special occasions only substance use type: does not use caffeine: Yes Type: coffee Number of servings: 2 and tea Number of servings: 1 ROS ROS ED Constitutional Constitutional ED: Denies chills, fever(s), subjective or sweats Musculoskeletal Musculoskeletal: Denies arthralgias, myalgias or neck pain Integumentary Denies abscess or rash Neurologic Neurologic: Denies weakness EXAM Physical Exam Const Vital Signs: 05/30/24 16:32 05/30/24 16:33 05/30/24 16:34 Temperature 97.2 F L 97.2 F L Temperature Source Temporal Oral Pulse Rate 80 80 Respiratory Rate 18 18 Respiratory Effort Normal Non-Labored Respiratory Pattern Normal Blood Pressure 148/76 H 148/76 H Blood Pressure Mean 100 100 Pulse Ox 100 100 Oxygen Delivery Method Room Air Room Air 05/30/24 18:32 Temperature Temperature Source Pulse Rate 64 Respiratory Rate 18 Respiratory Effort Respiratory Pattern Blood Pressure 132/78 H Blood Pressure Mean 96 Pulse Ox 96 Oxygen Delivery Method Positive well nourished and well developed General Appearance ED: well developed and NAD; Negative for pallor HEENT Reports moist mucous membranes HEENT Narrative: Head is atraumatic normocephalic. Ears are normal. Eyes PERRL and EOMs intact bilaterally General Eye ED: Negative for pale conjunctiva or scleral icterus Resp normal respiratory effort Cardio regular rate and regular rhythm Extremity normal to inspection Extremity Narrative: PICC line noted distal medial left arm. There is no tenderness along the vein. There is no lymphangitis. There is no axillary lymphadenopathy. There is no crusting at the insertion site. Neuro oriented x3 and CN's II-XII intact bilaterally Sensorium / Orientation: alert Psych mental status grossly normal Skin no rashes or lesions noted, no wounds and skin turgor normal General Skin Exam: Negative for jaundice or pallor MDM MDM MDM Narrative Medical decision making narrative: Patient was informed that the catheter is displaced. Would not reinsert. The area around the insertion site looks good. Patient was observed and CBC was obtained. White count is normal. Spoke with the physician on-call for Dr. Destinee Pate infectious disease expert at [facility]. Plan is follow- up. She has to blood cultures were obtained. She was informed there is no evidence or concern on my part of infection. She was informed of what the picture of the took revealed. She was in agreement blood cultures are not needed at this time. Lab Data Lab results narrative: CBC is unremarkable. There is no shift or bandemia. Labs: Laboratory Results - last 24 hr 05/30/24 17:45 WBC 6.5 RBC 4.36 Hgb 12.1 Hct 38.1 MCV 87.4 MCH 27.8 MCHC 31.8 L RDW Std Deviation 66.2 H RDW Coeff of [place] 21.3 H Plt Count 431 MPV 9.1 Immature Gran % (Auto) 0.300 Neut % (Auto) 69.2 Lymph % (Auto) 16.4 L [place] % (Auto) 9.8 Eos % (Auto) 3.5 Baso % (Auto) 0.8 Absolute Neuts (auto) 4.5 Absolute Lymphs (auto) 1.07 Nucleated RBC % 0 Differential Comment SCANNED Anisocytosis 2+ Management Discussion w/another healthcare provider: [employer] (Infectious disease expert on-call for Dr. Destinee Pate as documented in the MDM portion of the EMR) Discharge Plan Triage Chief Complaint: Other, Pain/Inj ED Provider: Xander Carroll Dx/Rx/DC Orders Clinical Impression: Status post peripherally inserted central catheter (PICC) central line placement Prescriptions: No Action biotin 5 mg capsule 5 mg PO DAILY albuterol sulfate 90 mcg/actuation HFA aerosol inhaler 2 inh inhalation Q4-6H PRN Patient Comments: 2 PUFFS(WAIT 1-5 MINUTES BETWEEN PUFFS) EVERY 4-6 HOURS INHALATION EVERY 6 HRS 90 DAYS folic acid 1 mg tablet 1 mg PO DAILY ferrous sulfate 325 mg (65 mg iron) tablet 325 mg PO DAILY ascorbic acid (vitamin C) [Vitamin C] 1,000 MG tablet 1,000 mg PO DAILY fluticasone propionate 1 SPRAY spray,suspension 2 spray NASAL PRN PRN (Reason: Allergies) cholecalciferol (vitamin D3) [Vitamin D3] 25 mcg (1,000 unit) tablet 1,000 unit PO DAILY levothyroxine 25 mcg tablet 25 mcg PO DAILY Patient Comments: TAKE 1 TABLET BY MOUTH EVERY DAY PreserVision AREDS 4,296 mcg-226 mg-90 mg capsule 1 cap PO BID acetaminophen 500 mg Tablet 1,000 mg PO Q8 Qty: 0 0RF aspirin 81 mg Tablet,Chewable 81 mg PO BIDCM Qty: 0 0RF meloxicam 7.5 mg Tablet 7.5 mg PO BID 30 Days Qty: 60 2RF famotidine 20 mg Tablet 20 mg PO DAILY 30 Days Qty: 30 0RF promethazine 25 mg tablet 25 mg PO Q6H PRN PRN (Reason: NAUSEA/VOMITING) 5 Days Qty: 20 0RF sennosides-docusate sodium [Stool Softener-Stimulant Laxat] 8.6-50 mg Tablet 2 tab PO BID PRN (Reason: constipation) 5 Days Qty: 20 2RF Rx Instructions: Maintain stool softener until bowel movements are regular. oxycodone 5 mg tablet 5 - 10 mg PO Q6H PRN (Reason: pain) 7 Days Qty: 42 0RF cefepime 2 gram recon soln 2 g IV Q12H 38 Days Rx Instructions: dx: prosthetic joint infection stop date 06/28/23 weekly bmp, cbc, and esr. Fax to [phone]. Primary Care Provider: Kevin Avendaño Referrals: Kevin Avendaño DO [Primary Care Provider] - As Needed Print Language: Moz[place]ican Disposition Disposition: Home, Self Care
== END 2024-05-30 19:23 | disposition home or self-care (01) ==
PROVIDERS: Emergency Provider Emergency Medicine; Visit Provider Emergency Medicine
DX: Z95.9 Presence of cardiac and vascular implant and graft, unspecified (principal); E78.00 Pure hypercholesterolemia, unspecified; E03.9 Hypothyroidism, unspecified; Z79.890 Hormone replacement therapy; Z98.51 Tubal ligation status; Z96.659 Presence of unspecified artificial knee joint
CPT/HCPCS: 85025; 99283